=== PATIENT | male | born 1950 | race Caucasian/White ===

== ENCOUNTER 2022-06-09 09:10 | Inpatient (IN) | payer BC, MEDICARE ==
[2022-06-09] MEDS: DEXTROSE 5% IN WATER 1,000 ML IV ONE ×2 (12:00→21:45)
[2022-06-09 12:09] LABS: Glucose,Whole Blood 129 mg/dL (70-110)
[2022-06-09] MEDS ORDERED: NALOXONE 0.4 MG/ML 1 ML VIAL IV PRN (12:27)
[2022-06-09 12:28] LABS: ABG HCO3 25 mmol/L (21-25); ABG PCO2 37 mmHg (35-45); ABG PH 7.44 (7.35-7.45); ABG PO2 143 mmHg (83-108); ABG TCO2 26 mmol/L (19-24)
[2022-06-09 12:30] LABS: Allen Test Performed? no
--- NOTE | 2022-06-09 12:40 | PCN ---
PROCEDURE NOTE This is a Pulmonary/Critical Care procedure note. PROCEDURE: Left radial art line. PREOPERATIVE DIAGNOSES: Frequent blood draws and blood gas monitoring. POSTOPERATIVE DIAGNOSES: Frequent blood draws and blood gas monitoring. OPERATORS: Dr. Corey and Dr. Barcenas. PROCEDURE IN DETAIL: We used the left radial artery. There was no immediate complication. There was good blood return and waveform. The patient tolerated the procedure well. The catheter was sutured in place. A sterile dressing was applied by the nurse. There was no immediate complication, and there was informed consent and universal timeout. MMODL / IJN: [id number] /
--- NOTE | 2022-06-09 13:03 | P.CNPUL ---
History of Present Illness Consult date: 06/09/22 Requesting physician: Marii Rodriguez Reason for consult: other Chief complaint: Anoxic brain injury, cardiopulmonary arrest History of present illness: This is a 71-year-old male patient who was transferred from [facility] today on 06/09/2022 with a diagnosis of anoxic brain injury secondary to cardiopulmonary arrest. On 06/05/2022 patient was a witnessed collapse at home per his family. The exact details of resuscitation efforts, total downtime is unknown to us from the available documentation sent over from [facility], however there is a mention that patient had multiple unsuccessful intubation attempts per EMS related to a edematous upper airways. He was intubated by ER physician upon arrival to the [facility] emergency department. Per the nursing staff the reports starting CPR, and when EMS arrived the monitor showed sinus tachycardia. ACLS interventions are not known to us other than intubation attempts. Patient has history of multiple comorbid conditions including CVA, hypertension, poorly controlled diabetes mellitus type 2, previous history of DVT on Xarelto. Computed tomography scan of the brain showed no evidence for acute intracranial hemorrhage, no acute infarct, mass, mass effect or midline shift. There was mild white matter hypodensity relating to chronic small vessel ischemic disease. chest x-ray showed evidence of scattered septal opacities throughout the lungs possibly related to pulmonary edema. Patient was started on empiric antibiotics. He was started on IV Decadron related to upper airway edema. Computed tomography scan of the neck was reportedly negative. Patient's urine culture was reported to be positive for enterococci, and his sputum was positive for Klebsiella species. We'll try to obtain further information. Initial laboratory evaluation showed white blood cell count of 16.7, hemoglobin of 13.2, platelet count is 245, sodium is 137, potassium is 5.4, chloride is 100, CO2 is 21.8, BUN is 47, creatinine is 3.0, glucose was 408, calcium is 8.5, magnesium is 1.9, AST was 39, ALT was 26, alk phos was 71, total bilirubin was 1.2, INR was 1.07, urinalysis showed 2+ glucose, 1+ ketones, 3+ blood, 1+ leukocyte esterase, greater than 25 white blood cells, first set of troponins was less than 0.020, hemoglobin A1c was 9.1, TSH was 3.072. His antibiotic coverage was switched to Zosyn, renal ultrasound shows no hydronephrosis bilaterally. Follow-up computed tomography scan of the brain yesterday on 06/08/2022 showed no acute intracranial hemorrhage or midline shift, mild to moderate diffuse ventricular and sulcal prominence consistent with diffuse age-related cerebral atrophy, moderate low attenuation in the periventricular white matter consistent with chronic small vessel ischemic change, and near complete opacification of the right sphenoid sinus which was nonspecific. Patient has not been on any sedation, he remains intubated, according to the nursing staff patient was given a spontaneous breathing trial yesterday. He is comatose after being 2 days off sedation, he is withdrawing to pain, he is on assist-control mode of ventilation right now, he was transferred to the [facility] intensive care unit for neurology evaluation and treatment for possibility of anoxic brain injury. He was started on Keppra, stat EEG is pending. On arrival patient is on assist-control mode with a rate of 10, tidal volume is 500, FiO2 of 30% and PEEP of 5. He is on D5 W at a rate of 75 ML per hour for hyponatremia with a sodium of 153, no other drips. His propofol has been off for over 48 hours. No other sedatives, narcotics or hypnotics were given during that time. Blood gas was obtained on those settings showing pO2 of 143, pCO2 of 37, and pH of 7.44 and this was done on FiO2 of 30%. The rest of the blood work is pending at this time Review of Systems Per the chart, patient is unresponsive and intubated All systems: negative Constitutional: Denies chills, Denies fever Eyes: denies blurred vision, denies pain Ears, nose, mouth and throat: Denies headache, Denies sore throat Cardiovascular: Denies chest pain, Denies shortness of breath Respiratory: Denies cough Gastrointestinal: Denies abdominal pain, Denies diarrhea, Denies nausea, Denies vomiting Musculoskeletal: Denies myalgias Integumentary: Denies pruritus, Denies rash Neurological: Denies numbness, Denies weakness Psychiatric: Denies anxiety, Denies depression Endocrine: Denies fatigue, Denies weight change Past Medical History Past Medical History: CVA/TIA, Diabetes Mellitus, Deep Vein Thrombosis (DVT) Medications and Allergies Allergies Allergy/AdvReac Type Severity Reaction Status Date / Time No Known Allergies Allergy Verified 06/09/22 11:06 Physical Exam Vitals: Vital Signs FiO2 06/09/22 12:04 30 06/09/22 12:00 30 Intake and Output 06/08/22 06/09/22 06/09/22 22:59 06:59 14:59 Other: Weight 91.5 kg GENERAL EXAM: Unresponsive, deeply comatose, intubated, withdraws to deep painful stimuli, breathing disorder the vent, and does have a gag reflex comfortable in no apparent distress. HEAD: Normocephalic/atraumatic. EYES: Normal reaction of pupils, equal size. Conjunctiva pink, sclera white. NOSE: Clear with pink turbinates. THROAT: No erythema or exudates. NECK: No masses, no JVD, no thyroid enlargement, no adenopathy. CHEST: No chest wall deformity. Symmetrical expansion. LUNGS: Equal air entry with no crackles, wheeze, rhonchi or dullness. CVS: Regular rate and rhythm, normal S1 and S2, no gallops, no murmurs, no rubs ABDOMEN: Soft, nontender. No hepatosplenomegaly, normal bowel sounds, no guarding or rigidity. EXTREMITIES: No clubbing, no edema, no cyanosis, 2+ pulses and upper and lower extremities. MUSCULOSKELETAL: Muscle strength and tone increased, with possible decerebrate posturing SPINE: No scoliosis or deformity SKIN: No rashes CENTRAL NERVOUS SYSTEM: No focal deficits, increased muscle tone with decerebrate posturing Results - Laboratory Findings Abnormal lab findings: Abnormal Labs 06/09/22 12:08 POC Glucose (mg/dL) 129 H - Diagnostic Findings Additional studies: Reports of the chest x-ray, computed tomography scan of the brain from the [facility] reviewed, films have been sent to radiology Department Assessment and Plan Plan: Assessment: #1. Acute anoxic brain injury related to acute cardiopulmonary arrest. Patient was admitted to [facility] on 06/05/2022 after suffering of witnessed collapse per his family, with initiation of CPR, difficult intubation out in the field due to upper airway edema. Primary cause of the cardiopulmonary arrest is unknown at this time, awaiting further records from the [facility] #2. Acute hypoxic respiratory failure possibly related to aspiration pneumonia and sepsis. Sputum cultures showed Klebsiella species #3. Acute urinary tract infection related to enterococcus species currently on Zosyn #4. Acute kidney injury #5. Poorly controlled diabetes mellitus type 2 #6. Hypertension #7. Previous history of DVT on the Route toe #8. History of CVA Plan: Blood gas has been reviewed, Necessary vent adjustments have been made We will obtain baseline chest x-ray Stat neurology consultation Stat EEG Keep off sedation We'll continue Zosyn We will obtain further records from the [facility] Continue on Keppra DuoNeb breathing treatments 4 times a day and when necessary Daily labs, CBC, CMP, daily blood gas and chest x-ray Nephrology, cardiology, and ID service consultation in addition to neurology We'll continue to closely follow his clinical course I have personally seen and examined the patient, performed the documentation and the assessment and plan as written. Number of minutes spent on the visit: [15] Time with Patient: Greater than 30
--- NOTE | 2022-06-09 13:29 | XR ---
EXAMINATION TYPE: XR chest 1V portable DATE OF EXAM: 06/09/2022 COMPARISON: NONE HISTORY: Cardiac arrest TECHNIQUE: Single frontal view of the chest is obtained. FINDINGS: Endotracheal tube is overlying the tracheal air column with the distal tip approximately 6 cm from the level of the sathya. Left subclavian central venous catheter shows the distal tip overlyi ng the left innominate vein. There are overlying artifacts. NG tube is in place. There is no focal ai r space opacity, pleural effusion, or pneumothorax seen. The cardiac silhouette size is within riley l limits. Lung volumes are somewhat low. The osseous structures are intact. IMPRESSION: Intubation, central venous catheter placement as described, no evident complication
[2022-06-09] MEDS: INSULIN ASPART (NovoLOG) 100 UNIT/ML VIAL SQ SCH ×2 (13:49→16:59)
[2022-06-09 13:57] LABS: Basophils # (A) 0.1 k/uL (0-0.2); Basophils % (A) 0 %; Eosinophils # (A) 0.1 k/uL (0-0.7); Eosinophils % (A) 1 %; HGB 12.4 gm/dL (13.0-17.5); Lymphocytes # (A) 1.3 k/uL (1.0-4.8); Lymphocytes % (A) 11 %; MCH 29.6 pg (25.0-35.0); MCHC 33.5 g/dL (31.0-37.0); MCV 88.2 fL (80.0-100.0); Mean Platelet Volume 8.1; Monocytes # (A) 0.8 k/uL (0-1.0); Monocytes % (A) 8 %; Neutrophils % (A) 80 %; Platelet Count 249 k/uL (150-450); RDW 14.4 % (11.5-15.5); WBC 11.3 k/uL (3.8-10.6)
[2022-06-09 14:05] LABS: INR 0.9 (<1.2); Prothrombin Time 10.4 sec (9.0-12.0)
[2022-06-09 14:13] LABS: Albumin 2.9 g/dL (3.5-5.0); Total Bilirubin 0.6 mg/dL (0.2-1.3); Total Protein 5.4 g/dL (6.3-8.2)
[2022-06-09] MEDS: IPRATROPIUM-ALBUTEROL 3 ML NEB INHALATION SCH ×2 (15:37→19:49)
[2022-06-09 16:43] LABS: Glucose,Whole Blood 193 mg/dL (70-110)
[2022-06-09] MEDS: CLEVIDIPINE BUTYRATE 25 MG in EMPTY BAG 1 BAG IV SCH (16:58)
[2022-06-09] MEDS: PIPERACILLIN-TAZOBACTAM 3.375 GM in SODIUM CHLORIDE 0.9% 100 ML IVPB SCH (16:59)
[2022-06-09] MEDS: levETIRAcetam IV 500 MG in SODIUM CHLORIDE 0.9% 100 ML IVPB SCH (21:06)
[2022-06-09] MEDS: CHLORHEXIDINE GLUCONATE 15 ML CUP MUCOUS MEM SCH (21:06)
--- NOTE | 2022-06-09 22:41 | P.CONS ---
History of Present Illness - Reason for Consult Consult date: 06/09/22 Sepsis Requesting physician: Aubrey Corey - Chief Complaint Unresponsive x few days - History of Present Illness Patient is a 71-year male who recently presented to [facility] after the patient was found to be unresponsive at home subsequently adm itted to ICU patient did have evidence of Klebsiella pneumonia and did have positive blood culture with staph epi likely skin contamination, patient remains to be less responsive despite being off the sedation and the patient be transferred to [facility] ER to be evaluated by neurology and to have a EEG completed patient on presentation to this hospital has been afebrile patient is hemodynamically stable not requiring pressor support FiO2 is currently at 30% no significant purulent secretion through the ET diarrhea or any other changes reported by nursing staff Review of Systems Positive points has been mentioned in HPI complete review could not be obtained because of his underlying mental status Past Medical History Past Medical History: CVA/TIA, Diabetes Mellitus, Deep Vein Thrombosis (DVT) History of Any Multi-Drug Resistant Organisms: None Reported Past Surgical History: Heart Catheterization Additional Past Surgical History / Comment(s): No stenting with heart cath Past Anesthesia/Blood Transfusion Reactions: No Reported Reaction Smoking Status: Never smoker Medications and Allergies Home Medications Medication Instructions Recorded Confirmed Type Atorvastatin Calcium [Lipitor] 40 mg PO HS 06/09/22 06/09/22 History DULoxetine HCL [Cymbalta] 30 mg PO HS 06/09/22 06/09/22 History Folic Acid 1 mg PO DAILY 06/09/22 06/09/22 History Furosemide [Lasix] 20 mg PO DAILY PRN 06/09/22 06/09/22 History Insulin Aspart Prot/Insuln Asp 75 units SQ DIRECTED 06/09/22 06/09/22 History [Novolog Mix 70-30 Flexpen] Ketorolac 0.5% Ophth Soln [Acular 1 drop OPHTHALMIC QID 06/09/22 06/09/22 History 0.5%] Rivaroxaban [Xarelto] 20 mg PO DAILY 06/09/22 06/09/22 History amLODIPine [Norvasc] 10 mg PO DAILY 06/09/22 06/09/22 History lisinopriL [Zestril] 20 mg PO DAILY 06/09/22 06/09/22 History Allergies Allergy/AdvReac Type Severity Reaction Status Date / Time No Known Allergies Allergy Verified 06/09/22 11:06 Physical Exam Vitals: Vital Signs Temp Pulse Resp BP Pulse Ox FiO2 06/09/22 13:50 98 16 156/90 99 06/09/22 13:40 82 13 152/71 99 06/09/22 13:30 78 14 154/71 99 06/09/22 13:20 79 22 154/71 99 06/09/22 13:10 79 12 148/69 99 06/09/22 13:00 59 H 155/73 99 06/09/22 12:50 30 H 172/84 99 06/09/22 12:40 76 14 172/84 99 06/09/22 12:30 80 13 172/84 99 06/09/22 12:20 80 9 L 172/84 06/09/22 12:10 83 6 L 100 06/09/22 12:04 30 06/09/22 12:02 98.5 F 85 14 99 06/09/22 12:00 30 Intake and Output 06/09/22 06/09/22 06/09/22 06:59 14:59 22:59 Intake Total 156 Output Total 500 Balance -344 Intake: IV 6 0.9 Pressure Bag 6 Intake, IV Titration 150 Amount Dextrose 5% in Water 1, 150 000 ml @ 75 mls/hr IV . [id number] ONE Rx#:[id number] Output: Urine 500 Other: Weight 91.5 kg ABP, PAP, CO, CI - Last 8 Hours Arterial Blood Pressure 158/119 Arterial Blood Pressure 115/115 Arterial Blood Pressure 173/68 Arterial Blood Pressure 165/62 Arterial Blood Pressure 128/123 Arterial Blood Pressure 117/110 Arterial Blood Pressure 127/89 Arterial Blood Pressure 135/76 Arterial Blood Pressure 157/69 Arterial Blood Pressure 185/82 Arterial Blood Pressure 164/119 GENERAL DESCRIPTION: Elderly male intubated on the vent HEENT: Shows Pallor , no scleral icterus. Oral mucous membrane is dry. NECK: Trachea central, no thyromegaly. LUNGS: Unlabored breathing. Clear to auscultation anteriorly. No wheeze or crackle. HEART: S1, S2, regular rate and rhythm. No loud murmur ABDOMEN: Soft, no tenderness , guarding or rigidity, no organomegaly EXTREMITIES: No edema of feet. SKIN: No rash, no masses palpable. NEUROLOGICAL: The patient is sedated on the vent Results CBC & Chem 7: 06/13/22 07:50 06/13/22 07:50 Labs: Abnormal Lab Results - Last 24 Hours (Table) 06/09/22 06/09/22 06/09/22 Range/Units 12:08 12:26 13:40 WBC 11.3 H (3.8-10.6) k/uL RBC 4.20 L (4.30-5.90) m/uL Hgb 12.4 L (13.0-17.5) gm/dL Hct 37.0 L (39.0-53.0) % Neutrophils # 9.0 H (1.3-7.7) k/uL ABG pO2 143 H (83-108) mmHg ABG Total CO2 26 H (19-24) mmol/L ABG O2 Saturation 100.0 H (94-97) % Sodium (137-145) mmol/L Chloride (98-107) mmol/L BUN (9-20) mg/dL Creatinine (0.66-1.25) mg/dL Glucose (74-99) mg/dL POC Glucose (mg/dL) 129 H (70-110) mg/dL Calcium (8.4-10.2) mg/dL Troponin I (0.000-0.034) ng/mL Total Protein (6.3-8.2) g/dL Albumin (3.5-5.0) g/dL 06/09/22 06/09/22 Range/Units 13:40 13:40 WBC (3.8-10.6) k/uL RBC (4.30-5.90) m/uL Hgb (13.0-17.5) gm/dL Hct (39.0-53.0) % Neutrophils # (1.3-7.7) k/uL ABG pO2 (83-108) mmHg ABG Total CO2 (19-24) mmol/L ABG O2 Saturation (94-97) % Sodium 150 H (137-145) mmol/L Chloride 117 H (98-107) mmol/L BUN 65 H (9-20) mg/dL Creatinine 2.65 H (0.66-1.25) mg/dL Glucose 160 H (74-99) mg/dL POC Glucose (mg/dL) (70-110) mg/dL Calcium 8.0 L (8.4-10.2) mg/dL Troponin I 0.043 H* (0.000-0.034) ng/mL Total Protein 5.4 L (6.3-8.2) g/dL Albumin 2.9 L (3.5-5.0) g/dL Assessment and Plan (1) Aspiration pneumonia Status: Acute Code(s): J69.0 - PNEUMONITIS DUE TO INHALATION OF FOOD AND VOMIT SNOMED Code(s): 192149550 Plan: 1patient with acute respiratory failure which is likely multifactorial in this patient did have a [id number] cardiac arrest and concern for possible anoxic encephalopathy for the patient be transferred to this hospital to be evaluated by neurology and did have EEG completed patient did have complaint of pneumonia likely aspiration etiology suitable positive for Klebsiella at [facility]. 2patient to continue with Zosyn. We will follow on clinical condition and cultures to further adjust medication if needed Thank you for this consultation will follow this patient along with you Time with Patient: Greater than 30
[2022-06-10 00:05] LABS: Glucose,Whole Blood 277 mg/dL (70-110)
[2022-06-10] MEDS: PIPERACILLIN-TAZOBACTAM 3.375 GM in SODIUM CHLORIDE 0.9% 100 ML IVPB SCH ×4 (00:06→23:22)
[2022-06-10] MEDS: INSULIN ASPART (NovoLOG) 100 UNIT/ML VIAL SQ SCH ×3 (00:06→12:20)
[2022-06-10] MEDS: IPRATROPIUM-ALBUTEROL 3 ML NEB INHALATION SCH ×6 (00:11→19:35)
--- NOTE | 2022-06-10 00:45 | HP ---
HISTORY AND PHYSICAL CHIEF COMPLAINT: Acute respiratory arrest and anoxic brain damage. HISTORY OF PRESENT ILLNESS: This is a 71-year-old gentleman with a past medical history of multiple medical problems, who apparently had respiratory difficulties and collapse in the field. There was some delay in intubation. The patient was subsequently transferred to [facility] Emergency Room and was admitted in the ICU, but the patient has suspected anoxic brain damage, and then Dr. Tomlinson would like the patient to be transferred to [facility] for further evaluation and treatment at this time. Currently, the patient is intubated and mechanically ventilated. Vent settings are noted. The patient also has suspected aspiration pneumonia. The patient is on broad-spectrum IV antibiotics. The patient is closely monitored in ICU at this time. The patient is unable to provide a coherent history. Most of the history is taken from discussion with staff and review of the chart at this time. PAST MEDICAL HISTORY: Reviewed and includes hypertension. HOME MEDICATIONS: Previous medications were reviewed. SOCIAL HISTORY: Could not be taken because of the patient's mental status. FAMILY HISTORY: Could not be taken because of the patient's mental status. REVIEW OF SYSTEMS: Could not be taken because of the patient's mental status. PHYSICAL EXAMINATION: VITAL SIGNS: Pulse is 80, blood pressure 140/90, respirations 20. HEENT: Conjunctivae are normal. NECK: No jugular venous distention. CARDIOVASCULAR: S1 and S2 muffled. RESPIRATORY: Breath sounds diminished at the bases. Few scattered rhonchi and crackles. ABDOMEN: Soft and nontender. LEGS: No edema. CENTRAL NERVOUS SYSTEM: The patient is on mechanical ventilation. SKIN: No ulcer or rashes. JOINTS: No active deforming arthropathy LABORATORY DATA: Reviewed. ASSESSMENT: 1. Anoxic brain injury, possibly secondary to cardiorespiratory arrest. 2. Possible aspiration pneumonia and sepsis with acute hypoxic respiratory failure, on mechanical ventilation. 3. Acute urinary tract infection. 4. Diabetes mellitus, type 2. 5. Hypertension. 6. History of cerebrovascular accident. 7. History of deep venous thrombosis. RECOMMENDATIONS AND DISCUSSION: This is a 71-year-old gentleman presented with multiple complex medical issues. We will monitor the patient closely. Continue to monitor in the ICU. Broad-spectrum IV antibiotics. Bronchodilators. DVT prophylaxis. Closely follow with Dr. Corey. I would also recommend Neurology consultation and EEG also to evaluate the brain injury. Otherwise, overall prognosis is guarded. See orders for details. Further recommendations to follow. MMODL / IJN: [id number] /
--- NOTE | 2022-06-10 04:36 | EEG ---
ELECTROENCEPHALOGRAM REPORT PREAMBLE: This is a 71-year-old male with cardiac arrest. This study is performed to evaluate for underlying cerebral activity. The patient off sedation for last 48 hours. Patient is comatose. EEG FINDINGS: This is a 21-channel digital EEG recorded with video component, utilizing 10/20 international system with referential and bipolar montages. Background consists of poorly developed and regulated, mixed frequencies of 3-4 hertz theta, intermixed with some 1-2 hertz delta activity seen in bihemispheric region. Background does not seem to be reactive to coughing or suctioning procedure. Different stages of sleep were not seen. No focal or generalized epileptiform activity was seen. IMPRESSION: This is an abnormal EEG due to background slowing of at least moderate to severe degree. This is suggestive of generalized cerebral dysfunction as can be seen with toxic metabolic encephalopathy or due to diffuse structural brain abnormality. Clinical correlation is recommended. No obvious epileptiform activity was seen. Followup EEG recommended, if clinically indicated. ALEKSANDRA / OPALN: [id number] / [facility]
[2022-06-10 05:07] LABS: Basophils % (A) 0 %; Eosinophils # (A) 0.1 k/uL (0-0.7); Eosinophils % (A) 1 %; HCT 34.9 % (39.0-53.0); HGB 11.8 gm/dL (13.0-17.5); Lymphocytes # (A) 1.1 k/uL (1.0-4.8); Lymphocytes % (A) 10 %; MCH 30.4 pg (25.0-35.0); MCHC 33.8 g/dL (31.0-37.0); Mean Platelet Volume 8.6; Monocytes # (A) 0.7 k/uL (0-1.0); Monocytes % (A) 7 %; Neutrophils # (A) 8.6 k/uL (1.3-7.7); Neutrophils % (A) 81 %; Platelet Count 219 k/uL (150-450); RBC 3.87 m/uL (4.30-5.90); RDW 14.8 % (11.5-15.5); WBC 10.6 k/uL (3.8-10.6)
[2022-06-10 05:48] LABS: Albumin 2.6 g/dL (3.5-5.0); Calcium 7.1 mg/dL (8.4-10.2); Potassium 3.8 mmol/L (3.5-5.1); Total Bilirubin 0.6 mg/dL (0.2-1.3); Total Protein 4.8 g/dL (6.3-8.2)
[2022-06-10] MEDS: CLEVIDIPINE BUTYRATE 25 MG in EMPTY BAG 1 BAG IV SCH ×4 (06:07→19:11)
[2022-06-10 06:09] LABS: Glucose,Whole Blood 345 mg/dL (70-110)
[2022-06-10 06:09] LABS: ABG HCO3 22 mmol/L (21-25); ABG Oxygen Saturation 99.8 % (94-97); ABG PCO2 34 mmHg (35-45); ABG PH 7.42 (7.35-7.45); ABG PO2 157 mmHg (83-108); ABG TCO2 24 mmol/L (19-24)
[2022-06-10 06:11] LABS: Allen Test Performed? No
[2022-06-10] MEDS ORDERED: POTASSIUM CHLORIDE 20 MEQ in WATER FOR INJECTION 1 100ML.BAG IVPB ONE (06:23)
--- NOTE | 2022-06-10 07:53 | P.PN ---
Subjective Progress Note Date: 06/10/22 Principal diagnosis: Respiratory failure. 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 On 06/05/2022 patient was a witnessed collapse at home per his family. The exact details of resuscitation efforts, total downtime is unknown to us from the available documentation sent over from [facility], however there is a mention that patient had multiple unsuccessful intubation attempts per EMS related to a edematous upper airways. He was intubated by ER physician upon arrival to the [facility] emergency department. Per the nursing staff the reports starting CPR, and when EMS arrived the monitor showed sinus tachycardia. ACLS interventions are not known to us other than intubation attempts. Patient has history of multiple comorbid conditions including CVA, hypertension, poorly controlled diabetes mellitus type 2, previous history of DVT on Xarelto. Computed tomography scan of the brain showed no evidence for acute intracranial hemorrhage, no acute infarct, mass, mass effect or midline shift. There was mild white matter hypodensity relating to chronic small vessel ischemic disease. chest x-ray showed evidence of scattered septal opacities throughout the lungs possibly related to pulmonary edema. Patient was started on empiric antibiotics. He was started on IV Decadron related to upper airway edema. Computed tomography scan of the neck was reportedly negative. Patient's urine culture was reported to be positive for enterococci, and his sputum was positive for Klebsiella species. We'll try to obtain further information. Initial laboratory evaluation showed white blood cell count of 16.7, hemoglobin of 13.2, platelet count is 245, sodium is 137, potassium is 5.4, chloride is 100, CO2 is 21.8, BUN is 47, creatinine is 3.0, glucose was 408, calcium is 8.5, magnesium is 1.9, AST was 39, ALT was 26, alk phos was 71, total bilirubin was 1.2, INR was 1.07, urinalysis showed 2+ glucose, 1+ ketones, 3+ blood, 1+ leukocyte esterase, greater than 25 white blood cells, first set of troponins was less than 0.020, hemoglobin A1c was 9.1, TSH was 3.072. His antibiotic coverage was switched to Zosyn, renal ultrasound shows no hydronephrosis bilaterally. Follow-up computed tomography scan of the brain yesterday on 06/08/2022 showed no acute intracranial hemorrhage or midline shift, mild to moderate diffuse ventricular and sulcal prominence consistent with diffuse age-related cerebral atrophy, moderate low attenuation in the periventricular white matter consistent with chronic small vessel ischemic change, and near complete opacification of the right sphenoid sinus which was nonspecific. Patient has not been on any sedation, he remains intubated, according to the nursing staff patient was given a spontaneous breathing trial yesterday. He is comatose after being 2 days off sedation, he is withdrawing to pain, he is on assist-control mode of ventilation right now, he was transferred to the [facility] intensive care unit for neurology evaluation and treatment for possibility of anoxic brain injury. He was started on Keppra, stat EEG is pending. On arrival patient is on assist-control mode with a rate of 10, tidal volume is 500, FiO2 of 30% and PEEP of 5. He is on D5 W at a rate of 75 ML per hour for hyponatremia with a sodium of 153, no other drips. His propofol has been off for over 48 hours. No other sedatives, narcotics or hypnotics were given during that time. Blood gas was obtained on those settings showing pO2 of 143, pCO2 of 37, and pH of 7.44 and this was done on FiO2 of 30%. The rest of the blood work is pending at this time Progress note dated 06/10/2022. This patient was transferred from [facility] yesterday, to our intensive care unit. The patient was poorly responsive/unresponsive, and there was some concern about anoxic brain injury. The patient did have a cardiopulmonary arrest. Unfortunately, the patient was not waking up over there, and because it did not have neurology coverage see her, the patient was transferred here, by my partner. He was intubated on June 05. Currently, he remains on mechanical ventilator. Yesterday, we saw him when he came over and placed a left radial art line. He really had a central line. Neurology was consulted. EEG showed diffuse slowing. Norvasc was initiated today. Ventilator settings include the volume assist control, rate 16, tidal volume 500, FiO2 30%, and PEEP of 5. Blood gases show pO2 157, pCO2 34, pH is 7.42. The FiO2 was reduced down to 25%. The patient's getting D5W at 75 mL an hour, Cleveprex at 12 mg an hour, saline at 20 mL an hour, and vital high protein at 20 mL an hour, with a goal of 53. Labs today include a white count 10.6, hemoglobin 11.8, hematocrit 34.9, and platelet count 290,000. Sodium 145, potassium 3.8, chlorides 117, CO2 21, BUN 62, creatinine 2.59. Albumin is 2.6. Chest x-ray looks surprisingly normal, with a mildly elevated right diaphragm. The report from the outside hospital was sent the urine was positive for enterococci his sputum was positive for Klebsiella. Objective - Vital Signs Vital signs: Vital Signs Temp 98.9 F 06/10/22 04:00 Pulse 80 06/10/22 06:00 Resp 14 06/10/22 06:00 BP 132/58 06/10/22 06:00 Pulse Ox 98 06/10/22 06:00 FiO2 25 06/10/22 07:00 Intake & Output 06/09/22 06/10/22 06/10/22 18:59 06:59 18:59 Intake Total 471 1436.000 98 Output Total 850 850 25 Balance -379 586.000 73 Weight 94.5 kg 95.4 kg Intake: IV 471 936 78 0.9 Pressure Bag 21 36 3 Dextrose 5% in Water 1, 450 900 75 000 ml @ 75 mls/hr IV . [id number] [facility] Rx#:[id number] Intake, IV Titration 250.000 Amount Clevidipine Butyrate 25 50.000 mg In Empty Bag 1 bag @ 1 MG/HR 2 mls/hr IV .Q24H [facility] Rx#:[id number] Piperacillin-Tazobactam 3 100 .375 gm In Sodium Chloride 0.9% 100 ml @ 25 mls/hr IVPB Q8HR [facility] Rx# :[id number] levETIRAcetam IV 500 mg 100 In Sodium Chloride 0.9% 100 ml @ 400 mls/hr IVPB Q12HR [facility] Rx#:[id number] Tube Feeding 160 20 Other 90 Output: Urine 850 850 25 Other: Voiding Method Indwelling Catheter Indwelling Catheter ABP, PAP, CO, CI - Last Documented Arterial Blood Pressure 158/52 - Exam No acute distress, not on any sedation, and only responsive deep pain. No gag r eflex. Pupils sluggishly reactive. HEENT examination is grossly unremarkable. Oral endotracheal tube noted. Neck supple. Full range of motion. No adenopathy thyromegaly or neck vein distention. Cardiovascular examination reveals regular rhythm rate. S1-S2 normal. No S3 or S4. No discernible murmur noted. Heart rate 80 bpm. Lungs reveal mostly clear breath sounds. Minimal scattered rhonchi. No wheezes or crackles. Saturations 98%. Abdomen soft with bowel sounds. No masses. Extremities are intact. No cyanosis clubbing or edema. Skin reveals some bilateral lower extremity chronic venous changes. Neurologic examination is is unchanged. - Labs CBC & Chem 7: 06/10/22 04:45 06/10/22 04:45 Labs: Abnormal Lab Results - Last 24 Hours (Table) 06/09/22 06/09/22 06/09/22 Range/Units 12:08 12:26 13:40 WBC 11.3 H (3.8-10.6) k/uL RBC 4.20 L (4.30-5.90) m/uL Hgb 12.4 L (13.0-17.5) gm/dL Hct 37.0 L (39.0-53.0) % Neutrophils # 9.0 H (1.3-7.7) k/uL ABG pCO2 (35-45) mmHg ABG pO2 143 H (83-108) mmHg ABG Total CO2 26 H (19-24) mmol/L ABG O2 Saturation 100.0 H (94-97) % Sodium (137-145) mmol/L Chloride (98-107) mmol/L Carbon Dioxide (22-30) mmol/L BUN (9-20) mg/dL Creatinine (0.66-1.25) mg/dL Glucose (74-99) mg/dL POC Glucose (mg/dL) 129 H (70-110) mg/dL Calcium (8.4-10.2) mg/dL Troponin I (0.000-0.034) ng/mL Total Protein (6.3-8.2) g/dL Albumin (3.5-5.0) g/dL 06/09/22 06/09/22 06/09/22 Range/Units 13:40 13:40 16:42 WBC (3.8-10.6) k/uL RBC (4.30-5.90) m/uL Hgb (13.0-17.5) gm/dL Hct (39.0-53.0) % Neutrophils # (1.3-7.7) k/uL ABG pCO2 (35-45) mmHg ABG pO2 (83-108) mmHg ABG Total CO2 (19-24) mmol/L ABG O2 Saturation (94-97) % Sodium 150 H (137-145) mmol/L Chloride 117 H (98-107) mmol/L Carbon Dioxide (22-30) mmol/L BUN 65 H (9-20) mg/dL Creatinine 2.65 H (0.66-1.25) mg/dL Glucose 160 H (74-99) mg/dL POC Glucose (mg/dL) 193 H (70-110) mg/dL Calcium 8.0 L (8.4-10.2) mg/dL Troponin I 0.043 H* (0.000-0.034) ng/mL Total Protein 5.4 L (6.3-8.2) g/dL Albumin 2.9 L (3.5-5.0) g/dL 06/10/22 06/10/22 06/10/22 Range/Units 00:03 04:45 04:45 WBC (3.8-10.6) k/uL RBC 3.87 L (4.30-5.90) m/uL Hgb 11.8 L (13.0-17.5) gm/dL Hct 34.9 L (39.0-53.0) % Neutrophils # 8.6 H (1.3-7.7) k/uL ABG pCO2 (35-45) mmHg ABG pO2 (83-108) mmHg ABG Total CO2 (19-24) mmol/L ABG O2 Saturation (94-97) % Sodium (137-145) mmol/L Chloride 117 H (98-107) mmol/L Carbon Dioxide 21 L (22-30) mmol/L BUN 62 H (9-20) mg/dL Creatinine 2.59 H (0.66-1.25) mg/dL Glucose 309 H (74-99) mg/dL POC Glucose (mg/dL) 277 H (70-110) mg/dL Calcium 7.1 L (8.4-10.2) mg/dL Troponin I (0.000-0.034) ng/mL Total Protein 4.8 L (6.3-8.2) g/dL Albumin 2.6 L (3.5-5.0) g/dL 06/10/22 06/10/22 Range/Units 05:32 06:07 WBC (3.8-10.6) k/uL RBC (4.30-5.90) m/uL Hgb (13.0-17.5) gm/dL Hct (39.0-53.0) % Neutrophils # (1.3-7.7) k/uL ABG pCO2 34 L (35-45) mmHg ABG pO2 157 H (83-108) mmHg ABG Total CO2 (19-24) mmol/L ABG O2 Saturation 99.8 H (94-97) % Sodium (137-145) mmol/L Chloride (98-107) mmol/L Carbon Dioxide (22-30) mmol/L BUN (9-20) mg/dL Creatinine (0.66-1.25) mg/dL Glucose (74-99) mg/dL POC Glucose (mg/dL) 345 H (70-110) mg/dL Calcium (8.4-10.2) mg/dL Troponin I (0.000-0.034) ng/mL Total Protein (6.3-8.2) g/dL Albumin (3.5-5.0) g/dL Assessment and Plan Assessment: #1. Acute anoxic brain injury related to acute cardiopulmonary arrest. Patient was admitted to [facility] on 06/05/2022 after suffering of witnessed collapse per his family, with initiation of CPR, difficult intubation out in the field due to upper airway edema. Primary cause of the cardiopulmonary arrest is unknown at this time, awaiting further records from the [facility]. #2. Acute hypoxic respiratory failure possibly related to aspiration pneumonia and sepsis. Sputum cultures showed Klebsiella species. #3. Acute urinary tract infection related to enterococcus species currently on Zosyn. #4. Acute kidney injury. #5. Poorly controlled diabetes mellitus type 2. #6. Hypertension. #7. Previous history of DVT. #8. History of CVA Plan: Plan dated 06/10/2022. The patient is being nourished. We will increase tube feedings to goal. The FiO2 on the ventilator was reduced down to 25%. We will initiate Norvasc today, which she was taking at home, and weaning the Cleveprex. Sodium is much improved. Blood gases are stable. The patient is apparently scheduled for repeat computed tomography scan of the brain today. Neurology was consulted. EEG showed diffuse moderate to severe slowing. This is consistent with anoxic and/or metabolic encephalopathy. If the patient does not improve, consideration of tracheostomy and PEG tube placement will be discussed with family. Time with Patient: Greater than 30
[2022-06-10] MEDS: ENOXAPARIN 30 MG/0.3 ML SYRINGE SQ SCH (08:05)
[2022-06-10] MEDS: FOLIC ACID 1 MG TAB PO SCH (08:05)
[2022-06-10] MEDS: ATORVASTATIN 40 MG TAB PO SCH (08:05)
[2022-06-10] MEDS: levETIRAcetam IV 500 MG in SODIUM CHLORIDE 0.9% 100 ML IVPB SCH ×2 (08:05→20:32)
[2022-06-10] MEDS: amLODIPine 10 MG TAB PO SCH (08:05)
[2022-06-10] MEDS: PANTOPRAZOLE 40 MG/10 ML VIAL IV SCH (08:06)
[2022-06-10] MEDS: CHLORHEXIDINE GLUCONATE 15 ML CUP MUCOUS MEM SCH ×2 (08:06→20:32)
--- NOTE | 2022-06-10 08:17 | P.CNNES ---
History of Present Illness Consult date: 06/09/22 Requesting physician: Risa Del Valle Reason for Consult: Pt off sedation not waking up History of Present Illness: Patient is a 71-year-old male who presented by EMS to [facility] on 06/05/2022 at around noon for unresponsiveness. EMS reported that they were contacted by the patient's family with the report that family had witnessed the patient collapsed approximately an hour to an hour and a half prior to arrival to the emergency department. Patient does have history of CVA and take Xarelto. Patient did not fall or suffer from trauma during the acute unresponsiveness, as he was sitting in the lazy boy recliner. EMS reported that they attempted to intubate the patient but were unsuccessful. Patient arrived being bagged with the GCS of 3. EMS reported several failed attempts to intuba te the patient in the field. Patient's , and her sister in patient's brother present today. They mentioned that patient has been suffering from frequent falls for the last 1 year. He is felt 4 or 5 times, couple times of the home, other times at other places. He would fall, unclear if he loses consciousness or falls because of losing balance. Patient apparently passed out while he was sitting in the recliner. Patient's has dementia, could not get him up. She went to her sister's house and informed to help her get up. Then patient's and her sister came over, patient was laying in the recliner, half on, and the lower half on the floor. He was snowboarding, gurgling with agonal breathing. Shortly after she noticed that patient was not breathing with no pulse. She started CPR and called EMS. They arrived within minutes. And after short CPR, the pulse came back. Exact downtime is unclear. Patient was initially taken to [facility]. He was transferred to [facility] and arrived today at 11:57 AM. Patient is off sedation for last 48 hours. Patient's [id number] has noticed that he had a one big jerk once. Nurse reported some transient tremor of the left upper arm for which he has received Keppra. Patient has history of arthritis, diabetes type 2, DVT on Xarelto, GERD hypertension. Patient's blood tests at [facility] showed a BBC 16.7, hemoglobin 13.2, platelets 345. Sodium 137 potassium 5.4, BUN 47 and creatinine 3.0, AST 39, ALT 26. Troponin 81. ENTproBNP 2195, UA showed 1+ leukocyte esterase, more than 25 WBCs and no bacteria. Urine drug screen was negative. Blood alcohol level negative. PT/PTT was normal. CT head revealed no evidence for acute intracranial hemorrhage, acute infarct, mass effect or mi dline shift. No extra-axial fluid collection. Mild ventricular megaly is unchanged likely secondary to central cerebral volume loss. Mild white matter hypodensity relating to chronic small vessel ischemic disease, unchanged. Patient was seen by professor of biostatistics, diagnosed with non-STEMI related to septic shock and prolonged downtime. Septic shock, due to UTI, acute kidney injury. Patient had a prior XIN which showed no cardiac source of emboli. Patient was seen by nephrology, diagnosed with acute kidney injury due to bacteremia, chronic renal disease stage III hemoglobin A1c 7.[address] head from 06/08/2022 revealed no acute intracranial hemorrhage or midline shift. There is mild to moderate diffuse cerebral atrophy and moderate chronic small vessel ischemic change redemonstrated. No significant change from recent prior CT. I personally reviewed CT head from 06/05/2022 and 06/08/2022 and agree with the findings. 2-D echo revealed LV EF 55-60%. Normal left ventricular segmental wall motion. Mild AR. Patient has no history of tobacco or alcohol use. He does have type 2 diabetes and hypertension. Review of Systems Spoke to the family, not able to provide any further review of systems. He was fine prior to passing out. ROS unobtainable: due to endotracheal tube, due to mental status Past Medical History Past Medical History: CVA/TIA, Diabetes Mellitus, Deep Vein Thrombosis (DVT) History of Any Multi-Drug Resistant Organisms: None Reported Past Surgical History: Heart Catheterization Additional Past Surgical History / Comment(s): No stenting with heart cath Past Anesthesia/Blood Transfusion Reactions: No Reported Reaction Smoking Status: Never smoker Medications and Allergies Home Medications Medication Instructions Recorded Confirmed Type Atorvastatin Calcium [Lipitor] 40 mg PO HS 06/09/22 06/09/22 History DULoxetine HCL [Cymbalta] 30 mg PO HS 06/09/22 06/09/22 History Folic Acid 1 mg PO DAILY 06/09/22 06/09/22 History Furosemide [Lasix] 20 mg PO DAILY PRN 06/09/22 06/09/22 History Insulin Aspart Prot/Insuln Asp 75 units SQ DIRECTED 06/09/22 06/09/22 History [Novolog Mix 70-30 Flexpen] Ketorolac 0.5% Ophth Soln [Acular 1 drop OPHTHALMIC QID 06/09/22 06/09/22 History 0.5%] Rivaroxaban [Xarelto] 20 mg PO DAILY 06/09/22 06/09/22 History amLODIPine [Norvasc] 10 mg PO DAILY 06/09/22 06/09/22 History lisinopriL [Zestril] 20 mg PO DAILY 06/09/22 06/09/22 History Allergies Allergy/AdvReac Type Severity Reaction Status Date / Time No Known Allergies Allergy Verified 06/09/22 11:06 Physical Examination - Vital Signs Vital Signs: Vital Signs Temp Pulse Resp BP Pulse Ox FiO2 06/09/22 15:20 75 16 141/66 98 06/09/22 15:10 75 14 146/66 98 06/09/22 15:00 75 16 142/66 99 06/09/22 14:50 75 13 142/66 98 06/09/22 14:40 76 13 144/68 98 06/09/22 14:30 78 16 143/66 99 06/09/22 14:20 74 16 143/66 99 06/09/22 14:10 75 16 147/68 99 06/09/22 14:00 77 18 156/90 98 06/09/22 13:50 98 16 156/90 99 06/09/22 13:40 82 13 152/71 99 06/09/22 13:30 78 14 154/71 99 06/09/22 13:20 79 22 154/71 99 06/09/22 13:10 79 12 148/69 99 06/09/22 13:00 59 H 155/73 99 06/09/22 12:50 30 H 172/84 99 06/09/22 12:40 76 14 172/84 99 06/09/22 12:30 80 13 172/84 99 06/09/22 12:20 80 9 L 172/84 06/09/22 12:10 83 6 L 100 06/09/22 12:04 30 06/09/22 12:02 98.5 F 85 14 99 06/09/22 12:00 30 Intake and Output 06/09/22 06/09/22 06/09/22 06:59 14:59 22:59 Intake Total 234 156 Output Total 550 100 Balance -316 56 Intake: IV 9 6 0.9 Pressure Bag 9 6 Intake, IV Titration 225 150 Amount Dextrose 5% in Water 1, 225 150 000 ml @ 75 mls/hr IV . [id number] [facility] Rx#:[id number] Output: Urine 550 100 Other: Weight 94.5 kg ABP, PAP, CO, CI - Last 8 Hours Arterial Blood Pressure 156/67 Arterial Blood Pressure 155/67 Arterial Blood Pressure 149/67 Arterial Blood Pressure 144/67 Arterial Blood Pressure 138/69 Arterial Blood Pressure 124/83 Arterial Blood Pressure 121/82 Arterial Blood Pressure 118/79 Arterial Blood Pressure 129/104 Arterial Blood Pressure 158/119 Arterial Blood Pressure 115/115 Arterial Blood Pressure 173/68 Arterial Blood Pressure 165/62 Arterial Blood Pressure 128/123 Arterial Blood Pressure 117/110 Arterial Blood Pressure 127/89 Arterial Blood Pressure 135/76 Arterial Blood Pressure 157/69 Arterial Blood Pressure 185/82 Arterial Blood Pressure 164/119 Patient is an elderly male, who is comatose, with GCS of 4(E1, V1, M2). Patient is comatose, intubated. Patient is not on any sedation for last 48 hours. On cranial nerve examination, pupils are very small, and the left pupil is slightly bigger than the right. Both are mildly reactive. Right eye is slightly deviated inwards and upwards. The left eye is in the primary position. Oculocephalics are absent. Corneals absent. Patient does have gag and cough. He is breathing occasionally over the ventilator. On muscle strength testing, patient has very minimal movement of the arms to painful stimuli, but not in the legs. Deep tendon reflexes are symmetric (right/left) very hypoactive in the lower, but has bilateral Babinski positive. Sensory to touch cannot be assessed, response to painful stimuli as above. Cerebellar function cannot be assessed. Tone is at least moderately increased bilaterally. Gait not able to be tested. On general examination, there is no carotid bruit or murmur, S1-S2 audible. Chest is clear on consultation. Abdomen is soft nontender. No organomegaly, bowel sounds present. Mild peripheral edema. Results - Laboratory Findings CBC and BMP: 06/10/22 04:45 06/10/22 04:45 Abnormal Lab Findings: Abnormal Labs 06/09/22 06/09/22 06/09/22 12:08 12:26 13:40 WBC 11.3 H RBC 4.20 L Hgb 12.4 L Hct 37.0 L Neutrophils # 9.0 H ABG pO2 143 H ABG Total CO2 26 H ABG O2 Saturation 100.0 H Sodium Chloride BUN Creatinine Glucose POC Glucose (mg/dL) 129 H Calcium Troponin I Total Protein Albumin 06/09/22 06/09/22 13:40 13:40 WBC RBC Hgb Hct Neutrophils # ABG pO2 ABG Total CO2 ABG O2 Saturation Sodium 150 H Chloride 117 H BUN 65 H Creatinine 2.65 H Glucose 160 H POC Glucose (mg/dL) Calcium 8.0 L Troponin I 0.043 H* Total Protein 5.4 L Albumin 2.9 L Assessment and Plan Assessment: * Status post cardiac arrest, with unclear downtime. Patient at present comatose with GCS of 4. * Hypertension * Diabetes2 * History of recurrent falls in the last 1 year. Plan: * EEG was performed today. This is an abnormal EEG due to background slowing of at least moderate to severe degree. This is suggestive of generalized cerebral dysfunction as can be seen with toxic metabolic encephalopathy or related to diffuse structural brain abnormality. Clinical correlation is recommended. No obvious epileptiform activity was seen. * Patient currently on Keppra 500 mg every 12 hours, which can be continued for now. * CT head from 06/08/2022 was reviewed, which showed no acute process, no cerebral edema. * Patient on day 4, is comatose (not on any sedatives), which makes prognosis not very favorable. However we will continue to follow clinically. * Discussed with the nursing staff in detail as well as patient's family members. Thank you for the consult.
--- NOTE | 2022-06-10 08:31 | XR ---
EXAMINATION TYPE: XR chest 1V portable DATE OF EXAM: 06/10/2022 COMPARISON: 06/09/2022 HISTORY: Shortness of breath TECHNIQUE: Single frontal view of the chest is obtained. FINDINGS: ET tube and NG tube and central stable. Normal. No overt failure or pneumothorax. Elevated right hemidiaphragm with subsegmental atelectasis or pneumonia. Atherosclerotic change aorta. IMPRESSION: Elevated right hemidiaphragm with linear subsegmental changes more typical of atelectasi s correlate clinically.
--- NOTE | 2022-06-10 10:27 | P.PN ---
Subjective Progress Note Date: 06/10/22 Principal diagnosis: Pneumonia Patient is a 71-year male initially presented to [facility] episode of unresponsive cardiac arrest s/p resuscitation intubation and the patient did have evidence of pneumonia sputum was positive for Klebsiella blood culture with staph epi likely contaminant subsequently transferred to [facility] for EEG and neuro evaluation. On today's evaluation that is 06/10/2022 the patient is afebrile, the patient remains to be intubated on the vent FiO2 is currently at 25% patient is hemodynamically stable not requiring any pressor support patient been tolerating his tube feeds no diarrhea has been reported by the nursing staff Objective - Vital Signs Vital signs: Vital Signs Temp 98.4 F 06/10/22 08:00 Pulse 79 06/10/22 10:00 Resp 18 06/10/22 10:00 BP 136/59 06/10/22 10:00 Pulse Ox 98 06/10/22 10:00 FiO2 25 06/10/22 10:00 Intake & Output 06/09/22 06/10/22 06/10/22 18:59 06:59 18:59 Intake Total 471 1436.000 352.4 Output Total 850 850 185 Balance -379 586.000 167.4 Weight 94.5 kg 95.4 kg Intake: IV 471 936 312 0.9 Pressure Bag 21 36 12 Dextrose 5% in Water 1, 450 900 300 000 ml @ 75 mls/hr IV . [id number] [facility] Rx#:[id number] Intake, IV Titration 250.000 20.4 Amount Clevidipine Butyrate 25 50.000 20.4 mg In Empty Bag 1 bag @ 1 MG/HR 2 mls/hr IV .Q24H [facility] Rx#:[id number] Piperacillin-Tazobactam 3 100 .375 gm In Sodium Chloride 0.9% 100 ml @ 25 mls/hr IVPB Q8HR [facility] Rx# :[id number] levETIRAcetam IV 500 mg 100 In Sodium Chloride 0.9% 100 ml @ 400 mls/hr IVPB Q12HR [facility] Rx#:[id number] Tube Feeding 160 20 Other 90 Output: Urine 850 850 185 Other: Voiding Method Indwelling Catheter Indwelling Catheter ABP, PAP, CO, CI - Last Documented Arterial Blood Pressure 151/46 - Exam GENERAL DESCRIPTION: Elderly male intubated on the vent. LUNGS: Unlabored breathing. Decreased breath sound at the base HEART: S1, S2, regular rate and rhythm. No loud murmur ABDOMEN: Soft, no tenderness , guarding or rigidity, no organomegaly EXTREMITIES: No edema of feet. - Labs CBC & Chem 7: 06/10/22 04:45 06/10/22 04:45 Labs: Abnormal Lab Results - Last 24 Hours (Table) 06/09/22 06/09/22 06/09/22 Range/Units 12:08 12:26 13:40 WBC 11.3 H (3.8-10.6) k/uL RBC 4.20 L (4.30-5.90) m/uL Hgb 12.4 L (13.0-17.5) gm/dL Hct 37.0 L (39.0-53.0) % Neutrophils # 9.0 H (1.3-7.7) k/uL ABG pCO2 (35-45) mmHg ABG pO2 143 H (83-108) mmHg ABG Total CO2 26 H (19-24) mmol/L ABG O2 Saturation 100.0 H (94-97) % Sodium (137-145) mmol/L Chloride (98-107) mmol/L Carbon Dioxide (22-30) mmol/L BUN (9-20) mg/dL Creatinine (0.66-1.25) mg/dL Glucose (74-99) mg/dL POC Glucose (mg/dL) 129 H (70-110) mg/dL Calcium (8.4-10.2) mg/dL Troponin I (0.000-0.034) ng/mL Total Protein (6.3-8.2) g/dL Albumin (3.5-5.0) g/dL 06/09/22 06/09/22 06/09/22 Range/Units 13:40 13:40 16:42 WBC (3.8-10.6) k/uL RBC (4.30-5.90) m/uL Hgb (13.0-17.5) gm/dL Hct (39.0-53.0) % Neutrophils # (1.3-7.7) k/uL ABG pCO2 (35-45) mmHg ABG pO2 (83-108) mmHg ABG Total CO2 (19-24) mmol/L ABG O2 Saturation (94-97) % Sodium 150 H (137-145) mmol/L Chloride 117 H (98-107) mmol/L Carbon Dioxide (22-30) mmol/L BUN 65 H (9-20) mg/dL Creatinine 2.65 H (0.66-1.25) mg/dL Glucose 160 H (74-99) mg/dL POC Glucose (mg/dL) 193 H (70-110) mg/dL Calcium 8.0 L (8.4-10.2) mg/dL Troponin I 0.043 H* (0.000-0.034) ng/mL Total Protein 5.4 L (6.3-8.2) g/dL Albumin 2.9 L (3.5-5.0) g/dL 06/10/22 06/10/22 06/10/22 Range/Units 00:03 04:45 04:45 WBC (3.8-10.6) k/uL RBC 3.87 L (4.30-5.90) m/uL Hgb 11.8 L (13.0-17.5) gm/dL Hct 34.9 L (39.0-53.0) % Neutrophils # 8.6 H (1.3-7.7) k/uL ABG pCO2 (35-45) mmHg ABG pO2 (83-108) mmHg ABG Total CO2 (19-24) mmol/L ABG O2 Saturation (94-97) % Sodium (137-145) mmol/L Chloride 117 H (98-107) mmol/L Carbon Dioxide 21 L (22-30) mmol/L BUN 62 H (9-20) mg/dL Creatinine 2.59 H (0.66-1.25) mg/dL Glucose 309 H (74-99) mg/dL POC Glucose (mg/dL) 277 H (70-110) mg/dL Calcium 7.1 L (8.4-10.2) mg/dL Troponin I (0.000-0.034) ng/mL Total Protein 4.8 L (6.3-8.2) g/dL Albumin 2.6 L (3.5-5.0) g/dL 06/10/22 06/10/22 Range/Units 05:32 06:07 WBC (3.8-10.6) k/uL RBC (4.30-5.90) m/uL Hgb (13.0-17.5) gm/dL Hct (39.0-53.0) % Neutrophils # (1.3-7.7) k/uL ABG pCO2 34 L (35-45) mmHg ABG pO2 157 H (83-108) mmHg ABG Total CO2 (19-24) mmol/L ABG O2 Saturation 99.8 H (94-97) % Sodium (137-145) mmol/L Chloride (98-107) mmol/L Carbon Dioxide (22-30) mmol/L BUN (9-20) mg/dL Creatinine (0.66-1.25) mg/dL Glucose (74-99) mg/dL POC Glucose (mg/dL) 345 H (70-110) mg/dL Calcium (8.4-10.2) mg/dL Troponin I (0.000-0.034) ng/mL Total Protein (6.3-8.2) g/dL Albumin (3.5-5.0) g/dL Assessment and Plan (1) Aspiration pneumonia Current Visit: Yes Status: Acute Code(s): J69.0 - PNEUMONITIS DUE TO INHALATION OF FOOD AND VOMIT SNOMED Code(s): 751579208 Plan: 1patient with acute respiratory failure which is multifactorial in this patient with initial presentation with unresponsiveness/cardiac arrest and concerning for aspiration pneumonia sputum were positive for Klebsiella patient is covered with Zosyn will be continued and will monitor clinical course closely Time with Patient: Less than 30
[2022-06-10] MEDS ORDERED: SODIUM CHLORIDE 0.9% 1,000 ML IV SCH (11:15)
[2022-06-10] MEDS: SODIUM CHLORIDE 0.45% 1,000 ML IV SCH (11:41)
[2022-06-10 12:10] LABS: Glucose,Whole Blood 340 mg/dL (70-110)
[2022-06-10] MEDS ORDERED: DEXTROSE 50% SYRINGE 50 ML IVP PRN ×2 (12:28)
[2022-06-10] MEDS: INSULIN REGULAR 100 UNIT in SODIUM CHLORIDE 0.9% 100 ML IV SCH (13:46)
[2022-06-10 13:48] LABS: Glucose,Whole Blood 337 mg/dL (70-110)
[2022-06-10] MEDS: METOPROLOL TARTRATE 50 MG TAB PO SCH ×2 (13:57→20:32)
--- NOTE | 2022-06-10 14:09 | P.PN ---
Subjective Progress Note Date: 06/10/22 Patient was seen for a follow-up. Patient was seen at 12:15 PM. Patient is off sedation since 06/06/2022. No clinical improvement noticed so far. Per nursing report, he was slightly opening his eyes spontaneously yesterday but not anymore. No movement of his upper or lower extremities. Please refer to examination below. Objective - Vital Signs Vital signs: Vital Signs Temp 98.5 F 06/10/22 12:00 Pulse 88 06/10/22 12:00 Resp 16 06/10/22 11:00 BP 144/65 06/10/22 12:00 Pulse Ox 96 06/10/22 12:00 FiO2 25 06/10/22 12:00 Intake & Output 06/09/22 06/10/22 06/10/22 18:59 06:59 18:59 Intake Total 471 1436.000 552.4 Output Total 850 850 300 Balance -379 586.000 252.4 Weight 94.5 kg 95.4 kg Intake: IV 471 936 393 0.9 Pressure Bag 21 36 18 Dextrose 5% in Water 1, 450 900 375 000 ml @ 75 mls/hr IV . [id number] [facility] Rx#:[id number] Intake, IV Titration 250.000 139.4 Amount Clevidipine Butyrate 25 50.000 69.4 mg In Empty Bag 1 bag @ 1 MG/HR 2 mls/hr IV .Q24H [facility] Rx#:[id number] Piperacillin-Tazobactam 3 100 .375 gm In Sodium Chloride 0.9% 100 ml @ 25 mls/hr IVPB Q8HR [facility] Rx# :[id number] Sodium Chloride 0.45% 1, 70 000 ml @ 70 mls/hr IV . [id number] [facility] Rx#:[id number] levETIRAcetam IV 500 mg 100 In Sodium Chloride 0.9% 100 ml @ 400 mls/hr IVPB Q12HR [facility] Rx#:[id number] Tube Feeding 160 20 Other 90 Output: Urine 850 850 300 Other: Voiding Method Indwelling Catheter Indwelling Catheter Indwelling Catheter ABP, PAP, CO, CI - Last Documented Arterial Blood Pressure 147/61 - Exam Patient is an elderly male, who is comatose, with GCS of 4(E1, V1, M2). Patient is comatose, intubated. Patient is not on any sedation for last 48 hours. On cranial nerve examination, pupils are very small, and the left pupil is slightly bigger than the right. Both are mildly reactive. On today's exam, the left eye is slightly deviated inwards. The right eye is in the primary pos ition. Oculocephalics are present. Corneals present. Patient does have gag and cough. He is breathing at 25/m, when the ventilator was set at 4/m. On muscle strength testing, patient has very withdrawal movement of the arms to painful stimuli, with some facial grimacing, but not in the legs. Deep tendon reflexes are symmetric (right/left) very hypoactive in the lower, plantar is up on the right, flat on the left. Sensory to touch cannot be assessed, response to painful stimuli as above. Cerebellar function cannot be assessed. Tone is at least moderately increased bilaterally. Gait not able to be tested. On general examination, there is no carotid bruit or murmur, S1-S2 audible. Chest is clear on consultation. Abdomen is soft nontender. No organomegaly, bowel sounds present. Mild peripheral edema. - Labs CBC & Chem 7: 06/11/22 04:00 06/11/22 04:00 Labs: Abnormal Lab Results - Last 24 Hours (Table) 06/09/22 06/09/22 06/09/22 Range/Units 13:40 13:40 13:40 WBC 11.3 H (3.8-10.6) k/uL RBC 4.20 L (4.30-5.90) m/uL Hgb 12.4 L (13.0-17.5) gm/dL Hct 37.0 L (39.0-53.0) % Neutrophils # 9.0 H (1.3-7.7) k/uL ABG pCO2 (35-45) mmHg ABG pO2 (83-108) mmHg ABG O2 Saturation (94-97) % Sodium 150 H (137-145) mmol/L Chloride 117 H (98-107) mmol/L Carbon Dioxide (22-30) mmol/L BUN 65 H (9-20) mg/dL Creatinine 2.65 H (0.66-1.25) mg/dL Glucose 160 H (74-99) mg/dL POC Glucose (mg/dL) (70-110) mg/dL Calcium 8.0 L (8.4-10.2) mg/dL Troponin I 0.043 H* (0.000-0.034) ng/mL Total Protein 5.4 L (6.3-8.2) g/dL Albumin 2.9 L (3.5-5.0) g/dL 06/09/22 06/10/22 06/10/22 Range/Units 16:42 00:03 04:45 WBC (3.8-10.6) k/uL RBC 3.87 L (4.30-5.90) m/uL Hgb 11.8 L (13.0-17.5) gm/dL Hct 34.9 L (39.0-53.0) % Neutrophils # 8.6 H (1.3-7.7) k/uL ABG pCO2 (35-45) mmHg ABG pO2 (83-108) mmHg ABG O2 Saturation (94-97) % Sodium (137-145) mmol/L Chloride (98-107) mmol/L Carbon Dioxide (22-30) mmol/L BUN (9-20) mg/dL Creatinine (0.66-1.25) mg/dL Glucose (74-99) mg/dL POC Glucose (mg/dL) 193 H 277 H (70-110) mg/dL Calcium (8.4-10.2) mg/dL Troponin I (0.000-0.034) ng/mL Total Protein (6.3-8.2) g/dL Albumin (3.5-5.0) g/dL 06/10/22 06/10/22 06/10/22 Range/Units 04:45 05:32 06:07 WBC (3.8-10.6) k/uL RBC (4.30-5.90) m/uL Hgb (13.0-17.5) gm/dL Hct (39.0-53.0) % Neutrophils # (1.3-7.7) k/uL ABG pCO2 34 L (35-45) mmHg ABG pO2 157 H (83-108) mmHg ABG O2 Saturation 99.8 H (94-97) % Sodium (137-145) mmol/L Chloride 117 H (98-107) mmol/L Carbon Dioxide 21 L (22-30) mmol/L BUN 62 H (9-20) mg/dL Creatinine 2.59 H (0.66-1.25) mg/dL Glucose 309 H (74-99) mg/dL POC Glucose (mg/dL) 345 H (70-110) mg/dL Calcium 7.1 L (8.4-10.2) mg/dL Troponin I (0.000-0.034) ng/mL Total Protein 4.8 L (6.3-8.2) g/dL Albumin 2.6 L (3.5-5.0) g/dL 06/10/22 Range/Units 12:08 WBC (3.8-10.6) k/uL RBC (4.30-5.90) m/uL Hgb (13.0-17.5) gm/dL Hct (39.0-53.0) % Neutrophils # (1.3-7.7) k/uL ABG pCO2 (35-45) mmHg ABG pO2 (83-108) mmHg ABG O2 Saturation (94-97) % Sodium (137-145) mmol/L Chloride (98-107) mmol/L Carbon Dioxide (22-30) mmol/L BUN (9-20) mg/dL Creatinine (0.66-1.25) mg/dL Glucose (74-99) mg/dL POC Glucose (mg/dL) 340 H (70-110) mg/dL Calcium (8.4-10.2) mg/dL Troponin I (0.000-0.034) ng/mL Total Protein (6.3-8.2) g/dL Albumin (3.5-5.0) g/dL Assessment and Plan Assessment: * Status post cardiac arrest, with unclear downtime. Patient at present comatose with GCS of 4. * Probable anoxic encephalopathy. * Ventilator-dependent respiratory failure, on mechanical ventilation. * Hypertension * Diabetes2 * History of recurrent falls in the last 1 year. Plan: * Patient continues to be comatose, although examination is slightly better, as he has slight more withdrawal to painful stimuli in the arms, and improved corneals and oculocephalic reflex. * EEG on 06/09/2022 was an abnormal EEG due to background slowing of at least moderate to severe degree. This is suggestive of generalized cerebral dysfunction as can be seen with toxic metabolic encephalopathy or related to diffuse structural brain abnormality. Clinical correlation is recommended. No obvious epileptiform activity was seen. * Patient currently on Keppra 500 mg every 12 hours, which can be continued for now. * CT head from 06/08/2022 was reviewed, which showed no acute process, no ce rebral edema. * Patient on day 5, is comatose (not on any sedatives), which makes prognosis not very favorable. However we will continue to follow clinically. * Discussed with the nursing staff in detail. * Neurology will follow. I had a family meeting at 2:45 PM. Patient's nurse, and case supervisor were also present. I briefly examined the patient again and no changes compared to above earlier examination from today. Patient's , sister, patient's [id number] and her were present. Discussed about patient's current condition, and prognosis. Patient's had difficulty with understanding patient's clinical condition, prognosis, but finally did realize. She was very tearful. I spent 35 minutes in [id number] discussion with the patient's family, besides the time spent above in initial evaluation earlier this morning.
[2022-06-10 14:51] LABS: Glucose,Whole Blood 330 mg/dL (70-110)
[2022-06-10 15:49] LABS: Glucose,Whole Blood 304 mg/dL (70-110)
[2022-06-10 16:59] LABS: Glucose,Whole Blood 262 mg/dL (70-110)
[2022-06-10 18:08] LABS: Glucose,Whole Blood 208 mg/dL (70-110)
[2022-06-10 18:58] LABS: Glucose,Whole Blood 170 mg/dL (70-110)
[2022-06-10 20:46] LABS: Glucose,Whole Blood 119 mg/dL (70-110)
[2022-06-10 22:12] LABS: Glucose,Whole Blood 170 mg/dL (70-110)
[2022-06-10 23:11] LABS: Glucose,Whole Blood 183 mg/dL (70-110)
[2022-06-11] MEDS: IPRATROPIUM-ALBUTEROL 3 ML NEB INHALATION SCH ×7 (00:09→23:37)
[2022-06-11] MEDS: SODIUM CHLORIDE 0.45% 1,000 ML IV SCH ×2 (00:18→16:48)
[2022-06-11 00:22] LABS: Glucose,Whole Blood 186 mg/dL (70-110)
--- NOTE | 2022-06-11 01:13 | CONS ---
CONSULTATION REASON FOR CONSULT: Acute kidney injury. HISTORY OF PRESENT ILLNESS: The patient is a 71-year-old male who was admitted to [facility] with history of collapse. The patient was resuscitated and intubated, however, it appears that it was difficult intubation and initially unsuccessful. The patient was subsequently intubated and admitted to the ICU. He had significant hypotension causing acute tubular necrosis and hypernatremia. Renal function had started to improve and serum sodium had also decreased with D5W. The patient was transferred to [facility] for further evaluation of neurological status as he did not show any improvement in mentation after discontinuation of all sedation. There were no acute findings noted on the CAT scan. The patient currently is in the ICU. He is maintained on Cleviprex drip. EEG was done which did not show any evidence of ongoing seizures. PAST MEDICAL HISTORY: History of CVA, TIA, type 2 diabetes, and history of DVT. SOCIAL HISTORY: Negative for smoking, drug abuse or alcohol abuse. MEDICATIONS: Reviewed. PHYSICAL EXAMINATION: GENERAL: On examination today, patient is intubated. He is on the vent. FiO2 is at 25%. There are no significant responses noted. According to nursing staff, patient did have cough reflex. HEART: S1, S2. LUNGS: Bilateral breath sounds are heard. ABDOMEN: Soft and nontender. EXTREMITIES: Shows no evidence of edema. EMBEDDED SYSTEMS DEVELOPER EXAM: Shows patient is unresponsive. LABORATORY DATA: Labs from today show sodium of 145, potassium 3.8, chloride 117, CO2 is 21, BUN 62, serum creatinine 2.59, hemoglobin of 11.8 g/dL. ASSESSMENT: 1. Acute kidney injury, acute tubular necrosis, currently improving. I will continue with IV hydration. 2. Hypernatremia associated with free water deficit, maintained on free water down the feeding tube as well as D5W. Blood sugars were running high, therefore D5W has been discontinued. Sodium has decreased and I will change the IV fluids to half- normal saline. 3. Encephalopathy, most likely anoxic encephalopathy. 4. Acute hypoxic respiratory failure. 5. Possible pneumonia, maintained on antibiotics. 6. Urinary tract infection with urine culture growing Enterococcus species. PLAN: 1. Add half-normal saline. 2. Increase free water to 200 mL q.6 hours. 3. Repeat labs in a.m. 4. Avoid nephrotoxic agents. Thank you for the consultation. We will continue to follow the patient with you during his hospitalization. MMSKYLERL / IJN: [id number] /
[2022-06-11] MEDS ORDERED: LIDOCAINE 2% (PF) 20 MG/ML 5 ML VIAL INHALATION ONE (01:37)
[2022-06-11 01:45] LABS: Glucose,Whole Blood 173 mg/dL (70-110)
--- NOTE | 2022-06-11 02:03 | XR ---
EXAMINATION TYPE: XR chest 1V portable DATE OF EXAM: 06/11/2022 COMPARISON: Yesterday HISTORY: Respiratory failure TECHNIQUE: Single view FINDINGS: Endotracheal tube is 4 cm from the sathya. Heart size is normal. There is nasogastric tube in the stomach. Lungs are clear of infiltrate. There are chest leads. Costophrenic angles are clear. There is left subclavian catheter with tip in the superior vena cava. IMPRESSION: No cardiopulmonary disease. Tubing in good position. No change compared to yesterday.
[2022-06-11 02:50] LABS: Glucose,Whole Blood 151 mg/dL (70-110)
[2022-06-11] MEDS: CLEVIDIPINE BUTYRATE 25 MG in EMPTY BAG 1 BAG IV SCH ×6 (03:47→23:16)
[2022-06-11 04:25] LABS: Glucose,Whole Blood 123 mg/dL (70-110)
--- NOTE | 2022-06-11 04:28 | PN ---
PROGRESS NOTE HISTORY OF PRESENT ILLNESS: This is a 71-year-old gentleman who was admitted with a prolonged cardiorespiratory arrest and possibly anoxic brain injury, is being closely monitored at this time. The patient also had possibly aspiration pneumonia and sepsis. Sputum culture showing Klebsiella. Chest x-ray showed no significant abnormality. EEG showed significant diffuse slowing. Neurology and multiple consult following the patient closely. PAST MEDICAL HISTORY: Reviewed. REVIEW OF SYSTEMS: Could not be taken. CURRENT MEDICATIONS: Reviewed include Zosyn, dose and rest of medication noted. PHYSICAL EXAMINATION: VITAL SIGNS: Pulse is 88, blood pressure 140/60, respiration 20, temperature 98.5, pulse ox noted. Vent settings are noted. HEENT: Conjunctivae normal. NECK: No jugular venous distention. CARDIOVASCULAR: S1, S2 muffled. RESPIRATION: Breath sounds diminished at the bases. Scattered rhonchi and crackles. ABDOMEN: Soft, nontender. LEGS: No edema. No cyanosis. NERVOUS SYSTEM: The patient is on mechanical ventilation. The patient's blood sugar is elevated. Insulin drip is being initiated. ASSESSMENT: 1. Anoxic brain injury, possibly secondary to prolonged cardiorespiratory arrest. 2. Possible aspiration pneumonia and sepsis with Klebsiella oxytoca and acute hypoxic respiratory failure, on mechanical ventilation. 3. Diabetes mellitus, type 2 uncontrolled, on IV insulin drip. 4. Acute urinary tract infection. 5. Hypertension. 6. History of cerebrovascular accident. 7. History of deep venous thrombosis. RECOMMENDATIONS AND DISCUSSION: I recommend to continue current medications, symptomatic treatment. Otherwise, continue the empiric antibiotics. EEG as noted. Blood gases stable. CT brain is being planned. Neurology is following the patient. They will follow the patient closely with pulmonology and further recommendations to follow. Overall prognosis is guarded. MMODL / IJN: [id number] /
[2022-06-11 04:48] LABS: Basophils % (A) 0 %; Eosinophils # (A) 0.5 k/uL (0-0.7); Eosinophils % (A) 4 %; HCT 34.1 % (39.0-53.0); HGB 11.3 gm/dL (13.0-17.5); Lymphocytes # (A) 1.6 k/uL (1.0-4.8); Lymphocytes % (A) 12 %; MCH 29.6 pg (25.0-35.0); MCHC 33.3 g/dL (31.0-37.0); Mean Platelet Volume 8.8; Monocytes # (A) 0.9 k/uL (0-1.0); Monocytes % (A) 7 %; Neutrophils % (A) 76 %; Platelet Count 206 k/uL (150-450); RBC 3.83 m/uL (4.30-5.90); RDW 14.5 % (11.5-15.5); WBC 13.1 k/uL (3.8-10.6)
[2022-06-11 05:09] LABS: Calcium 7.7 mg/dL (8.4-10.2); Potassium 3.7 mmol/L (3.5-5.1)
[2022-06-11 05:44] LABS: Glucose,Whole Blood 127 mg/dL (70-110)
[2022-06-11 06:45] LABS: ABG Base Excess -2.9 mmol/L; ABG HCO3 22 mmol/L (21-25); ABG Oxygen Saturation 99.7 % (94-97); ABG PCO2 33 mmHg (35-45); ABG PH 7.42 (7.35-7.45); ABG PO2 130 mmHg (83-108); ABG TCO2 23 mmol/L (19-24)
[2022-06-11 06:46] LABS: Allen Test Performed? No
[2022-06-11 06:48] LABS: Glucose,Whole Blood 165 mg/dL (70-110)
[2022-06-11] MEDS ORDERED: Potassium Replacement Protocol 1 EACH MISC MISCELLANE PRN (06:48)
[2022-06-11] MEDS ORDERED: POTASSIUM BICARBONATE/CIT AC 20 MEQ TABLET.EFF NG-TUBE SCH (08:00)
[2022-06-11 08:34] LABS: Glucose,Whole Blood 229 mg/dL (70-110)
[2022-06-11] MEDS: INSULIN REGULAR 100 UNIT in SODIUM CHLORIDE 0.9% 100 ML IV SCH (08:38)
[2022-06-11] MEDS: PIPERACILLIN-TAZOBACTAM 3.375 GM in SODIUM CHLORIDE 0.9% 100 ML IVPB SCH ×2 (08:46→16:47)
--- NOTE | 2022-06-11 08:54 | PN ---
PROGRESS NOTE SUBJECTIVE: This gentleman had a cardiac arrest apparently witnessed and was in [facility], transferred here by Dr. Tomlinson. The patient is in a sinus rhythm today. He is hemodynamically stable, actually hypertensive on a Cleviprex drip. Mentally, we do not know what EEG has shown, appears to have some activity but definitely there is some evidence of some anoxic injury. However, cardiac sarmiento he is stable and maintaining sinus rhythm. I do not believe we are dealing with any acute ischemic syndrome type picture and LV function is actually well preserved based on echo from [facility]. OBJECTIVE: VITALS: Stable. HEART: S1, S2 heard normally. LUNGS: Reveal ventilator-associated breath sounds. ABDOMEN: Exam unchanged. EXTREMITIES: Lower extremity exam unchanged. PLAN: To continue current medications. I have no new specific suggestions. He is on a Cleviprex drip, blood pressure is in the 150 range systolic. Prognosis remains guarded. I would defer to Neurology for a repeat EEG and consider any anoxic injury to the brain. Prognosis remains poor. MMODL / IJN: [id number] /
[2022-06-11] MEDS: FOLIC ACID 1 MG TAB PO SCH (09:15)
[2022-06-11] MEDS: METOPROLOL TARTRATE 50 MG TAB PO SCH ×2 (09:15→21:33)
[2022-06-11] MEDS: CHLORHEXIDINE GLUCONATE 15 ML CUP MUCOUS MEM SCH ×2 (09:15→21:33)
[2022-06-11] MEDS: PANTOPRAZOLE 40 MG/10 ML VIAL IV SCH (09:15)
[2022-06-11] MEDS: ATORVASTATIN 40 MG TAB PO SCH (09:15)
[2022-06-11] MEDS: amLODIPine 10 MG TAB PO SCH (09:15)
[2022-06-11] MEDS: ENOXAPARIN 30 MG/0.3 ML SYRINGE SQ SCH (09:15)
[2022-06-11] MEDS: levETIRAcetam IV 500 MG in SODIUM CHLORIDE 0.9% 100 ML IVPB SCH ×2 (09:15→21:32)
[2022-06-11 09:39] LABS: Glucose,Whole Blood 249 mg/dL (70-110)
--- NOTE | 2022-06-11 10:06 | P.PN ---
Subjective Progress Note Date: 06/11/22 Principal diagnosis: Respiratory failure. 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 On 06/05/2022 patient was a witnessed collapse at home per his family. The exact details of resuscitation efforts, total downtime is unknown to us from the available documentation sent over from [facility], however there is a mention that patient had multiple unsuccessful intubation attempts per EMS related to a edematous upper airways. He was intubated by ER physician upon arrival to the [facility] emergency department. Per the nursing staff the reports starting CPR, and when EMS arrived the monitor showed sinus tachycardia. ACLS interventions are not known to us other than intubation attempts. Patient has history of multiple comorbid conditions including CVA, hypertension, poorly controlled diabetes mellitus type 2, previous history of DVT on Xarelto. Computed tomography scan of the brain showed no evidence for acute intracranial hemorrhage, no acute infarct, mass, mass effect or midline shift. There was mild white matter hypodensity relating to chronic small vessel ischemic disease. chest x-ray showed evidence of scattered septal opacities throughout the lungs possibly related to pulmonary edema. Patient was started on empiric antibiotics. He was started on IV Decadron related to upper airway edema. Computed tomography scan of the neck was reportedly negative. Patient's urine culture was reported to be positive for enterococci, and his sputum was positive for Klebsiella species. We'll try to obtain further information. Initial laboratory evaluation showed white blood cell count of 16.7, hemoglobin of 13.2, platelet count is 245, sodium is 137, potassium is 5.4, chloride is 100, CO2 is 21.8, BUN is 47, creatinine is 3.0, glucose was 408, calcium is 8.5, magnesium is 1.9, AST was 39, ALT was 26, alk phos was 71, total bilirubin was 1.2, INR was 1.07, urinalysis showed 2+ glucose, 1+ ketones, 3+ blood, 1+ leukocyte esterase, greater than 25 white blood cells, first set of troponins was less than 0.020, hemoglobin A1c was 9.1, TSH was 3.072. His antibiotic coverage was switched to Zosyn, renal ultrasound shows no hydronephrosis bilaterally. Follow-up computed tomography scan of the brain yesterday on 06/08/2022 showed no acute intracranial hemorrhage or midline shift, mild to moderate diffuse ventricular and sulcal prominence consistent with diffuse age-related cerebral atrophy, moderate low attenuation in the periventricular white matter consistent with chronic small vessel ischemic change, and near complete opacification of the right sphenoid sinus which was nonspecific. Patient has not been on any sedation, he remains intubated, according to the nursing staff patient was given a spontaneous breathing trial yesterday. He is comatose after being 2 days off sedation, he is withdrawing to pain, he is on assist-control mode of ventilation right now, he was transferred to the [facility] intensive care unit for neurology evaluation and treatment for possibility of anoxic brain injury. He was started on Keppra, stat EEG is pending. On arrival patient is on assist-control mode with a rate of 10, tidal volume is 500, FiO2 of 30% and PEEP of 5. He is on D5 W at a rate of 75 ML per hour for hyponatremia with a sodium of 153, no other drips. His propofol has been off for over 48 hours. No other sedatives, narcotics or hypnotics were given during that time. Blood gas was obtained on those settings showing pO2 of 143, pCO2 of 37, and pH of 7.44 and this was done on FiO2 of 30%. The rest of the blood work is pending at this time Progress note dated 06/10/2022. This patient was transferred from [facility] yesterday, to our intensive care unit. The patient was poorly responsive/unresponsive, and there was some concern about anoxic brain injury. The patient did have a cardiopulmonary arrest. Unfortunately, the patient was not waking up over there, and because it did not have neurology coverage see her, the patient was transferred here, by my partner. He was intubated on June 05. Currently, he remains on mechanical ventilator. Yesterday, we saw him when he came over and placed a left radial art line. He really had a central line. Neurology was consulted. EEG showed diffuse slowing. Norvasc was initiated today. Ventilator settings include the volume assist control, rate 16, tidal volume 500, FiO2 30%, and PEEP of 5. Blood gases show pO2 157, pCO2 34, pH is 7.42. The FiO2 was reduced down to 25%. The patient's getting D5W at 75 mL an hour, Cleveprex at 12 mg an hour, saline at 20 mL an hour, and vital high protein at 20 mL an hour, with a goal of 53. Labs today include a white count 10.6, hemoglobin 11.8, hematocrit 34.9, and platelet count 290,000. Sodium 145, potassium 3.8, chlorides 117, CO2 21, BUN 62, creatinine 2.59. Albumin is 2.6. Chest x-ray looks surprisingly normal, with a mildly elevated right diaphragm. The report from the outside hospital was sent the urine was positive for enterococci his sputum was positive for Klebsiella. Progress note dated 06/11/2022. This is a 71-year-old male transferred from [facility] because of cardiac arrest. The patient likely sustained significant anoxic brain injury. The patient is now a DO NOT RESUSCITATE patient. The family is apparently considering comfort measures. He was intubated on June 05. Remains on mechanical ventilator. He is on volume assist control, rate 16, tidal volume 500, FiO2 25%, and PEEP of 5. Arterial blood gases show pO2 130, pCO2 of 33, and pH is 7.42. The FiO2 was reduced down to 21%. Currently, the patient is on half-normal saline at 70 mL an hour, Cleveprex at 5 mg an hour, and insulin drip at 3.6 units an hour. His mental status has not improved. EEG showed diffuse slowing, consistent with encephalopathy. Labs today show white count of 13.1, hemoglobin 11.3, hematocrit 34.1, and platelet count of 206,000. Sodium 146, potassium 3.7, chlorides 1:15, CO2 20, BUN 73, creatinine 3.01. Chest x-ray is stable, and is currently on Zosyn for a urine that was positive for enterococci and sputum, which was positive for Klebsiella. Objective - Vital Signs Vital signs: Vital Signs Temp 98.6 F 06/11/22 08:00 Pulse 86 06/11/22 09:00 Resp 20 06/11/22 09:00 BP 138/57 06/11/22 09:00 Pulse Ox 99 06/11/22 09:00 FiO2 21 06/11/22 09:26 Intake & Output 08/24/22 08/25/22 08/25/22 18:59 06:59 18:59 Intake Total 4292.688 5620.659 169.58 Output Total 595 595 45 Balance 067.106 7905.659 124.58 Weight 101.6 kg Intake: IV 411 809 73 0.9 Pressure Bag 36 39 3 Dextrose 5% in Water 1, 375 420 000 ml @ 75 mls/hr IV . [id number] [facility] Rx#:[id number] Sodium Chloride 0.45% 1, 350 70 000 ml @ 70 mls/hr IV . [id number] [facility] Rx#:[id number] Intake, IV Titration 641.141 184.659 43.58 Amount Clevidipine Butyrate 25 116.600 49.2 39.8 mg In Empty Bag 1 bag @ 1 MG/HR 2 mls/hr IV .Q24H [facility] Rx#:[id number] Insulin Regular 100 unit 34.541 65.459 3.78 In Sodium Chloride 0.9% 100 ml @ Titrate IV .Q0M [facility] Rx#:[id number] Sodium Chloride 0.45% 1, 490 70 000 ml @ 70 mls/hr IV . [id number] [facility] Rx#:[id number] Tube Feeding 20 558 53 Other 400 Output: Urine 595 595 45 Other: Voiding Method Indwelling Catheter Indwelling Catheter ABP, PAP, CO, CI - Last Documented Arterial Blood Pressure 162/53 - Exam No acute distress, not on any sedation, and only responsive to deep pain. No gag reflex. Pupils sluggishly reactive. HEENT examination is grossly unremarkable. Oral endotracheal tube noted. Neck supple. Full range of motion. No adenopathy thyromegaly or neck vein dis tention. Cardiovascular examination reveals regular rhythm rate. S1-S2 normal. No S3 or S4. No discernible murmur noted. Heart rate 86 bpm. Lungs reveal mostly clear breath sounds. Minimal scattered rhonchi. No wheezes or crackles. Saturations 99%. Abdomen soft with bowel sounds. No masses. Extremities are intact. No cyanosis clubbing or edema. Skin reveals some bilateral lower extremity chronic venous changes. Neurologic examination is is unchanged. - Labs CBC & Chem 7: 06/11/22 04:00 06/11/22 04:00 Labs: Abnormal Lab Results - Last 24 Hours (Table) 06/10/22 06/10/22 06/10/22 Range/Units 04:45 12:08 13:46 WBC (3.8-10.6) k/uL RBC (4.30-5.90) m/uL Hgb (13.0-17.5) gm/dL Hct (39.0-53.0) % Neutrophils # (1.3-7.7) k/uL ABG pCO2 (35-45) mmHg ABG pO2 (83-108) mmHg ABG O2 Saturation (94-97) % Sodium (137-145) mmol/L Chloride (98-107) mmol/L Carbon Dioxide (22-30) mmol/L BUN (9-20) mg/dL Creatinine (0.66-1.25) mg/dL Glucose (74-99) mg/dL POC Glucose (mg/dL) 340 H 337 H (70-110) mg/dL Hemoglobin A1c 7.2 H (0.0-6.0) % Calcium (8.4-10.2) mg/dL 06/10/22 06/10/22 06/10/22 Range/Units 14:50 15:47 16:57 WBC (3.8-10.6) k/uL RBC (4.30-5.90) m/uL Hgb (13.0-17.5) gm/dL Hct (39.0-53.0) % Neutrophils # (1.3-7.7) k/uL ABG pCO2 (35-45) mmHg ABG pO2 (83-108) mmHg ABG O2 Saturation (94-97) % Sodium (137-145) mmol/L Chloride (98-107) mmol/L Carbon Dioxide (22-30) mmol/L BUN (9-20) mg/dL Creatinine (0.66-1.25) mg/dL Glucose (74-99) mg/dL POC Glucose (mg/dL) 330 H 304 H 262 H (70-110) mg/dL Hemoglobin A1c (0.0-6.0) % Calcium (8.4-10.2) mg/dL 06/10/22 06/10/22 06/10/22 Range/Units 18:06 18:57 20:41 WBC (3.8-10.6) k/uL RBC (4.30-5.90) m/uL Hgb (13.0-17.5) gm/dL Hct (39.0-53.0) % Neutrophils # (1.3-7.7) k/uL ABG pCO2 (35-45) mmHg ABG pO2 (83-108) mmHg ABG O2 Saturation (94-97) % Sodium (137-145) mmol/L Chloride (98-107) mmol/L Carbon Dioxide (22-30) mmol/L BUN (9-20) mg/dL Creatinine (0.66-1.25) mg/dL Glucose (74-99) mg/dL POC Glucose (mg/dL) 208 H 170 H 119 H (70-110) mg/dL Hemoglobin A1c (0.0-6.0) % Calcium (8.4-10.2) mg/dL 06/10/22 06/10/22 06/11/22 Range/Units 22:10 23:10 00:20 WBC (3.8-10.6) k/uL RBC (4.30-5.90) m/uL Hgb (13.0-17.5) gm/dL Hct (39.0-53.0) % Neutrophils # (1.3-7.7) k/uL ABG pCO2 (35-45) mmHg ABG pO2 (83-108) mmHg ABG O2 Saturation (94-97) % Sodium (137-145) mmol/L Chloride (98-107) mmol/L Carbon Dioxide (22-30) mmol/L BUN (9-20) mg/dL Creatinine (0.66-1.25) mg/dL Glucose (74-99) mg/dL POC Glucose (mg/dL) 170 H 183 H 186 H (70-110) mg/dL Hemoglobin A1c (0.0-6.0) % Calcium (8.4-10.2) mg/dL 06/11/22 06/11/22 06/11/22 Range/Units 01:44 02:49 04:00 WBC 13.1 H (3.8-10.6) k/uL RBC 3.83 L (4.30-5.90) m/uL Hgb 11.3 L (13.0-17.5) gm/dL Hct 34.1 L (39.0-53.0) % Neutrophils # 10.0 H (1.3-7.7) k/uL ABG pCO2 (35-45) mmHg ABG pO2 (83-108) mmHg ABG O2 Saturation (94-97) % Sodium (137-145) mmol/L Chloride (98-107) mmol/L Carbon Dioxide (22-30) mmol/L BUN (9-20) mg/dL Creatinine (0.66-1.25) mg/dL Glucose (74-99) mg/dL POC Glucose (mg/dL) 173 H 151 H (70-110) mg/dL Hemoglobin A1c (0.0-6.0) % Calcium (8.4-10.2) mg/dL 06/11/22 06/11/22 06/11/22 Range/Units 04:00 04:23 05:43 WBC (3.8-10.6) k/uL RBC (4.30-5.90) m/uL Hgb (13.0-17.5) gm/dL Hct (39.0-53.0) % Neutrophils # (1.3-7.7) k/uL ABG pCO2 (35-45) mmHg ABG pO2 (83-108) mmHg ABG O2 Saturation (94-97) % Sodium 146 H (137-145) mmol/L Chloride 115 H (98-107) mmol/L Carbon Dioxide 20 L (22-30) mmol/L BUN 73 H (9-20) mg/dL Creatinine 3.01 H (0.66-1.25) mg/dL Glucose 107 H (74-99) mg/dL POC Glucose (mg/dL) 123 H 127 H (70-110) mg/dL Hemoglobin A1c (0.0-6.0) % Calcium 7.7 L (8.4-10.2) mg/dL 06/11/22 06/11/22 06/11/22 Range/Units 06:35 06:47 08:33 WBC (3.8-10.6) k/uL RBC (4.30-5.90) m/uL Hgb (13.0-17.5) gm/dL Hct (39.0-53.0) % Neutrophils # (1.3-7.7) k/uL ABG pCO2 33 L (35-45) mmHg ABG pO2 130 H (83-108) mmHg ABG O2 Saturation 99.7 H (94-97) % Sodium (137-145) mmol/L Chloride (98-107) mmol/L Carbon Dioxide (22-30) mmol/L BUN (9-20) mg/dL Creatinine (0.66-1.25) mg/dL Glucose (74-99) mg/dL POC Glucose (mg/dL) 165 H 229 H (70-110) mg/dL Hemoglobin A1c (0.0-6.0) % Calcium (8.4-10.2) mg/dL 06/11/22 Range/Units 09:37 WBC (3.8-10.6) k/uL RBC (4.30-5.90) m/uL Hgb (13.0-17.5) gm/dL Hct (39.0-53.0) % Neutrophils # (1.3-7.7) k/uL ABG pCO2 (35-45) mmHg ABG pO2 (83-108) mmHg ABG O2 Saturation (94-97) % Sodium (137-145) mmol/L Chloride (98-107) mmol/L Carbon Dioxide (22-30) mmol/L BUN (9-20) mg/dL Creatinine (0.66-1.25) mg/dL Glucose (74-99) mg/dL POC Glucose (mg/dL) 249 H (70-110) mg/dL Hemoglobin A1c (0.0-6.0) % Calcium (8.4-10.2) mg/dL Microbiology - Last 24 Hours (Table) 06/09/22 13:40 Blood Culture - Preliminary Blood No Growth after 24 hours 06/09/22 13:40 Blood Culture - Preliminary Blood No Growth after 24 hours Assessment and Plan Assessment: Acute anoxic brain injury related to acute cardiopulmonary arrest. Patient was admitted to [facility] on 06/05/2022 after suffering of witnessed collapse per his family, with initiation of CPR, difficult intubation out in the field due to upper airway edema. Primary cause of the cardiopulmonary arrest is unknown at this time, awaiting further records from the [facility]. Acute hypoxic respiratory failure possibly related to aspiration pneumonia and sepsis. Sputum cultures showed Klebsiella species. Acute urinary tract infection related to enterococcus species currently on Zosyn. Acute kidney injury. Poorly controlled diabetes mellitus type 2. Hypertension. Previous history of DVT. History of CVA Plan: Plan dated 06/10/2022. The patient is being nourished. We will increase tube feedings to goal. The FiO2 on the ventilator was reduced down to 25%. We will initiate Norvasc today, which she was taking at home, and weaning the Cleveprex. Sodium is much improved. Blood gases are stable. The patient is apparently scheduled for repeat computed tomography scan of the brain today. Neurology was consulted. EEG showed diffuse moderate to severe slowing. This is consistent with anoxic and/or metabolic encephalopathy. If the patient does not improve, consideration of tracheostomy and PEG tube placement will be discussed with family. Plan dated 06/11/2022. The patient is now a DO NOT RESUSCITATE. This is appropriate given the fact that he likely has significant anoxic brain injury, on his examination, and the EEG. The patient remains on Cleveprex for blood pressure control, and insulin for control of blood sugars. Today, his FiO2 was reduced down to 21%. His chest x-ray was normal. Labs, x-rays, and medications are reviewed. Prognosis is very poor. The family is apparently considering withdrawal from life support. No additional recommendations are made at this time. Time with Patient: Greater than 30
--- NOTE | 2022-06-11 10:30 | P.PN ---
Subjective Patient is seen for follow-up for acute kidney injury mostly ATN. Renal function had been improving however this morning serum creatinine is higher at 3.0 from 2.59 yesterday. Patient had an episode of A. fib with RVR which persisted throughout the whole day yesterday. Currently he is in normal sinus rhythm. No significant hypotension noted. No fever Urine output at 50-60 mL per hour. CODE STATUS changed to no code no CPR Objective - Vital Signs Vital signs: Vital Signs Temp 98.6 F 06/11/22 08:00 Pulse 86 06/11/22 09:00 Resp 20 06/11/22 09:00 BP 138/57 06/11/22 09:00 Pulse Ox 99 06/11/22 09:00 FiO2 21 06/11/22 09:26 Intake & Output 06/10/22 06/11/22 06/11/22 18:59 06:59 18:59 Intake Total 0174.374 6617.659 169.58 Output Total 595 595 45 Balance 108.601 2894.659 124.58 Weight 101.6 kg Intake: IV 411 809 73 0.9 Pressure Bag 36 39 3 Dextrose 5% in Water 1, 375 420 000 ml @ 75 mls/hr IV . [id number] [facility] Rx#:[id number] Sodium Chloride 0.45% 1, 350 70 000 ml @ 70 mls/hr IV . [id number] [facility] Rx#:[id number] Intake, IV Titration 641.141 184.659 43.58 Amount Clevidipine Butyrate 25 116.600 49.2 39.8 mg In Empty Bag 1 bag @ 1 MG/HR 2 mls/hr IV .Q24H [facility] Rx#:[id number] Insulin Regular 100 unit 34.541 65.459 3.78 In Sodium Chloride 0.9% 100 ml @ Titrate IV .Q0M [facility] Rx#:[id number] Sodium Chloride 0.45% 1, 490 70 000 ml @ 70 mls/hr IV . [id number] [facility] Rx#:[id number] Tube Feeding 20 558 53 Other 400 Output: Urine 595 595 45 Other: Voiding Method Indwelling Catheter Indwelling Catheter ABP, PAP, CO, CI - Last Documented Arterial Blood Pressure 162/53 - Exam Patient is intubated. He remains unresponsive He is currently on the vent Examination of the heart S1 and S2 Examination lungs bilateral breath sounds are heard Abdomen is soft nontender Examination lower extremity shows no significant edema - Labs CBC & Chem 7: 06/11/22 04:00 06/11/22 04:00 Labs: Abnormal Lab Results - Last 24 Hours (Table) 06/10/22 06/10/22 06/10/22 Range/Units 04:45 12:08 13:46 WBC (3.8-10.6) k/uL RBC (4.30-5.90) m/uL Hgb (13.0-17.5) gm/dL Hct (39.0-53.0) % Neutrophils # (1.3-7.7) k/uL ABG pCO2 (35-45) mmHg ABG pO2 (83-108) mmHg ABG O2 Saturation (94-97) % Sodium (137-145) mmol/L Chloride (98-107) mmol/L Carbon Dioxide (22-30) mmol/L BUN (9-20) mg/dL Creatinine (0.66-1.25) mg/dL Glucose (74-99) mg/dL POC Glucose (mg/dL) 340 H 337 H (70-110) mg/dL Hemoglobin A1c 7.2 H (0.0-6.0) % Calcium (8.4-10.2) mg/dL 06/10/22 06/10/22 06/10/22 Range/Units 14:50 15:47 16:57 WBC (3.8-10.6) k/uL RBC (4.30-5.90) m/uL Hgb (13.0-17.5) gm/dL Hct (39.0-53.0) % Neutrophils # (1.3-7.7) k/uL ABG pCO2 (35-45) mmHg ABG pO2 (83-108) mmHg ABG O2 Saturation (94-97) % Sodium (137-145) mmol/L Chloride (98-107) mmol/L Carbon Dioxide (22-30) mmol/L BUN (9-20) mg/dL Creatinine (0.66-1.25) mg/dL Glucose (74-99) mg/dL POC Glucose (mg/dL) 330 H 304 H 262 H (70-110) mg/dL Hemoglobin A1c (0.0-6.0) % Calcium (8.4-10.2) mg/dL 06/10/22 06/10/22 06/10/22 Range/Units 18:06 18:57 20:41 WBC (3.8-10.6) k/uL RBC (4.30-5.90) m/uL Hgb (13.0-17.5) gm/dL Hct (39.0-53.0) % Neutrophils # (1.3-7.7) k/uL ABG pCO2 (35-45) mmHg ABG pO2 (83-108) mmHg ABG O2 Saturation (94-97) % Sodium (137-145) mmol/L Chloride (98-107) mmol/L Carbon Dioxide (22-30) mmol/L BUN (9-20) mg/dL Creatinine (0.66-1.25) mg/dL Glucose (74-99) mg/dL POC Glucose (mg/dL) 208 H 170 H 119 H (70-110) mg/dL Hemoglobin A1c (0.0-6.0) % Calcium (8.4-10.2) mg/dL 06/10/22 06/10/22 06/11/22 Range/Units 22:10 23:10 00:20 WBC (3.8-10.6) k/uL RBC (4.30-5.90) m/uL Hgb (13.0-17.5) gm/dL Hct (39.0-53.0) % Neutrophils # (1.3-7.7) k/uL ABG pCO2 (35-45) mmHg ABG pO2 (83-108) mmHg ABG O2 Saturation (94-97) % Sodium (137-145) mmol/L Chloride (98-107) mmol/L Carbon Dioxide (22-30) mmol/L BUN (9-20) mg/dL Creatinine (0.66-1.25) mg/dL Glucose (74-99) mg/dL POC Glucose (mg/dL) 170 H 183 H 186 H (70-110) mg/dL Hemoglobin A1c (0.0-6.0) % Calcium (8.4-10.2) mg/dL 06/11/22 06/11/22 06/11/22 Range/Units 01:44 02:49 04:00 WBC 13.1 H (3.8-10.6) k/uL RBC 3.83 L (4.30-5.90) m/uL Hgb 11.3 L (13.0-17.5) gm/dL Hct 34.1 L (39.0-53.0) % Neutrophils # 10.0 H (1.3-7.7) k/uL ABG pCO2 (35-45) mmHg ABG pO2 (83-108) mmHg ABG O2 Saturation (94-97) % Sodium (137-145) mmol/L Chloride (98-107) mmol/L Carbon Dioxide (22-30) mmol/L BUN (9-20) mg/dL Creatinine (0.66-1.25) mg/dL Glucose (74-99) mg/dL POC Glucose (mg/dL) 173 H 151 H (70-110) mg/dL Hemoglobin A1c (0.0-6.0) % Calcium (8.4-10.2) mg/dL 06/11/22 06/11/22 06/11/22 Range/Units 04:00 04:23 05:43 WBC (3.8-10.6) k/uL RBC (4.30-5.90) m/uL Hgb (13.0-17.5) gm/dL Hct (39.0-53.0) % Neutrophils # (1.3-7.7) k/uL ABG pCO2 (35-45) mmHg ABG pO2 (83-108) mmHg ABG O2 Saturation (94-97) % Sodium 146 H (137-145) mmol/L Chloride 115 H (98-107) mmol/L Carbon Dioxide 20 L (22-30) mmol/L BUN 73 H (9-20) mg/dL Creatinine 3.01 H (0.66-1.25) mg/dL Glucose 107 H (74-99) mg/dL POC Glucose (mg/dL) 123 H 127 H (70-110) mg/dL Hemoglobin A1c (0.0-6.0) % Calcium 7.7 L (8.4-10.2) mg/dL 06/11/22 06/11/22 06/11/22 Range/Units 06:35 06:47 08:33 WBC (3.8-10.6) k/uL RBC (4.30-5.90) m/uL Hgb (13.0-17.5) gm/dL Hct (39.0-53.0) % Neutrophils # (1.3-7.7) k/uL ABG pCO2 33 L (35-45) mmHg ABG pO2 130 H (83-108) mmHg ABG O2 Saturation 99.7 H (94-97) % Sodium (137-145) mmol/L Chloride (98-107) mmol/L Carbon Dioxide (22-30) mmol/L BUN (9-20) mg/dL Creatinine (0.66-1.25) mg/dL Glucose (74-99) mg/dL POC Glucose (mg/dL) 165 H 229 H (70-110) mg/dL Hemoglobin A1c (0.0-6.0) % Calcium (8.4-10.2) mg/dL 06/11/22 Range/Units 09:37 WBC (3.8-10.6) k/uL RBC (4.30-5.90) m/uL Hgb (13.0-17.5) gm/dL Hct (39.0-53.0) % Neutrophils # (1.3-7.7) k/uL ABG pCO2 (35-45) mmHg ABG pO2 (83-108) mmHg ABG O2 Saturation (94-97) % Sodium (137-145) mmol/L Chloride (98-107) mmol/L Carbon Dioxide (22-30) mmol/L BUN (9-20) mg/dL Creatinine (0.66-1.25) mg/dL Glucose (74-99) mg/dL POC Glucose (mg/dL) 249 H (70-110) mg/dL Hemoglobin A1c (0.0-6.0) % Calcium (8.4-10.2) mg/dL Microbiology - Last 24 Hours (Table) 06/09/22 13:40 Blood Culture - Preliminary Blood No Growth after 24 hours 06/09/22 13:40 Blood Culture - Preliminary Blood No Growth after 24 hours Assessment and Plan Assessment: 1. Acute kidney injury ATN from sepsis and hypotension during his initial hospitalization at [facility]. Renal function had been improving however it is worse today most likely related to A. fib with RVR yesterday. Urine output is maintained. Patient was also restarted on IV fluids yesterday. 2. Hypernatremia associated with free water deficit status post D5W. Currently maintained on half normal saline. Free water down the feeding tube was also increased. 3. Encephalopathy most likely anoxic encephalopathy 4. Status post cardiac arrest 5. UTI with urine culture growing enterococcus species 6. Possible pneumonia Plan: Continue with half normal saline Increase free water to 200 mL every 4 hours Repeat labs in a.m.
[2022-06-11 10:57] LABS: Glucose,Whole Blood 247 mg/dL (70-110)
--- NOTE | 2022-06-11 11:04 | P.CRDCN ---
History of Present Illness History of present illness: This is Dr. Franklin dictating a consult on this patient The patient was interviewed and examined IMPRESSION / ASSESSMENT: Cardiorespiratory arrest, no documented ventricular fibrillation likely respiratory arrest History of CVA hypertension poorly controlled diabetes History of DVT on xarelto PLAN: So far there is evidence for brain injury and has been no recovery of neurologic function From a cardiac standpoint maintain blood pressure continue current medications Please call us following extubation if there is improvement in brain function for reassessment HPI Patient presented with a cardiorespiratory arrest and no evidence for ventricular fibrillation ROS: He was found Collapsed at home and was agonal EXAMINATION: Pulse rate in the 80s, blood pressure 100 3257 Breath sounds are reduced bilaterally when patient is on a ventilator Heart sounds S1 and S2 are soft REVIEW OF LABS, ECG & MEDICAL DATA White count 13,000, hemoglobin 11.3 Sodium 146 potassium 3.7 Borderline troponins 73 creatinine 3.0 Past Medical History Past Medical History: CVA/TIA, Diabetes Mellitus, Deep Vein Thrombosis (DVT) History of Any Multi-Drug Resistant Organisms: None Reported Past Surgical History: Heart Catheterization Additional Past Surgical History / Comment(s): No stenting with heart cath Past Anesthesia/Blood Transfusion Reactions: No Reported Reaction Smoking Status: Never smoker Medications and Allergies Home Medications Medication Instructions Recorded Confirmed Type Atorvastatin Calcium [Lipitor] 40 mg PO HS 06/09/22 06/09/22 History DULoxetine HCL [Cymbalta] 30 mg PO HS 06/09/22 06/09/22 History Folic Acid 1 mg PO DAILY 06/09/22 06/09/22 History Furosemide [Lasix] 20 mg PO DAILY PRN 06/09/22 06/09/22 History Insulin Aspart Prot/Insuln Asp 75 units SQ DIRECTED 06/09/22 06/09/22 History [Novolog Mix 70-30 Flexpen] Ketorolac 0.5% Ophth Soln [Acular 1 drop OPHTHALMIC QID 06/09/22 06/09/22 History 0.5%] Rivaroxaban [Xarelto] 20 mg PO DAILY 06/09/22 06/09/22 History amLODIPine [Norvasc] 10 mg PO DAILY 06/09/22 06/09/22 History lisinopriL [Zestril] 20 mg PO DAILY 06/09/22 06/09/22 History Allergies Allergy/AdvReac Type Severity Reaction Status Date / Time No Known Allergies Allergy Verified 06/09/22 11:06 Physical Exam Vitals: Vital Signs Temp Pulse Resp BP Pulse Ox FiO2 06/11/22 09:26 21 06/11/22 09:00 86 20 138/57 99 06/11/22 08:32 82 06/11/22 08:14 82 06/11/22 08:00 98.6 F 76 16 138/56 99 25 06/11/22 07:13 25 06/11/22 07:00 75 16 143/60 99 06/11/22 06:00 73 15 134/56 99 06/11/22 05:00 64 16 155/64 98 06/11/22 04:09 68 06/11/22 04:00 98.5 F 73 19 117/52 99 25 06/11/22 03:46 67 06/11/22 03:41 25 06/11/22 03:00 65 30 H 99 06/11/22 02:00 68 36 H 133/58 98 06/11/22 01:00 88 33 H 107/57 97 06/11/22 00:28 75 06/11/22 00:09 75 06/11/22 00:03 25 06/11/22 00:00 98.5 F 81 16 118/57 98 25 06/10/22 23:24 71 16 115/71 98 06/10/22 23:00 80 14 115/62 99 06/10/22 22:00 80 13 114/55 98 06/10/22 21:00 87 19 99 06/10/22 20:00 98.5 F 90 18 119/56 99 25 06/10/22 19:51 84 06/10/22 19:41 86 06/10/22 19:35 25 06/10/22 19:00 77 16 127/56 99 06/10/22 18:00 90 17 138/67 99 06/10/22 17:00 72 16 126/70 99 25 06/10/22 16:00 98.8 F 81 16 123/70 99 25 06/10/22 15:00 75 16 98 06/10/22 14:43 25 06/10/22 14:00 92 127/56 99 06/10/22 13:00 87 32 H 137/50 99 06/10/22 12:00 98.5 F 88 16 144/65 96 25 06/10/22 11:46 80 06/10/22 11:36 82 Intake and Output 06/10/22 06/11/22 06/11/22 22:59 06:59 14:59 Intake Total 289.806 9664.703 553.713 Output Total 385 405 220 Balance 527.632 6367.703 333.713 Intake: IV 234 587 292 0.9 Pressure Bag 24 27 12 Dextrose 5% in Water 1, 210 210 000 ml @ 75 mls/hr IV . [id number] [facility] Rx#:[id number] Sodium Chloride 0.45% 1, 350 280 000 ml @ 70 mls/hr IV . [id number] [facility] Rx#:[id number] Intake, IV Titration 428.536 82.703 49.713 Amount Clevidipine Butyrate 25 15.634 49.2 39.8 mg In Empty Bag 1 bag @ 1 MG/HR 2 mls/hr IV .Q24H [facility] Rx#:[id number] Insulin Regular 100 unit 62.902 33.503 9.913 In Sodium Chloride 0.9% 100 ml @ Titrate IV .Q0M [facility] Rx#:[id number] Sodium Chloride 0.45% 1, 350 000 ml @ 70 mls/hr IV . [id number] [facility] Rx#:[id number] Tube Feeding 120 438 212 Other 400 Output: Urine 385 405 220 Other: Voiding Method Indwelling Catheter Indwelling Catheter Weight 101.6 kg ABP, PAP, CO, CI - Last 8 Hours Arterial Blood Pressure 162/53 Arterial Blood Pressure 164/55 Arterial Blood Pressure 168/54 Arterial Blood Pressure 157/52 Arterial Blood Pressure 125/44 Arterial Blood Pressure 161/71 Results 06/11/22 04:00 06/11/22 04:00 CBC 06/11/22 Range/Units 04:00 WBC 13.1 H (3.8-10.6) k/uL RBC 3.83 L (4.30-5.90) m/uL Hgb 11.3 L (13.0-17.5) gm/dL Hct 34.1 L (39.0-53.0) % Plt Count 206 (150-450) k/uL Comprehensive Metabolic Panel 06/11/22 Range/Units 04:00 Sodium 146 H (137-145) mmol/L Potassium 3.7 (3.5-5.1) mmol/L Chloride 115 H (98-107) mmol/L Carbon Dioxide 20 L (22-30) mmol/L BUN 73 H (9-20) mg/dL Creatinine 3.01 H (0.66-1.25) mg/dL Glucose 107 H (74-99) mg/dL Calcium 7.7 L (8.4-10.2) mg/dL Current Medications Generic Name Dose Route Start Last Admin Trade Name Freq PRN Reason Stop Dose Admin Albuterol/Ipratropium 3 ml 06/09/22 16:00 06/11/22 08:13 Ipratropium-Albuterol 3 Ml Neb INHALATION 3 ml RT-Q4H [facility] Administration Amlodipine Besylate 10 mg 06/10/22 09:00 06/11/22 09:15 Amlodipine 10 Mg Tab PO 10 mg DAILY [facility] Administration Chlorhexidine Gluconate 15 ml 06/09/22 21:00 06/11/22 09:15 Chlorhexidine Gluconate 15 Ml Cup MUCOUS MEM 15 ml BID [facility] Administration Dextrose/Water 25 ml 06/10/22 12:28 Dextrose 50% Syringe 50 Ml IVP PER PROTOCOL PRN Hypoglycemia Protocol Dextrose/Water 50 ml 06/10/22 12:28 Dextrose 50% Syringe 50 Ml IVP PER PROTOCOL PRN Hypoglycemia Protocol Enoxaparin Sodium 30 mg 06/10/22 09:00 06/11/22 09:15 Enoxaparin 30 Mg/0.3 Ml Syringe SQ 30 mg DAILY [facility] Administration Piperacillin Sod/Tazobactam 100 mls @ 25 mls/hr 06/09/22 16:00 06/11/22 08:46 Sod 3.375 gm/ Sodium Chloride IVPB 25 mls/hr Q8HR [facility] Administration Protocol Levetiracetam 500 mg/ Sodium 105 mls @ 400 mls/hr 06/09/22 21:00 06/11/22 09:15 Chloride IVPB 400 mls/hr Q12HR [facility] Administration Clevidipine 25 mg/ IV Solution 50 mls @ 2 mls/hr 06/09/22 16:45 06/11/22 09:43 IV 5 mg/hr .Q24H [facility] 10 mls/hr Administration Protocol 1 MG/HR Sodium Chloride 1,000 mls @ 70 mls/hr 06/10/22 11:30 06/11/22 00:18 Saline 0.45% IV 70 mls/hr .[id number] [facility] Administration Insulin Human Regular 100 unit 100 mls @ 0 mls/hr 06/10/22 12:30 06/11/22 11:01 / Sodium Chloride IV 5.6 units/hr .Q0M [facility] 5.6 mls/hr Titration Protocol Titrate Metoprolol Tartrate 50 mg 06/10/22 13:45 06/11/22 09:15 Metoprolol Tartrate 50 Mg Tab PO 50 mg BID [facility] Administration Miscellaneous Information 1 each 06/11/22 06:48 Potassium Replacement Protocol 1 Each Misc MISCELLANE DAILY PRN Per Protocol Protocol Naloxone HCl 0.2 mg 06/09/22 12:27 Naloxone 0.4 Mg/Ml 1 Ml Vial IV Q2M PRN Opioid Reversal Pantoprazole Sodium 40 mg 06/10/22 09:00 06/11/22 09:15 Pantoprazole 40 Mg/10 Ml Vial IV 40 mg DAILY [facility] Administration Intake and Output 06/10/22 06/11/22 06/11/22 22:59 06:59 14:59 Intake Total 349.306 6796.703 553.713 Output Total 385 405 220 Balance 358.237 9100.703 333.713 Intake: IV 234 587 292 0.9 Pressure Bag 24 27 12 Dextrose 5% in Water 1, 210 210 000 ml @ 75 mls/hr IV . [id number] [facility] Rx#:[id number] Sodium Chloride 0.45% 1, 350 280 000 ml @ 70 mls/hr IV . [id number] [facility] Rx#:[id number] Intake, IV Titration 428.536 82.703 49.713 Amount Clevidipine Butyrate 25 15.634 49.2 39.8 mg In Empty Bag 1 bag @ 1 MG/HR 2 mls/hr IV .Q24H [facility] Rx#:[id number] Insulin Regular 100 unit 62.902 33.503 9.913 In Sodium Chloride 0.9% 100 ml @ Titrate IV .Q0M [facility] Rx#:[id number] Sodium Chloride 0.45% 1, 350 000 ml @ 70 mls/hr IV . [id number] [facility] Rx#:[id number] Tube Feeding 120 438 212 Other 400 Output: Urine 385 405 220 Other: Voiding Method Indwelling Catheter Indwelling Catheter Weight 101.6 kg 06/11/22 04:00 06/11/22 04:00
[2022-06-11 12:04] LABS: Glucose,Whole Blood 235 mg/dL (70-110)
[2022-06-11 13:03] LABS: Glucose,Whole Blood 215 mg/dL (70-110)
[2022-06-11 14:17] LABS: Glucose,Whole Blood 180 mg/dL (70-110)
[2022-06-11 15:08] LABS: Glucose,Whole Blood 177 mg/dL (70-110)
[2022-06-11 15:55] LABS: Glucose,Whole Blood 178 mg/dL (70-110)
[2022-06-11 17:10] LABS: Glucose,Whole Blood 165 mg/dL (70-110)
[2022-06-11 18:12] LABS: Glucose,Whole Blood 162 mg/dL (70-110)
[2022-06-11 18:59] LABS: Glucose,Whole Blood 173 mg/dL (70-110)
[2022-06-11 21:28] LABS: Glucose,Whole Blood 178 mg/dL (70-110)
[2022-06-11 23:13] LABS: Glucose,Whole Blood 201 mg/dL (70-110)
[2022-06-11 23:51] LABS: Glucose,Whole Blood 170 mg/dL (70-110)
[2022-06-12] MEDS: PIPERACILLIN-TAZOBACTAM 3.375 GM in SODIUM CHLORIDE 0.9% 100 ML IVPB SCH ×3 (00:52→15:45)
[2022-06-12 01:08] LABS: Glucose,Whole Blood 168 mg/dL (70-110)
[2022-06-12] MEDS ORDERED: LIDOCAINE 2% (PF) 20 MG/ML 5 ML VIAL INHALATION ONE (01:14)
[2022-06-12 02:58] LABS: Glucose,Whole Blood 199 mg/dL (70-110)
[2022-06-12] MEDS: IPRATROPIUM-ALBUTEROL 3 ML NEB INHALATION SCH ×6 (04:13→23:38)
[2022-06-12 04:45] LABS: Glucose,Whole Blood 197 mg/dL (70-110)
[2022-06-12 05:04] LABS: Basophils % (A) 0 %; Eosinophils # (A) 0.7 k/uL (0-0.7); Eosinophils % (A) 6 %; HCT 33.9 % (39.0-53.0); HGB 11.4 gm/dL (13.0-17.5); Lymphocytes # (A) 1.5 k/uL (1.0-4.8); Lymphocytes % (A) 12 %; MCH 30.2 pg (25.0-35.0); MCHC 33.7 g/dL (31.0-37.0); MCV 89.6 fL (80.0-100.0); Monocytes # (A) 0.7 k/uL (0-1.0); Monocytes % (A) 5 %; Neutrophils # (A) 9.4 k/uL (1.3-7.7); Neutrophils % (A) 75 %; Platelet Count 206 k/uL (150-450); RBC 3.78 m/uL (4.30-5.90); RDW 14.8 % (11.5-15.5); WBC 12.6 k/uL (3.8-10.6)
[2022-06-12 05:21] LABS: Albumin 2.8 g/dL (3.5-5.0); Calcium 7.5 mg/dL (8.4-10.2); Potassium 3.7 mmol/L (3.5-5.1); Total Bilirubin 0.4 mg/dL (0.2-1.3); Total Protein 5.3 g/dL (6.3-8.2)
[2022-06-12 05:59] LABS: Glucose,Whole Blood 200 mg/dL (70-110)
[2022-06-12] MEDS ORDERED: POTASSIUM BICARBONATE/CIT AC 20 MEQ TABLET.EFF NG-TUBE SCH (06:00)
[2022-06-12 06:02] LABS: ABG Base Excess -3.5 mmol/L; ABG HCO3 21 mmol/L (21-25); ABG PCO2 35 mmHg (35-45); ABG PH 7.39 (7.35-7.45); ABG PO2 105 mmHg (83-108); ABG TCO2 23 mmol/L (19-24); Allen Test Performed? Yes
[2022-06-12] MEDS: INSULIN REGULAR 100 UNIT in SODIUM CHLORIDE 0.9% 100 ML IV SCH (06:03)
[2022-06-12] MEDS: CLEVIDIPINE BUTYRATE 25 MG in EMPTY BAG 1 BAG IV SCH ×4 (06:05→22:22)
[2022-06-12] MEDS: SODIUM CHLORIDE 0.45% 1,000 ML IV SCH ×2 (06:06→23:00)
[2022-06-12 07:04] LABS: Glucose,Whole Blood 195 mg/dL (70-110)
--- NOTE | 2022-06-12 07:37 | PN ---
PROGRESS NOTE SUBJECTIVE: This is a 71-year-old gentleman who was admitted with multiple medical problems and is being evaluated for anoxic encephalopathy also. Neurology has seen the patient. EEG showed diffuse significant slowing. The patient is still on mechanical ventilation. The patient is DNR at this time. The patient is on insulin and Cleviprex. PAST MEDICAL HISTORY: Reviewed. REVIEW OF SYSTEMS: Could not be taken. CURRENT MEDICATIONS: Reviewed include Cleviprex, dose and rest of medications reviewed. PHYSICAL EXAMINATION: VITAL SIGNS: Pulse is 74, blood pressure 130/70, respirations 17. HEENT: Conjunctivae normal. CARDIOVASCULAR: S1, S2. RESPIRATIONS: A few scattered rhonchi. ABDOMEN: Soft. LEGS: No edema. NERVOUS SYSTEM: Unresponsive. LABS: Accu-Cheks reviewed. The rest of the labs are also reviewed. ASSESSMENT: 1. Anoxic brain injury, possibly secondary to prolonged cardiorespiratory arrest. 2. Possible aspiration pneumonia and sepsis with Klebsiella oxytoca and acute hypoxic respiratory failure, on mechanical ventilation. 3. Diabetes mellitus, type 2 uncontrolled with IV insulin drip. 4. Acute urinary tract infection. 5. Hypertension. 6. History of cerebrovascular accident. 7. History of deep venous thrombosis. 8. Multiple medical issues. RECOMMENDATIONS AND DISCUSSION: I recommend to continue current medications, symptomatic treatment. The patient is currently no code. Prognosis guarded. Closely follow. Continue the empiric treatment and we will closely follow with Dr. Lopes. Family is apparently considering the possibility of terminal weaning also because of the poor prognosis. Further condition to follow. MMSKYLERL / OPALN: [id number] /
--- NOTE | 2022-06-12 08:01 | XR ---
EXAMINATION TYPE: XR chest 1V portable DATE OF EXAM: 06/12/2022 COMPARISON: Chest x-ray 06/11/2022 HISTORY: Intubated TECHNIQUE: Single frontal view of the chest is obtained. FINDINGS: Endotracheal tube and NG tube, left subclavian central venous catheter are overlying appro priate positions, side-port of the NG tube is at the level of the gastroesophageal junction and may b e withdrawn slightly in interval. The cardiac mediastinal silhouette is stable. No evident pneumothor ax or pleural effusion. Right hemidiaphragm is mildly elevated. There are overlying artifacts. Bones are unchanged. There is thoracic spondylosis. IMPRESSION: NG tube side port is near the gastroesophageal junction.
[2022-06-12] MEDS: PANTOPRAZOLE 40 MG/10 ML VIAL IV SCH (08:16)
[2022-06-12] MEDS: CHLORHEXIDINE GLUCONATE 15 ML CUP MUCOUS MEM SCH ×2 (08:16→20:51)
[2022-06-12] MEDS: ENOXAPARIN 30 MG/0.3 ML SYRINGE SQ SCH (08:17)
[2022-06-12] MEDS: levETIRAcetam IV 500 MG in SODIUM CHLORIDE 0.9% 100 ML IVPB SCH ×2 (08:17→20:51)
[2022-06-12] MEDS: amLODIPine 10 MG TAB PO SCH (08:17)
[2022-06-12] MEDS: METOPROLOL TARTRATE 50 MG TAB PO SCH ×2 (08:17→20:50)
[2022-06-12 08:35] LABS: Glucose,Whole Blood 174 mg/dL (70-110)
--- NOTE | 2022-06-12 09:32 | P.PN ---
Subjective Progress Note Date: 06/11/22 Patient was seen for a follow-up. Patient is off sedation. Clinically no improvement. Continues to be comatose. Objective - Vital Signs Vital signs: Vital Signs Temp 98.5 F 06/11/22 12:00 Pulse 74 06/11/22 15:00 Resp 17 06/11/22 15:00 BP 133/55 06/11/22 15:00 Pulse Ox 97 06/11/22 15:00 FiO2 21 06/11/22 16:00 Intake & Output 06/10/22 06/11/22 06/11/22 18:59 06:59 18:59 Intake Total 8505.437 5121.659 1138.818 Output Total 595 595 560 Balance 153.783 2671.659 578.818 Weight 101.6 kg Intake: IV 411 809 730 0.9 Pressure Bag 36 39 30 Dextrose 5% in Water 1, 375 420 000 ml @ 75 mls/hr IV . [id number] [facility] Rx#:[id number] Sodium Chloride 0.45% 1, 350 700 000 ml @ 70 mls/hr IV . [id number] [facility] Rx#:[id number] Intake, IV Titration 641.141 184.659 143.818 Amount Clevidipine Butyrate 25 116.600 49.2 112.134 mg In Empty Bag 1 bag @ 1 MG/HR 2 mls/hr IV .Q24H [facility] Rx#:[id number] Insulin Regular 100 unit 34.541 65.459 31.684 In Sodium Chloride 0.9% 100 ml @ Titrate IV .Q0M [facility] Rx#:[id number] Sodium Chloride 0.45% 1, 490 70 000 ml @ 70 mls/hr IV . [id number] [facility] Rx#:[id number] Tube Feeding 20 558 265 Other 400 Output: Urine 595 595 560 Other: Voiding Method Indwelling Catheter Indwelling Catheter Indwelling Catheter ABP, PAP, CO, CI - Last Documented Arterial Blood Pressure 146/43 - Exam Patient is an elderly male, who is comatose, with GCS of 4(E1, V1, M2). Patient is comatose, intubated. Patient is not on any sedation since 06/06/2022. On cranial nerve examination, pupils are very small, and the left pupil is slightly bigger than the right. Both are mildly reactive. Gaze is in midline. Oculocephalics are present. Corneals present. Patient does have gag and cough. On muscle strength testing, patient has very mild withdrawal movement of the arms to painful stimuli, with some facial grimacing, but not in the legs. The response appears slightly less as compared to yesterday. Deep tendon reflexes are symmetric (right/left) very hypoactive in the lower, plantar is up on the right, flat on the left. Sensory to touch cannot be assessed, response to painful stimuli as above. Cerebellar function cannot be assessed. Tone is at least moderately increased bilaterally. Gait not able to be tested. On general examination, there is no carotid bruit or murmur, S1-S2 audible. Chest is clear on consultation. Abdomen is soft nontender. No organomegaly, bowel sounds present. Mild peripheral edema. - Labs CBC & Chem 7: 06/12/22 04:46 06/12/22 04:46 Labs: Abnormal Lab Results - Last 24 Hours (Table) 06/10/22 06/10/22 06/10/22 Range/Units 04:45 18:06 18:57 WBC (3.8-10.6) k/uL RBC (4.30-5.90) m/uL Hgb (13.0-17.5) gm/dL Hct (39.0-53.0) % Neutrophils # (1.3-7.7) k/uL ABG pCO2 (35-45) mmHg ABG pO2 (83-108) mmHg ABG O2 Saturation (94-97) % Sodium (137-145) mmol/L Chloride (98-107) mmol/L Carbon Dioxide (22-30) mmol/L BUN (9-20) mg/dL Creatinine (0.66-1.25) mg/dL Glucose (74-99) mg/dL POC Glucose (mg/dL) 208 H 170 H (70-110) mg/dL Hemoglobin A1c 7.2 H (0.0-6.0) % Calcium (8.4-10.2) mg/dL 06/10/22 06/10/22 06/10/22 Range/Units 20:41 22:10 23:10 WBC (3.8-10.6) k/uL RBC (4.30-5.90) m/uL Hgb (13.0-17.5) gm/dL Hct (39.0-53.0) % Neutrophils # (1.3-7.7) k/uL ABG pCO2 (35-45) mmHg ABG pO2 (83-108) mmHg ABG O2 Saturation (94-97) % Sodium (137-145) mmol/L Chloride (98-107) mmol/L Carbon Dioxide (22-30) mmol/L BUN (9-20) mg/dL Creatinine (0.66-1.25) mg/dL Glucose (74-99) mg/dL POC Glucose (mg/dL) 119 H 170 H 183 H (70-110) mg/dL Hemoglobin A1c (0.0-6.0) % Calcium (8.4-10.2) mg/dL 06/11/22 06/11/22 06/11/22 Range/Units 00:20 01:44 02:49 WBC (3.8-10.6) k/uL RBC (4.30-5.90) m/uL Hgb (13.0-17.5) gm/dL Hct (39.0-53.0) % Neutrophils # (1.3-7.7) k/uL ABG pCO2 (35-45) mmHg ABG pO2 (83-108) mmHg ABG O2 Saturation (94-97) % Sodium (137-145) mmol/L Chloride (98-107) mmol/L Carbon Dioxide (22-30) mmol/L BUN (9-20) mg/dL Creatinine (0.66-1.25) mg/dL Glucose (74-99) mg/dL POC Glucose (mg/dL) 186 H 173 H 151 H (70-110) mg/dL Hemoglobin A1c (0.0-6.0) % Calcium (8.4-10.2) mg/dL 06/11/22 06/11/22 06/11/22 Range/Units 04:00 04:00 04:23 WBC 13.1 H (3.8-10.6) k/uL RBC 3.83 L (4.30-5.90) m/uL Hgb 11.3 L (13.0-17.5) gm/dL Hct 34.1 L (39.0-53.0) % Neutrophils # 10.0 H (1.3-7.7) k/uL ABG pCO2 (35-45) mmHg ABG pO2 (83-108) mmHg ABG O2 Saturation (94-97) % Sodium 146 H (137-145) mmol/L Chloride 115 H (98-107) mmol/L Carbon Dioxide 20 L (22-30) mmol/L BUN 73 H (9-20) mg/dL Creatinine 3.01 H (0.66-1.25) mg/dL Glucose 107 H (74-99) mg/dL POC Glucose (mg/dL) 123 H (70-110) mg/dL Hemoglobin A1c (0.0-6.0) % Calcium 7.7 L (8.4-10.2) mg/dL 06/11/22 06/11/22 06/11/22 Range/Units 05:43 06:35 06:47 WBC (3.8-10.6) k/uL RBC (4.30-5.90) m/uL Hgb (13.0-17.5) gm/dL Hct (39.0-53.0) % Neutrophils # (1.3-7.7) k/uL ABG pCO2 33 L (35-45) mmHg ABG pO2 130 H (83-108) mmHg ABG O2 Saturation 99.7 H (94-97) % Sodium (137-145) mmol/L Chloride (98-107) mmol/L Carbon Dioxide (22-30) mmol/L BUN (9-20) mg/dL Creatinine (0.66-1.25) mg/dL Glucose (74-99) mg/dL POC Glucose (mg/dL) 127 H 165 H (70-110) mg/dL Hemoglobin A1c (0.0-6.0) % Calcium (8.4-10.2) mg/dL 06/11/22 06/11/22 06/11/22 Range/Units 08:33 09:37 10:55 WBC (3.8-10.6) k/uL RBC (4.30-5.90) m/uL Hgb (13.0-17.5) gm/dL Hct (39.0-53.0) % Neutrophils # (1.3-7.7) k/uL ABG pCO2 (35-45) mmHg ABG pO2 (83-108) mmHg ABG O2 Saturation (94-97) % Sodium (137-145) mmol/L Chloride (98-107) mmol/L Carbon Dioxide (22-30) mmol/L BUN (9-20) mg/dL Creatinine (0.66-1.25) mg/dL Glucose (74-99) mg/dL POC Glucose (mg/dL) 229 H 249 H 247 H (70-110) mg/dL Hemoglobin A1c (0.0-6.0) % Calcium (8.4-10.2) mg/dL 06/11/22 06/11/22 06/11/22 Range/Units 12:03 13:02 14:12 WBC (3.8-10.6) k/uL RBC (4.30-5.90) m/uL Hgb (13.0-17.5) gm/dL Hct (39.0-53.0) % Neutrophils # (1.3-7.7) k/uL ABG pCO2 (35-45) mmHg ABG pO2 (83-108) mmHg ABG O2 Saturation (94-97) % Sodium (137-145) mmol/L Chloride (98-107) mmol/L Carbon Dioxide (22-30) mmol/L BUN (9-20) mg/dL Creatinine (0.66-1.25) mg/dL Glucose (74-99) mg/dL POC Glucose (mg/dL) 235 H 215 H 180 H (70-110) mg/dL Hemoglobin A1c (0.0-6.0) % Calcium (8.4-10.2) mg/dL 06/11/22 06/11/22 06/11/22 Range/Units 15:06 15:52 17:08 WBC (3.8-10.6) k/uL RBC (4.30-5.90) m/uL Hgb (13.0-17.5) gm/dL Hct (39.0-53.0) % Neutrophils # (1.3-7.7) k/uL ABG pCO2 (35-45) mmHg ABG pO2 (83-108) mmHg ABG O2 Saturation (94-97) % Sodium (137-145) mmol/L Chloride (98-107) mmol/L Carbon Dioxide (22-30) mmol/L BUN (9-20) mg/dL Creatinine (0.66-1.25) mg/dL Glucose (74-99) mg/dL POC Glucose (mg/dL) 177 H 178 H 165 H (70-110) mg/dL Hemoglobin A1c (0.0-6.0) % Calcium (8.4-10.2) mg/dL Microbiology - Last 24 Hours (Table) 06/09/22 13:40 Blood Culture - Preliminary Blood No Growth after 48 hours 06/09/22 13:40 Blood Culture - Preliminary Blood No Growth after 48 hours Assessment and Plan Assessment: * Status post cardiac arrest, with unclear downtime. Patient at present comatose with GCS of 4. * Probable anoxic encephalopathy. * Ventilator-dependent respiratory failure, on mechanical ventilation. * Hypertension * Diabetes2 * History of recurrent falls in the last 1 year. Plan: * Patient continues to be comatose, clinically no improvement, although appears minimally worse today. Patient's was present today. Tried to explain current situation, but she still not able to grasp patient's condition. Patient's has dementia. * We will repeat CT head, and EEG in the morning. * EEG on 06/09/2022 was an abnormal EEG due to background slowing of at least moderate to severe degree. This is suggestive of generalized cerebral dysfunction as can be seen with toxic metabolic encephalopathy or related to diffuse structural brain abnormality. Clinical correlation is recommended. No obvious epileptiform activity was seen. * Patient currently on Keppra 500 mg every 12 hours, which can be continued for now. * CT head from 06/08/2022 was reviewed, which showed no acute process, no cerebral edema. * Patient on day 7, is comatose (not on any sedatives), which makes prognosis very guarded to poor. However we will continue to follow clinically. We will follow test above. * Discussed with the nursing staff in detail. * Patient is DO NOT RESUSCITATE.
[2022-06-12 10:03] LABS: Glucose,Whole Blood 174 mg/dL (70-110)
--- NOTE | 2022-06-12 10:34 | P.PN ---
Subjective Progress Note Date: 06/12/22 Principal diagnosis: Respiratory failure. 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 On 06/05/2022 patient was a witnessed collapse at home per his family. The exact details of resuscitation efforts, total downtime is unknown to us from the available documentation sent over from [facility], however there is a mention that patient had multiple unsuccessful intubation attempts per EMS related to a edematous upper airways. He was intubated by ER physician upon arrival to the [facility] emergency department. Per the nursing staff the reports starting CPR, and when EMS arrived the monitor showed sinus tachycardia. ACLS interventions are not known to us other than intubation attempts. Patient has history of multiple comorbid conditions including CVA, hypertension, poorly controlled diabetes mellitus type 2, previous history of DVT on Xarelto. Computed tomography scan of the brain showed no evidence for acute intracranial hemorrhage, no acute infarct, mass, mass effect or midline shift. There was mild white matter hypodensity relating to chronic small vessel ischemic disease. chest x-ray showed evidence of scattered septal opacities throughout the lungs possibly related to pulmonary edema. Patient was started on empiric antibiotics. He was started on IV Decadron related to upper airway edema. Computed tomography scan of the neck was reportedly negative. Patient's urine culture was reported to be positive for enterococci, and his sputum was positive for Klebsiella species. We'll try to obtain further information. Initial laboratory evaluation showed white blood cell count of 16.7, hemoglobin of 13.2, platelet count is 245, sodium is 137, potassium is 5.4, chloride is 100, CO2 is 21.8, BUN is 47, creatinine is 3.0, glucose was 408, calcium is 8.5, magnesium is 1.9, AST was 39, ALT was 26, alk phos was 71, total bilirubin was 1.2, INR was 1.07, urinalysis showed 2+ glucose, 1+ ketones, 3+ blood, 1+ leukocyte esterase, greater than 25 white blood cells, first set of troponins was less than 0.020, hemoglobin A1c was 9.1, TSH was 3.072. His antibiotic coverage was switched to Zosyn, renal ultrasound shows no hydronephrosis bilaterally. Follow-up computed tomography scan of the brain yesterday on 06/08/2022 showed no acute intracranial hemorrhage or midline shift, mild to moderate diffuse ventricular and sulcal prominence consistent with diffuse age-related cerebral atrophy, moderate low attenuation in the periventricular white matter consistent with chronic small vessel ischemic change, and near complete opacification of the right sphenoid sinus which was nonspecific. Patient has not been on any sedation, he remains intubated, according to the nursing staff patient was given a spontaneous breathing trial yesterday. He is comatose after being 2 days off sedation, he is withdrawing to pain, he is on assist-control mode of ventilation right now, he was transferred to the [facility] intensive care unit for neurology evaluation and treatment for possibility of anoxic brain injury. He was started on Keppra, stat EEG is pending. On arrival patient is on assist-control mode with a rate of 10, tidal volume is 500, FiO2 of 30% and PEEP of 5. He is on D5 W at a rate of 75 ML per hour for hyponatremia with a sodium of 153, no other drips. His propofol has been off for over 48 hours. No other sedatives, narcotics or hypnotics were given during that time. Blood gas was obtained on those settings showing pO2 of 143, pCO2 of 37, and pH of 7.44 and this was done on FiO2 of 30%. The rest of the blood work is pending at this time Progress note dated 06/10/2022. This patient was transferred from [facility] yesterday, to our intensive care unit. The patient was poorly responsive/unresponsive, and there was some concern about anoxic brain injury. The patient did have a cardiopulmonary arrest. Unfortunately, the patient was not waking up over there, and because it did not have neurology coverage see her, the patient was transferred here, by my partner. He was intubated on June 05. Currently, he remains on mechanical ventilator. Yesterday, we saw him when he came over and placed a left radial art line. He really had a central line. Neurology was consulted. EEG showed diffuse slowing. Norvasc was initiated today. Ventilator settings include the volume assist control, rate 16, tidal volume 500, FiO2 30%, and PEEP of 5. Blood gases show pO2 157, pCO2 34, pH is 7.42. The FiO2 was reduced down to 25%. The patient's getting D5W at 75 mL an hour, Cleveprex at 12 mg an hour, saline at 20 mL an hour, and vital high protein at 20 mL an hour, with a goal of 53. Labs today include a white count 10.6, hemoglobin 11.8, hematocrit 34.9, and platelet count 290,000. Sodium 145, potassium 3.8, chlorides 117, CO2 21, BUN 62, creatinine 2.59. Albumin is 2.6. Chest x-ray looks surprisingly normal, with a mildly elevated right diaphragm. The report from the outside hospital was sent the urine was positive for enterococci his sputum was positive for Klebsiella. Progress note dated 06/11/2022. This is a 71-year-old male transferred from [facility] because of cardiac arrest. The patient likely sustained significant anoxic brain injury. The patient is now a DO NOT RESUSCITATE patient. The family is apparently considering comfort measures. He was intubated on June 05. Remains on mechanical ventilator. He is on volume assist control, rate 16, tidal volume 500, FiO2 25%, and PEEP of 5. Arterial blood gases show pO2 130, pCO2 of 33, and pH is 7.42. The FiO2 was reduced down to 21%. Currently, the patient is on half-normal saline at 70 mL an hour, Cleveprex at 5 mg an hour, and insulin drip at 3.6 units an hour. His mental status has not improved. EEG showed diffuse slowing, consistent with encephalopathy. Labs today show white count of 13.1, hemoglobin 11.3, hematocrit 34.1, and platelet count of 206,000. Sodium 146, potassium 3.7, chlorides 1:15, CO2 20, BUN 73, creatinine 3.01. Chest x-ray is stable, and is currently on Zosyn for a urine that was positive for enterococci and sputum, which was positive for Klebsiella. Progress note dated 06/12/2022. 71-year-old male transferred from [facility], status post cardiac arrest, with anoxic brain injury. The patient is now a DO NOT RESUSCITATE patient. The patient is unresponsive, and has had no improvement in his neurologic status. The family's considering comfort measures. Today, he'll have a repeat EEG, and CAT scan as per neurology. He remains on the mechanical ventilator. He is on volume assist control, rate 16, tidal volume 500, FiO2 21%, and PEEP of 5. Arterial blood gases show pO2 105, pCO2 35, and pH is 7.39. Is getting half-normal saline at 70 mL an hour, Cleveprex at 8 mg an hour, insulin at 6.4 units an hour, and vital high protein at 53 mL an hour. White co unt 12.6, hemoglobin 11.4, hematocrit 33.9, platelet count 206,000. Sodium 144, potassium 3.7, chlorides 113, CO2 19, anion gap 12, BUN 75, and creatinine 3.09. Chest x-ray from today shows proper placement of tubes and lines, and essentially no change from prior chest x-rays. Lung canela are actually relatively clear. Objective - Vital Signs Vital signs: Vital Signs Temp 98.7 F 06/12/22 08:00 Pulse 67 06/12/22 10:00 Resp 16 06/12/22 10:00 BP 121/49 06/12/22 03:00 Pulse Ox 98 06/12/22 10:00 FiO2 21 06/12/22 10:26 Intake & Output 06/11/22 06/12/22 06/12/22 18:59 06:59 18:59 Intake Total 8000.496 9611.071 1010.979 Output Total 685 1220 225 Balance 614.818 919.071 785.979 Weight 100 kg Intake: IV 876 803 292 0.9 Pressure Bag 36 33 12 Sodium Chloride 0.45% 1, 840 770 280 000 ml @ 70 mls/hr IV . [id number] [facility] Rx#:[id number] Intake, IV Titration 158.818 153.071 266.979 Amount Clevidipine Butyrate 25 127.134 94.800 61.399 mg In Empty Bag 1 bag @ 1 MG/HR 2 mls/hr IV .Q24H [facility] Rx#:[id number] Insulin Regular 100 unit 31.684 58.271 5.58 In Sodium Chloride 0.9% 100 ml @ Titrate IV .Q0M [facility] Rx#:[id number] Piperacillin-Tazobactam 3 100 .375 gm In Sodium Chloride 0.9% 100 ml @ 25 mls/hr IVPB Q8HR [facility] Rx# :[id number] levETIRAcetam IV 500 mg 100 In Sodium Chloride 0.9% 100 ml @ 400 mls/hr IVPB Q12HR [facility] Rx#:[id number] Tube Feeding 265 583 212 Other 600 240 Output: Urine 685 745 225 Stool 475 Other: Voiding Method Indwelling Catheter Indwelling Catheter ABP, PAP, CO, CI - Last Documented Arterial Blood Pressure 156/53 - Exam No acute distress, not on any sedation, and only responsive to deep pain. No gag reflex. HEENT examination is grossly unremarkable. Oral endotracheal tube noted. Neck supple. Full range of motion. No adenopathy thyromegaly or neck vein distention. Cardiovascular examination reveals regular rhythm rate. S1-S2 normal. No S3 or S4. No discernible murmur noted. Heart rate 67 bpm. Lungs reveal mostly clear breath sounds. Minimal scattered rhonchi. No wheezes or crackles. Saturations 99%. Abdomen soft with bowel sounds. No masses. Extremities are intact. No cyanosis clubbing or edema. Skin reveals some bilateral lower extremity chronic venous changes. Neurologic examination is is unchanged. - Labs CBC & Chem 7: 06/12/22 04:46 06/12/22 04:46 Labs: Abnormal Lab Results - Last 24 Hours (Table) 06/11/22 06/11/22 06/11/22 Range/Units 10:55 12:03 13:02 WBC (3.8-10.6) k/uL RBC (4.30-5.90) m/uL Hgb (13.0-17.5) gm/dL Hct (39.0-53.0) % Neutrophils # (1.3-7.7) k/uL ABG O2 Saturation (94-97) % Chloride (98-107) mmol/L Carbon Dioxide (22-30) mmol/L BUN (9-20) mg/dL Creatinine (0.66-1.25) mg/dL Glucose (74-99) mg/dL POC Glucose (mg/dL) 247 H 235 H 215 H (70-110) mg/dL Calcium (8.4-10.2) mg/dL Total Protein (6.3-8.2) g/dL Albumin (3.5-5.0) g/dL 06/11/22 06/11/22 06/11/22 Range/Units 14:12 15:06 15:52 WBC (3.8-10.6) k/uL RBC (4.30-5.90) m/uL Hgb (13.0-17.5) gm/dL Hct (39.0-53.0) % Neutrophils # (1.3-7.7) k/uL ABG O2 Saturation (94-97) % Chloride (98-107) mmol/L Carbon Dioxide (22-30) mmol/L BUN (9-20) mg/dL Creatinine (0.66-1.25) mg/dL Glucose (74-99) mg/dL POC Glucose (mg/dL) 180 H 177 H 178 H (70-110) mg/dL Calcium (8.4-10.2) mg/dL Total Protein (6.3-8.2) g/dL Albumin (3.5-5.0) g/dL 06/11/22 06/11/22 06/11/22 Range/Units 17:08 18:11 18:58 WBC (3.8-10.6) k/uL RBC (4.30-5.90) m/uL Hgb (13.0-17.5) gm/dL Hct (39.0-53.0) % Neutrophils # (1.3-7.7) k/uL ABG O2 Saturation (94-97) % Chloride (98-107) mmol/L Carbon Dioxide (22-30) mmol/L BUN (9-20) mg/dL Creatinine (0.66-1.25) mg/dL Glucose (74-99) mg/dL POC Glucose (mg/dL) 165 H 162 H 173 H (70-110) mg/dL Calcium (8.4-10.2) mg/dL Total Protein (6.3-8.2) g/dL Albumin (3.5-5.0) g/dL 06/11/22 06/11/22 06/11/22 Range/Units 21:27 23:09 23:49 WBC (3.8-10.6) k/uL RBC (4.30-5.90) m/uL Hgb (13.0-17.5) gm/dL Hct (39.0-53.0) % Neutrophils # (1.3-7.7) k/uL ABG O2 Saturation (94-97) % Chloride (98-107) mmol/L Carbon Dioxide (22-30) mmol/L BUN (9-20) mg/dL Creatinine (0.66-1.25) mg/dL Glucose (74-99) mg/dL POC Glucose (mg/dL) 178 H 201 H 170 H (70-110) mg/dL Calcium (8.4-10.2) mg/dL Total Protein (6.3-8.2) g/dL Albumin (3.5-5.0) g/dL 06/12/22 06/12/22 06/12/22 Range/Units 01:00 02:56 04:43 WBC (3.8-10.6) k/uL RBC (4.30-5.90) m/uL Hgb (13.0-17.5) gm/dL Hct (39.0-53.0) % Neutrophils # (1.3-7.7) k/uL ABG O2 Saturation (94-97) % Chloride (98-107) mmol/L Carbon Dioxide (22-30) mmol/L BUN (9-20) mg/dL Creatinine (0.66-1.25) mg/dL Glucose (74-99) mg/dL POC Glucose (mg/dL) 168 H 199 H 197 H (70-110) mg/dL Calcium (8.4-10.2) mg/dL Total Protein (6.3-8.2) g/dL Albumin (3.5-5.0) g/dL 06/12/22 06/12/22 06/12/22 Range/Units 04:46 04:46 05:53 WBC 12.6 H (3.8-10.6) k/uL RBC 3.78 L (4.30-5.90) m/uL Hgb 11.4 L (13.0-17.5) gm/dL Hct 33.9 L (39.0-53.0) % Neutrophils # 9.4 H (1.3-7.7) k/uL ABG O2 Saturation 99.0 H (94-97) % Chloride 113 H (98-107) mmol/L Carbon Dioxide 19 L (22-30) mmol/L BUN 75 H (9-20) mg/dL Creatinine 3.09 H (0.66-1.25) mg/dL Glucose 193 H (74-99) mg/dL POC Glucose (mg/dL) (70-110) mg/dL Calcium 7.5 L (8.4-10.2) mg/dL Total Protein 5.3 L (6.3-8.2) g/dL Albumin 2.8 L (3.5-5.0) g/dL 06/12/22 06/12/22 06/12/22 Range/Units 05:58 07:02 08:33 WBC (3.8-10.6) k/uL RBC (4.30-5.90) m/uL Hgb (13.0-17.5) gm/dL Hct (39.0-53.0) % Neutrophils # (1.3-7.7) k/uL ABG O2 Saturation (94-97) % Chloride (98-107) mmol/L Carbon Dioxide (22-30) mmol/L BUN (9-20) mg/dL Creatinine (0.66-1.25) mg/dL Glucose (74-99) mg/dL POC Glucose (mg/dL) 200 H 195 H 174 H (70-110) mg/dL Calcium (8.4-10.2) mg/dL Total Protein (6.3-8.2) g/dL Albumin (3.5-5.0) g/dL 06/12/22 Range/Units 10:01 WBC (3.8-10.6) k/uL RBC (4.30-5.90) m/uL Hgb (13.0-17.5) gm/dL Hct (39.0-53.0) % Neutrophils # (1.3-7.7) k/uL ABG O2 Saturation (94-97) % Chloride (98-107) mmol/L Carbon Dioxide (22-30) mmol/L BUN (9-20) mg/dL Creatinine (0.66-1.25) mg/dL Glucose (74-99) mg/dL POC Glucose (mg/dL) 174 H (70-110) mg/dL Calcium (8.4-10.2) mg/dL Total Protein (6.3-8.2) g/dL Albumin (3.5-5.0) g/dL Microbiology - Last 24 Hours (Table) 06/09/22 13:40 Blood Culture - Preliminary Blood No Growth after 48 hours 06/09/22 13:40 Blood Culture - Preliminary Blood No Growth after 48 hours Assessment and Plan Assessment: Acute anoxic brain injury related to acute cardiopulmonary arrest. Patient was admitted to [facility] on 06/05/2022 after suffering of witnessed collapse per his family, with initiation of CPR, difficult intubation out in the field due to upper airway edema. Primary cause of the cardiopulmonary arrest is unknown at this time, awaiting further records from the [facility]. Acute hypoxic respiratory failure possibly related to aspiration pneumonia and sepsis. Sputum cultures showed Klebsiella species. Acute urinary tract infection related to enterococcus species currently on Zosyn. Acute kidney injury. Poorly controlled diabetes mellitus type 2. Hypertension. Previous history of DVT. History of CVA Plan: Plan dated 06/10/2022. The patient is being nourished. We will increase tube feedings to goal. The FiO2 on the ventilator was reduced down to 25%. We will initiate Norvasc today, which she was taking at home, and weaning the Cleveprex. Sodium is much improved. Blood gases are stable. The patient is apparently scheduled for repeat computed tomography scan of the brain today. Neurology was consulted. EEG showed diffuse moderate to severe slowing. This is consistent with anoxic and/or metabolic encephalopathy. If the patient does not improve, consideration of tracheostomy and PEG tube placement will be discussed with family. Plan dated 06/11/2022. The patient is now a DO NOT RESUSCITATE. This is appropriate given the fact that he likely has significant anoxic brain injury, on his examination, and the EEG. The patient remains on Cleveprex for blood pressure control, and insulin for control of blood sugars. Today, his FiO2 was reduced down to 21%. His chest x-ray was normal. Labs, x-rays, and medications are reviewed. Prognosis is very poor. The family is apparently considering withdrawal from life support. No additional recommendations are made at this time. Plan dated 06/12/2022. The patient is now a DO NOT RESUSCITATE patient. Family is considering comfort measures. Neurology has ordered a repeat EEG and computed tomography scan of the brain. Labs, x-rays, and medications are reviewed. The patient remains on Cleveprex for blood pressure control, and insulin, for glucose control. We will continue to follow and make recommendations were appropriate. Obviously, prognosis is very poor. Time with Patient: Greater than 30
[2022-06-12] MEDS: hydrALAZINE HCL 25 MG TAB PO SCH ×2 (10:38→20:50)
--- NOTE | 2022-06-12 10:48 | P.PN ---
Subjective Patient is seen for follow-up for acute kidney injury mostly ATN. Renal function had been improving however this morning serum creatinine is higher at 3.0 from 2.59 yesterday. Patient had an episode of A. fib with RVR which persisted throughout the whole day on 06/10/2022. Currently he is in normal sinus rhythm. No significant hypotension noted. No fever Urine output at 50-60 mL per hour. CODE STATUS changed to no code no CPR Objective - Vital Signs Vital signs: Vital Signs Temp 98.7 F 06/12/22 08:00 Pulse 67 06/12/22 10:00 Resp 16 06/12/22 10:00 BP 121/49 06/12/22 03:00 Pulse Ox 98 06/12/22 10:00 FiO2 21 06/12/22 10:26 Intake & Output 06/11/22 06/12/22 06/12/22 18:59 06:59 18:59 Intake Total 3591.810 8680.071 1010.979 Output Total 685 1220 225 Balance 614.818 919.071 785.979 Weight 100 kg Intake: IV 876 803 292 0.9 Pressure Bag 36 33 12 Sodium Chloride 0.45% 1, 840 770 280 000 ml @ 70 mls/hr IV . [id number] [facility] Rx#:[id number] Intake, IV Titration 158.818 153.071 266.979 Amount Clevidipine Butyrate 25 127.134 94.800 61.399 mg In Empty Bag 1 bag @ 1 MG/HR 2 mls/hr IV .Q24H [facility] Rx#:[id number] Insulin Regular 100 unit 31.684 58.271 5.58 In Sodium Chloride 0.9% 100 ml @ Titrate IV .Q0M [facility] Rx#:[id number] Piperacillin-Tazobactam 3 100 .375 gm In Sodium Chloride 0.9% 100 ml @ 25 mls/hr IVPB Q8HR [facility] Rx# :[id number] levETIRAcetam IV 500 mg 100 In Sodium Chloride 0.9% 100 ml @ 400 mls/hr IVPB Q12HR [facility] Rx#:[id number] Tube Feeding 265 583 212 Other 600 240 Output: Urine 685 745 225 Stool 475 Other: Voiding Method Indwelling Catheter Indwelling Catheter ABP, PAP, CO, CI - Last Documented Arterial Blood Pressure 156/53 - Exam Patient is intubated. He remains unresponsive He is currently on the vent Examination of the heart S1 and S2 Examination lungs bilateral breath sounds are heard Abdomen is soft nontender Examination lower extremity shows no significant edema - Labs CBC & Chem 7: 06/12/22 04:46 06/12/22 04:46 Labs: Abnormal Lab Results - Last 24 Hours (Table) 06/11/22 06/11/22 06/11/22 Range/Units 10:55 12:03 13:02 WBC (3.8-10.6) k/uL RBC (4.30-5.90) m/uL Hgb (13.0-17.5) gm/dL Hct (39.0-53.0) % Neutrophils # (1.3-7.7) k/uL ABG O2 Saturation (94-97) % Chloride (98-107) mmol/L Carbon Dioxide (22-30) mmol/L BUN (9-20) mg/dL Creatinine (0.66-1.25) mg/dL Glucose (74-99) mg/dL POC Glucose (mg/dL) 247 H 235 H 215 H (70-110) mg/dL Calcium (8.4-10.2) mg/dL Total Protein (6.3-8.2) g/dL Albumin (3.5-5.0) g/dL 06/11/22 06/11/22 06/11/22 Range/Units 14:12 15:06 15:52 WBC (3.8-10.6) k/uL RBC (4.30-5.90) m/uL Hgb (13.0-17.5) gm/dL Hct (39.0-53.0) % Neutrophils # (1.3-7.7) k/uL ABG O2 Saturation (94-97) % Chloride (98-107) mmol/L Carbon Dioxide (22-30) mmol/L BUN (9-20) mg/dL Creatinine (0.66-1.25) mg/dL Glucose (74-99) mg/dL POC Glucose (mg/dL) 180 H 177 H 178 H (70-110) mg/dL Calcium (8.4-10.2) mg/dL Total Protein (6.3-8.2) g/dL Albumin (3.5-5.0) g/dL 06/11/22 06/11/22 06/11/22 Range/Units 17:08 18:11 18:58 WBC (3.8-10.6) k/uL RBC (4.30-5.90) m/uL Hgb (13.0-17.5) gm/dL Hct (39.0-53.0) % Neutrophils # (1.3-7.7) k/uL ABG O2 Saturation (94-97) % Chloride (98-107) mmol/L Carbon Dioxide (22-30) mmol/L BUN (9-20) mg/dL Creatinine (0.66-1.25) mg/dL Glucose (74-99) mg/dL POC Glucose (mg/dL) 165 H 162 H 173 H (70-110) mg/dL Calcium (8.4-10.2) mg/dL Total Protein (6.3-8.2) g/dL Albumin (3.5-5.0) g/dL 06/11/22 06/11/22 06/11/22 Range/Units 21:27 23:09 23:49 WBC (3.8-10.6) k/uL RBC (4.30-5.90) m/uL Hgb (13.0-17.5) gm/dL Hct (39.0-53.0) % Neutrophils # (1.3-7.7) k/uL ABG O2 Saturation (94-97) % Chloride (98-107) mmol/L Carbon Dioxide (22-30) mmol/L BUN (9-20) mg/dL Creatinine (0.66-1.25) mg/dL Glucose (74-99) mg/dL POC Glucose (mg/dL) 178 H 201 H 170 H (70-110) mg/dL Calcium (8.4-10.2) mg/dL Total Protein (6.3-8.2) g/dL Albumin (3.5-5.0) g/dL 06/12/22 06/12/22 06/12/22 Range/Units 01:00 02:56 04:43 WBC (3.8-10.6) k/uL RBC (4.30-5.90) m/uL Hgb (13.0-17.5) gm/dL Hct (39.0-53.0) % Neutrophils # (1.3-7.7) k/uL ABG O2 Saturation (94-97) % Chloride (98-107) mmol/L Carbon Dioxide (22-30) mmol/L BUN (9-20) mg/dL Creatinine (0.66-1.25) mg/dL Glucose (74-99) mg/dL POC Glucose (mg/dL) 168 H 199 H 197 H (70-110) mg/dL Calcium (8.4-10.2) mg/dL Total Protein (6.3-8.2) g/dL Albumin (3.5-5.0) g/dL 06/12/22 06/12/22 06/12/22 Range/Units 04:46 04:46 05:53 WBC 12.6 H (3.8-10.6) k/uL RBC 3.78 L (4.30-5.90) m/uL Hgb 11.4 L (13.0-17.5) gm/dL Hct 33.9 L (39.0-53.0) % Neutrophils # 9.4 H (1.3-7.7) k/uL ABG O2 Saturation 99.0 H (94-97) % Chloride 113 H (98-107) mmol/L Carbon Dioxide 19 L (22-30) mmol/L BUN 75 H (9-20) mg/dL Creatinine 3.09 H (0.66-1.25) mg/dL Glucose 193 H (74-99) mg/dL POC Glucose (mg/dL) (70-110) mg/dL Calcium 7.5 L (8.4-10.2) mg/dL Total Protein 5.3 L (6.3-8.2) g/dL Albumin 2.8 L (3.5-5.0) g/dL 06/12/22 06/12/22 06/12/22 Range/Units 05:58 07:02 08:33 WBC (3.8-10.6) k/uL RBC (4.30-5.90) m/uL Hgb (13.0-17.5) gm/dL Hct (39.0-53.0) % Neutrophils # (1.3-7.7) k/uL ABG O2 Saturation (94-97) % Chloride (98-107) mmol/L Carbon Dioxide (22-30) mmol/L BUN (9-20) mg/dL Creatinine (0.66-1.25) mg/dL Glucose (74-99) mg/dL POC Glucose (mg/dL) 200 H 195 H 174 H (70-110) mg/dL Calcium (8.4-10.2) mg/dL Total Protein (6.3-8.2) g/dL Albumin (3.5-5.0) g/dL 06/12/22 Range/Units 10:01 WBC (3.8-10.6) k/uL RBC (4.30-5.90) m/uL Hgb (13.0-17.5) gm/dL Hct (39.0-53.0) % Neutrophils # (1.3-7.7) k/uL ABG O2 Saturation (94-97) % Chloride (98-107) mmol/L Carbon Dioxide (22-30) mmol/L BUN (9-20) mg/dL Creatinine (0.66-1.25) mg/dL Glucose (74-99) mg/dL POC Glucose (mg/dL) 174 H (70-110) mg/dL Calcium (8.4-10.2) mg/dL Total Protein (6.3-8.2) g/dL Albumin (3.5-5.0) g/dL Microbiology - Last 24 Hours (Table) 06/09/22 13:40 Blood Culture - Preliminary Blood No Growth after 48 hours 06/09/22 13:40 Blood Culture - Preliminary Blood No Growth after 48 hours Assessment and Plan Assessment: 1. Acute kidney injury ATN from sepsis and hypotension during his initial hospitalization at [facility] [place]. Renal function had been improving however it is worse today most likely related to A. fib with RVR yesterday. Urine output is maintained. Patient was also restarted on IV fluids. 2. Hypernatremia associated with free water deficit status post D5W. Currently maintained on half normal saline. Free water down the feeding tube was also increased. 3. Encephalopathy most likely anoxic encephalopathy 4. Status post cardiac arrest 5. UTI with urine culture growing enterococcus species 6. Possible pneumonia 7. Hypertension maintained on clear at [place] drip Plan: Continue with half normal saline Continue with free water flushes Add hydralazine to help wean off clevidipine drip
[2022-06-12 11:10] LABS: Glucose,Whole Blood 174 mg/dL (70-110)
--- NOTE | 2022-06-12 12:11 | CT ---
EXAMINATION TYPE: CT brain wo con CT DLP: 1158.4 mGycm, Automated exposure control for dose reduction was used. DATE OF EXAM: 06/12/2022 11:46 AM COMPARISON: 06/08/2022 CLINICAL INDICATION:Male, 71 years old with history of Cardiac arrest, TECHNIQUE: Brain: Axial CT images of the brain were obtained with coronal and sagittal reformats created and rev iewed. Contrast used: None. Oral contrast used: None. FINDINGS: Brain: Extra-axial spaces: No abnormal extra-axial fluid collections. Ventricular system: Dilatation in proportion to cerebral atrophy. Cerebral parenchyma: Cerebral atrophy. No acute intraparenchymal hemorrhage or mass effect. The zhao -white junction is well differentiated. Scattered hypoattenuating areas are seen within the white mat ter. Cerebellum: Unremarkable. Mass effect: No evidence of midline shift. Intracranial vasculature: unremarkable Soft tissues: Normal. Calvarium/osseous structures: No depressed skull fracture. Paranasal sinuses and mastoid air cells: Mild scattered paranasal sinus disease. Visualized orbits: Orbital contents are intact. IMPRESSION: 1. No acute intracranial process. 2. Nonspecific white matter changes, likely secondary to chronic small vessel ischemic disease.
[2022-06-12 12:38] LABS: Glucose,Whole Blood 147 mg/dL (70-110)
[2022-06-12 14:12] LABS: Glucose,Whole Blood 142 mg/dL (70-110)
--- NOTE | 2022-06-12 15:34 | P.PN ---
Subjective Progress Note Date: 06/11/22 Principal diagnosis: Pneumonia Patient is a 71-year male initially presented to [facility] episode of unresponsive cardiac arrest s/p resuscitation intubation and the patient did have evidence of pneumonia sputum was positive for Klebsiella blood culture with staph epi likely contaminant subsequently transferred to [facility] for EEG and neuro evaluation. On today's evaluation that is 06/11/2022 the patient remains to be afebrile, the patient remains to be intubated on the vent FiO2 is down to 21 % patient is hemodynamically stable not requiring any pressor support , the patient been tolerating his tube feeds no diarrhea has been reported by the nursing staff Objective - Vital Signs Vital signs: Vital Signs Temp 98.5 F 06/11/22 12:00 Pulse 68 06/11/22 12:00 Resp 16 06/11/22 12:00 BP 125/52 06/11/22 12:00 Pulse Ox 97 06/11/22 12:00 FiO2 21 06/11/22 12:00 Intake & Output 06/10/22 06/11/22 06/11/22 18:59 06:59 18:59 Intake Total 4601.552 2092.659 713.227 Output Total 595 595 270 Balance 248.732 1463.659 443.227 Weight 101.6 kg Intake: IV 411 809 365 0.9 Pressure Bag 36 39 15 Dextrose 5% in Water 1, 375 420 000 ml @ 75 mls/hr IV . [id number] ONE Rx#:[id number] Sodium Chloride 0.45% 1, 350 350 000 ml @ 70 mls/hr IV . [id number] [facility] Rx#:[id number] Intake, IV Titration 641.141 184.659 83.227 Amount Clevidipine Butyrate 25 116.600 49.2 66.967 mg In Empty Bag 1 bag @ 1 MG/HR 2 mls/hr IV .Q24H [facility] Rx#:[id number] Insulin Regular 100 unit 34.541 65.459 16.260 In Sodium Chloride 0.9% 100 ml @ Titrate IV .Q0M [facility] Rx#:[id number] Sodium Chloride 0.45% 1, 490 70 000 ml @ 70 mls/hr IV . [id number] [facility] Rx#:[id number] Tube Feeding 20 558 265 Other 400 Output: Urine 595 595 270 Other: Voiding Method Indwelling Catheter Indwelling Catheter ABP, PAP, CO, CI - Last Documented Arterial Blood Pressure 139/40 - Exam GENERAL DESCRIPTION: Elderly male intubated on the vent. LUNGS: Unlabored breathing. Decreased breath sound at the base HEART: S1, S2, regular rate and rhythm. No loud murmur ABDOMEN: Soft, no tenderness , guarding or rigidity, no organomegaly EXTREMITIES: No edema of feet. - Labs CBC & Chem 7: 06/12/22 04:46 06/12/22 04:46 Labs: Abnormal Lab Results - Last 24 Hours (Table) 06/10/22 06/10/22 06/10/22 Range/Units 04:45 13:46 14:50 WBC (3.8-10.6) k/uL RBC (4.30-5.90) m/uL Hgb (13.0-17.5) gm/dL Hct (39.0-53.0) % Neutrophils # (1.3-7.7) k/uL ABG pCO2 (35-45) mmHg ABG pO2 (83-108) mmHg ABG O2 Saturation (94-97) % Sodium (137-145) mmol/L Chloride (98-107) mmol/L Carbon Dioxide (22-30) mmol/L BUN (9-20) mg/dL Creatinine (0.66-1.25) mg/dL Glucose (74-99) mg/dL POC Glucose (mg/dL) 337 H 330 H (70-110) mg/dL Hemoglobin A1c 7.2 H (0.0-6.0) % Calcium (8.4-10.2) mg/dL 06/10/22 06/10/22 06/10/22 Range/Units 15:47 16:57 18:06 WBC (3.8-10.6) k/uL RBC (4.30-5.90) m/uL Hgb (13.0-17.5) gm/dL Hct (39.0-53.0) % Neutrophils # (1.3-7.7) k/uL ABG pCO2 (35-45) mmHg ABG pO2 (83-108) mmHg ABG O2 Saturation (94-97) % Sodium (137-145) mmol/L Chloride (98-107) mmol/L Carbon Dioxide (22-30) mmol/L BUN (9-20) mg/dL Creatinine (0.66-1.25) mg/dL Glucose (74-99) mg/dL POC Glucose (mg/dL) 304 H 262 H 208 H (70-110) mg/dL Hemoglobin A1c (0.0-6.0) % Calcium (8.4-10.2) mg/dL 06/10/22 06/10/22 06/10/22 Range/Units 18:57 20:41 22:10 WBC (3.8-10.6) k/uL RBC (4.30-5.90) m/uL Hgb (13.0-17.5) gm/dL Hct (39.0-53.0) % Neutrophils # (1.3-7.7) k/uL ABG pCO2 (35-45) mmHg ABG pO2 (83-108) mmHg ABG O2 Saturation (94-97) % Sodium (137-145) mmol/L Chloride (98-107) mmol/L Carbon Dioxide (22-30) mmol/L BUN (9-20) mg/dL Creatinine (0.66-1.25) mg/dL Glucose (74-99) mg/dL POC Glucose (mg/dL) 170 H 119 H 170 H (70-110) mg/dL Hemoglobin A1c (0.0-6.0) % Calcium (8.4-10.2) mg/dL 06/10/22 06/11/22 06/11/22 Range/Units 23:10 00:20 01:44 WBC (3.8-10.6) k/uL RBC (4.30-5.90) m/uL Hgb (13.0-17.5) gm/dL Hct (39.0-53.0) % Neutrophils # (1.3-7.7) k/uL ABG pCO2 (35-45) mmHg ABG pO2 (83-108) mmHg ABG O2 Saturation (94-97) % Sodium (137-145) mmol/L Chloride (98-107) mmol/L Carbon Dioxide (22-30) mmol/L BUN (9-20) mg/dL Creatinine (0.66-1.25) mg/dL Glucose (74-99) mg/dL POC Glucose (mg/dL) 183 H 186 H 173 H (70-110) mg/dL Hemoglobin A1c (0.0-6.0) % Calcium (8.4-10.2) mg/dL 06/11/22 06/11/22 06/11/22 Range/Units 02:49 04:00 04:00 WBC 13.1 H (3.8-10.6) k/uL RBC 3.83 L (4.30-5.90) m/uL Hgb 11.3 L (13.0-17.5) gm/dL Hct 34.1 L (39.0-53.0) % Neutrophils # 10.0 H (1.3-7.7) k/uL ABG pCO2 (35-45) mmHg ABG pO2 (83-108) mmHg ABG O2 Saturation (94-97) % Sodium 146 H (137-145) mmol/L Chloride 115 H (98-107) mmol/L Carbon Dioxide 20 L (22-30) mmol/L BUN 73 H (9-20) mg/dL Creatinine 3.01 H (0.66-1.25) mg/dL Glucose 107 H (74-99) mg/dL POC Glucose (mg/dL) 151 H (70-110) mg/dL Hemoglobin A1c (0.0-6.0) % Calcium 7.7 L (8.4-10.2) mg/dL 06/11/22 06/11/22 06/11/22 Range/Units 04:23 05:43 06:35 WBC (3.8-10.6) k/uL RBC (4.30-5.90) m/uL Hgb (13.0-17.5) gm/dL Hct (39.0-53.0) % Neutrophils # (1.3-7.7) k/uL ABG pCO2 33 L (35-45) mmHg ABG pO2 130 H (83-108) mmHg ABG O2 Saturation 99.7 H (94-97) % Sodium (137-145) mmol/L Chloride (98-107) mmol/L Carbon Dioxide (22-30) mmol/L BUN (9-20) mg/dL Creatinine (0.66-1.25) mg/dL Glucose (74-99) mg/dL POC Glucose (mg/dL) 123 H 127 H (70-110) mg/dL Hemoglobin A1c (0.0-6.0) % Calcium (8.4-10.2) mg/dL 06/11/22 06/11/22 06/11/22 Range/Units 06:47 08:33 09:37 WBC (3.8-10.6) k/uL RBC (4.30-5.90) m/uL Hgb (13.0-17.5) gm/dL Hct (39.0-53.0) % Neutrophils # (1.3-7.7) k/uL ABG pCO2 (35-45) mmHg ABG pO2 (83-108) mmHg ABG O2 Saturation (94-97) % Sodium (137-145) mmol/L Chloride (98-107) mmol/L Carbon Dioxide (22-30) mmol/L BUN (9-20) mg/dL Creatinine (0.66-1.25) mg/dL Glucose (74-99) mg/dL POC Glucose (mg/dL) 165 H 229 H 249 H (70-110) mg/dL Hemoglobin A1c (0.0-6.0) % Calcium (8.4-10.2) mg/dL 06/11/22 06/11/22 Range/Units 10:55 12:03 WBC (3.8-10.6) k/uL RBC (4.30-5.90) m/uL Hgb (13.0-17.5) gm/dL Hct (39.0-53.0) % Neutrophils # (1.3-7.7) k/uL ABG pCO2 (35-45) mmHg ABG pO2 (83-108) mmHg ABG O2 Saturation (94-97) % Sodium (137-145) mmol/L Chloride (98-107) mmol/L Carbon Dioxide (22-30) mmol/L BUN (9-20) mg/dL Creatinine (0.66-1.25) mg/dL Glucose (74-99) mg/dL POC Glucose (mg/dL) 247 H 235 H (70-110) mg/dL Hemoglobin A1c (0.0-6.0) % Calcium (8.4-10.2) mg/dL Microbiology - Last 24 Hours (Table) 06/09/22 13:40 Blood Culture - Preliminary Blood No Growth after 24 hours 06/09/22 13:40 Blood Culture - Preliminary Blood No Growth after 24 hours Assessment and Plan (1) Aspiration pneumonia Current Visit: Yes Status: Acute Code(s): J69.0 - PNEUMONITIS DUE TO INHALATION OF FOOD AND VOMIT SNOMED Code(s): 434313757 Plan: 1patient with acute respiratory failure which is multifactorial in this patient with initial presentation with unresponsiveness/cardiac arrest and concerning for aspiration pneumonia, the patient sputum were positive for Klebsiella for which the patient is covered with Zosyn will be continued and will monitor clinical course closely Time with Patient: Less than 30
--- NOTE | 2022-06-12 15:35 | P.PN ---
Subjective Progress Note Date: 06/12/22 Principal diagnosis: Pneumonia Patient is a 71-year male initially presented to [facility] episode of unresponsive cardiac arrest s/p resuscitation intubation and the patient did have evidence of pneumonia sputum was positive for Klebsiella blood culture with staph epi likely contaminant subsequently transferred to [facility] for EEG and neuro evaluation. On today's evaluation that is 06/12/2022 the patient continues to be afebrile, the patient remains to be intubated on the vent FiO2 is stable at 21 %, the patient is hemodynamically stable not requiring any pressor support , the patient been tolerating his tube feeds no diarrhea has been reported by the nursing staff, and no other changes reported Objective - Vital Signs Vital signs: Vital Signs Temp 98.2 F 06/12/22 12:00 Pulse 70 06/12/22 12:15 Resp 16 06/12/22 12:00 BP 121/49 06/12/22 03:00 Pulse Ox 98 06/12/22 12:00 FiO2 21 06/12/22 12:00 Intake & Output 06/11/22 06/12/22 06/12/22 18:59 06:59 18:59 Intake Total 0215.197 7337.071 1302.346 Output Total 685 1220 335 Balance 614.818 919.071 967.346 Weight 100 kg Intake: IV 876 803 438 0.9 Pressure Bag 36 33 18 Sodium Chloride 0.45% 1, 840 770 420 000 ml @ 70 mls/hr IV . [id number] [facility] Rx#:[id number] Intake, IV Titration 158.818 153.071 286.346 Amount Clevidipine Butyrate 25 127.134 94.800 80.766 mg In Empty Bag 1 bag @ 1 MG/HR 2 mls/hr IV .Q24H [facility] Rx#:[id number] Insulin Regular 100 unit 31.684 58.271 5.58 In Sodium Chloride 0.9% 100 ml @ Titrate IV .Q0M [facility] Rx#:[id number] Piperacillin-Tazobactam 3 100 .375 gm In Sodium Chloride 0.9% 100 ml @ 25 mls/hr IVPB Q8HR [facility] Rx# :[id number] levETIRAcetam IV 500 mg 100 In Sodium Chloride 0.9% 100 ml @ 400 mls/hr IVPB Q12HR [facility] Rx#:[id number] Tube Feeding 265 583 318 Other 600 260 Output: Urine 685 745 335 Stool 475 Other: Voiding Method Indwelling Catheter Indwelling Catheter Indwelling Catheter ABP, PAP, CO, CI - Last Documented Arterial Blood Pressure 164/53 - Exam GENERAL DESCRIPTION: Elderly male intubated on the vent. LUNGS: Unlabored breathing. Decreased breath sound at the base HEART: S1, S2, regular rate and rhythm. No loud murmur ABDOMEN: Soft, no tenderness , guarding or rigidity, no organomegaly EXTREMITIES: No edema of feet. - Labs CBC & Chem 7: 06/12/22 04:46 06/12/22 04:46 Labs: Abnormal Lab Results - Last 24 Hours (Table) 06/11/22 06/11/22 06/11/22 Range/Units 13:02 14:12 15:06 WBC (3.8-10.6) k/uL RBC (4.30-5.90) m/uL Hgb (13.0-17.5) gm/dL Hct (39.0-53.0) % Neutrophils # (1.3-7.7) k/uL ABG O2 Saturation (94-97) % Chloride (98-107) mmol/L Carbon Dioxide (22-30) mmol/L BUN (9-20) mg/dL Creatinine (0.66-1.25) mg/dL Glucose (74-99) mg/dL POC Glucose (mg/dL) 215 H 180 H 177 H (70-110) mg/dL Calcium (8.4-10.2) mg/dL Total Protein (6.3-8.2) g/dL Albumin (3.5-5.0) g/dL 06/11/22 06/11/22 06/11/22 Range/Units 15:52 17:08 18:11 WBC (3.8-10.6) k/uL RBC (4.30-5.90) m/uL Hgb (13.0-17.5) gm/dL Hct (39.0-53.0) % Neutrophils # (1.3-7.7) k/uL ABG O2 Saturation (94-97) % Chloride (98-107) mmol/L Carbon Dioxide (22-30) mmol/L BUN (9-20) mg/dL Creatinine (0.66-1.25) mg/dL Glucose (74-99) mg/dL POC Glucose (mg/dL) 178 H 165 H 162 H (70-110) mg/dL Calcium (8.4-10.2) mg/dL Total Protein (6.3-8.2) g/dL Albumin (3.5-5.0) g/dL 06/11/22 06/11/22 06/11/22 Range/Units 18:58 21:27 23:09 WBC (3.8-10.6) k/uL RBC (4.30-5.90) m/uL Hgb (13.0-17.5) gm/dL Hct (39.0-53.0) % Neutrophils # (1.3-7.7) k/uL ABG O2 Saturation (94-97) % Chloride (98-107) mmol/L Carbon Dioxide (22-30) mmol/L BUN (9-20) mg/dL Creatinine (0.66-1.25) mg/dL Glucose (74-99) mg/dL POC Glucose (mg/dL) 173 H 178 H 201 H (70-110) mg/dL Calcium (8.4-10.2) mg/dL Total Protein (6.3-8.2) g/dL Albumin (3.5-5.0) g/dL 06/11/22 06/12/22 06/12/22 Range/Units 23:49 01:00 02:56 WBC (3.8-10.6) k/uL RBC (4.30-5.90) m/uL Hgb (13.0-17.5) gm/dL Hct (39.0-53.0) % Neutrophils # (1.3-7.7) k/uL ABG O2 Saturation (94-97) % Chloride (98-107) mmol/L Carbon Dioxide (22-30) mmol/L BUN (9-20) mg/dL Creatinine (0.66-1.25) mg/dL Glucose (74-99) mg/dL POC Glucose (mg/dL) 170 H 168 H 199 H (70-110) mg/dL Calcium (8.4-10.2) mg/dL Total Protein (6.3-8.2) g/dL Albumin (3.5-5.0) g/dL 06/12/22 06/12/22 06/12/22 Range/Units 04:43 04:46 04:46 WBC 12.6 H (3.8-10.6) k/uL RBC 3.78 L (4.30-5.90) m/uL Hgb 11.4 L (13.0-17.5) gm/dL Hct 33.9 L (39.0-53.0) % Neutrophils # 9.4 H (1.3-7.7) k/uL ABG O2 Saturation (94-97) % Chloride 113 H (98-107) mmol/L Carbon Dioxide 19 L (22-30) mmol/L BUN 75 H (9-20) mg/dL Creatinine 3.09 H (0.66-1.25) mg/dL Glucose 193 H (74-99) mg/dL POC Glucose (mg/dL) 197 H (70-110) mg/dL Calcium 7.5 L (8.4-10.2) mg/dL Total Protein 5.3 L (6.3-8.2) g/dL Albumin 2.8 L (3.5-5.0) g/dL 06/12/22 06/12/22 06/12/22 Range/Units 05:53 05:58 07:02 WBC (3.8-10.6) k/uL RBC (4.30-5.90) m/uL Hgb (13.0-17.5) gm/dL Hct (39.0-53.0) % Neutrophils # (1.3-7.7) k/uL ABG O2 Saturation 99.0 H (94-97) % Chloride (98-107) mmol/L Carbon Dioxide (22-30) mmol/L BUN (9-20) mg/dL Creatinine (0.66-1.25) mg/dL Glucose (74-99) mg/dL POC Glucose (mg/dL) 200 H 195 H (70-110) mg/dL Calcium (8.4-10.2) mg/dL Total Protein (6.3-8.2) g/dL Albumin (3.5-5.0) g/dL 06/12/22 06/12/22 06/12/22 Range/Units 08:33 10:01 11:08 WBC (3.8-10.6) k/uL RBC (4.30-5.90) m/uL Hgb (13.0-17.5) gm/dL Hct (39.0-53.0) % Neutrophils # (1.3-7.7) k/uL ABG O2 Saturation (94-97) % Chloride (98-107) mmol/L Carbon Dioxide (22-30) mmol/L BUN (9-20) mg/dL Creatinine (0.66-1.25) mg/dL Glucose (74-99) mg/dL POC Glucose (mg/dL) 174 H 174 H 174 H (70-110) mg/dL Calcium (8.4-10.2) mg/dL Total Protein (6.3-8.2) g/dL Albumin (3.5-5.0) g/dL Microbiology - Last 24 Hours (Table) 06/09/22 13:40 Blood Culture - Preliminary Blood No Growth after 48 hours 06/09/22 13:40 Blood Culture - Preliminary Blood No Growth after 48 hours Assessment and Plan (1) Aspiration pneumonia Current Visit: Yes Status: Acute Code(s): J69.0 - PNEUMONITIS DUE TO INHALATION OF FOOD AND VOMIT SNOMED Code(s): 906952855 Plan: 1patient with acute respiratory failure which is multifactorial in this patient with initial presentation with unresponsiveness/cardiac arrest and concerning for aspiration pneumonia, the patient sputum were positive for Klebsiella for which the patient is covered with Zosyn and monitor clinical course closely 2- leukocytosis however the patient remains to be afebrile, if the patient spike any fever or any worsening white count we will reculture and adjust antibiotics Time with Patient: Less than 30
[2022-06-12 15:37] LABS: Glucose,Whole Blood 121 mg/dL (70-110)
[2022-06-12 16:39] LABS: Glucose,Whole Blood 180 mg/dL (70-110)
[2022-06-12 17:45] LABS: Glucose,Whole Blood 192 mg/dL (70-110)
[2022-06-12 18:52] LABS: Glucose,Whole Blood 177 mg/dL (70-110)
[2022-06-12 19:49] LABS: Glucose,Whole Blood 195 mg/dL (70-110)
[2022-06-12 21:06] LABS: Glucose,Whole Blood 189 mg/dL (70-110)
--- NOTE | 2022-06-12 21:43 | P.PN ---
Subjective Progress Note Date: 06/12/22 Patient was seen for a follow-up. Patient is off sedation. Clinically no improvement. Continues to be comatose. No seizure-like activity reported. Objective - Vital Signs Vital signs: Vital Signs Temp 98.2 F 06/12/22 12:00 Pulse 64 06/12/22 15:00 Resp 16 06/12/22 15:00 BP 121/49 06/12/22 03:00 Pulse Ox 99 06/12/22 15:00 FiO2 21 06/12/22 12:00 Intake & Output 06/11/22 06/12/22 06/12/22 18:59 06:59 18:59 Intake Total 6013.237 5577.071 1954.773 Output Total 685 1220 490 Balance 614.818 609.133 9227.773 Weight 100 kg 100 kg Intake: IV 876 803 657 0.9 Pressure Bag 36 33 27 Sodium Chloride 0.45% 1, 840 770 630 000 ml @ 70 mls/hr IV . [id number] [facility] Rx#:[id number] Intake, IV Titration 158.818 153.071 360.773 Amount Clevidipine Butyrate 25 127.134 94.800 100.366 mg In Empty Bag 1 bag @ 1 MG/HR 2 mls/hr IV .Q24H [facility] Rx#:[id number] Insulin Regular 100 unit 31.684 58.271 60.407 In Sodium Chloride 0.9% 100 ml @ Titrate IV .Q0M [facility] Rx#:[id number] Piperacillin-Tazobactam 3 100 .375 gm In Sodium Chloride 0.9% 100 ml @ 25 mls/hr IVPB Q8HR [facility] Rx# :[id number] levETIRAcetam IV 500 mg 100 In Sodium Chloride 0.9% 100 ml @ 400 mls/hr IVPB Q12HR [facility] Rx#:[id number] Tube Feeding 265 583 477 Other 600 460 Output: Urine 685 745 490 Stool 475 Other: Voiding Method Indwelling Catheter Indwelling Catheter Indwelling Catheter ABP, PAP, CO, CI - Last Documented Arterial Blood Pressure 151/45 - Exam Patient is an elderly male, who is comatose, with GCS of 4(E1, V1, M2). Patient is comatose, intubated. Patient is not on any sedation since 06/06/2022. On cranial nerve examination, pupils are small, 3 mm, and the left pupil is very minimally bigger than the right. Both are mildly reactive. Gaze is in midline. Oculocephalics are present. Corneals present. Patient does have gag and cough. Patient is breathing over the ventilator. On muscle strength testing, patient has very minimal withdrawal movement of the arms to painful stimuli, with some facial grimacing, but not in the legs. The response appears slightly less as compared to yesterday. Deep tendon reflexes are symmetric (right/left) very hypoactive in the lower, plantar are upgoing bilaterally. Sensory to touch cannot be assessed, response to painful stimuli as above. Cerebellar function cannot be assessed. Tone is at least moderately increased bilaterally. Gait not able to be tested. On general examination, there is no carotid bruit or murmur, S1-S2 audible. Chest is clear on consultation. Abdomen is soft nontender. No organomegaly, bowel sounds present. Mild peripheral edema. - Labs CBC & Chem 7: 06/12/22 04:46 06/12/22 04:46 Labs: Abnormal Lab Results - Last 24 Hours (Table) 06/11/22 06/11/22 06/11/22 Range/Units 17:08 18:11 18:58 WBC (3.8-10.6) k/uL RBC (4.30-5.90) m/uL Hgb (13.0-17.5) gm/dL Hct (39.0-53.0) % Neutrophils # (1.3-7.7) k/uL ABG O2 Saturation (94-97) % Chloride (98-107) mmol/L Carbon Dioxide (22-30) mmol/L BUN (9-20) mg/dL Creatinine (0.66-1.25) mg/dL Glucose (74-99) mg/dL POC Glucose (mg/dL) 165 H 162 H 173 H (70-110) mg/dL Calcium (8.4-10.2) mg/dL Total Protein (6.3-8.2) g/dL Albumin (3.5-5.0) g/dL 06/11/22 06/11/22 06/11/22 Range/Units 21:27 23:09 23:49 WBC (3.8-10.6) k/uL RBC (4.30-5.90) m/uL Hgb (13.0-17.5) gm/dL Hct (39.0-53.0) % Neutrophils # (1.3-7.7) k/uL ABG O2 Saturation (94-97) % Chloride (98-107) mmol/L Carbon Dioxide (22-30) mmol/L BUN (9-20) mg/dL Creatinine (0.66-1.25) mg/dL Glucose (74-99) mg/dL POC Glucose (mg/dL) 178 H 201 H 170 H (70-110) mg/dL Calcium (8.4-10.2) mg/dL Total Protein (6.3-8.2) g/dL Albumin (3.5-5.0) g/dL 06/12/22 06/12/22 06/12/22 Range/Units 01:00 02:56 04:43 WBC (3.8-10.6) k/uL RBC (4.30-5.90) m/uL Hgb (13.0-17.5) gm/dL Hct (39.0-53.0) % Neutrophils # (1.3-7.7) k/uL ABG O2 Saturation (94-97) % Chloride (98-107) mmol/L Carbon Dioxide (22-30) mmol/L BUN (9-20) mg/dL Creatinine (0.66-1.25) mg/dL Glucose (74-99) mg/dL POC Glucose (mg/dL) 168 H 199 H 197 H (70-110) mg/dL Calcium (8.4-10.2) mg/dL Total Protein (6.3-8.2) g/dL Albumin (3.5-5.0) g/dL 06/12/22 06/12/22 06/12/22 Range/Units 04:46 04:46 05:53 WBC 12.6 H (3.8-10.6) k/uL RBC 3.78 L (4.30-5.90) m/uL Hgb 11.4 L (13.0-17.5) gm/dL Hct 33.9 L (39.0-53.0) % Neutrophils # 9.4 H (1.3-7.7) k/uL ABG O2 Saturation 99.0 H (94-97) % Chloride 113 H (98-107) mmol/L Carbon Dioxide 19 L (22-30) mmol/L BUN 75 H (9-20) mg/dL Creatinine 3.09 H (0.66-1.25) mg/dL Glucose 193 H (74-99) mg/dL POC Glucose (mg/dL) (70-110) mg/dL Calcium 7.5 L (8.4-10.2) mg/dL Total Protein 5.3 L (6.3-8.2) g/dL Albumin 2.8 L (3.5-5.0) g/dL 06/12/22 06/12/22 06/12/22 Range/Units 05:58 07:02 08:33 WBC (3.8-10.6) k/uL RBC (4.30-5.90) m/uL Hgb (13.0-17.5) gm/dL Hct (39.0-53.0) % Neutrophils # (1.3-7.7) k/uL ABG O2 Saturation (94-97) % Chloride (98-107) mmol/L Carbon Dioxide (22-30) mmol/L BUN (9-20) mg/dL Creatinine (0.66-1.25) mg/dL Glucose (74-99) mg/dL POC Glucose (mg/dL) 200 H 195 H 174 H (70-110) mg/dL Calcium (8.4-10.2) mg/dL Total Protein (6.3-8.2) g/dL Albumin (3.5-5.0) g/dL 06/12/22 06/12/22 06/12/22 Range/Units 10:01 11:08 12:36 WBC (3.8-10.6) k/uL RBC (4.30-5.90) m/uL Hgb (13.0-17.5) gm/dL Hct (39.0-53.0) % Neutrophils # (1.3-7.7) k/uL ABG O2 Saturation (94-97) % Chloride (98-107) mmol/L Carbon Dioxide (22-30) mmol/L BUN (9-20) mg/dL Creatinine (0.66-1.25) mg/dL Glucose (74-99) mg/dL POC Glucose (mg/dL) 174 H 174 H 147 H (70-110) mg/dL Calcium (8.4-10.2) mg/dL Total Protein (6.3-8.2) g/dL Albumin (3.5-5.0) g/dL 06/12/22 06/12/22 Range/Units 14:11 15:36 WBC (3.8-10.6) k/uL RBC (4.30-5.90) m/uL Hgb (13.0-17.5) gm/dL Hct (39.0-53.0) % Neutrophils # (1.3-7.7) k/uL ABG O2 Saturation (94-97) % Chloride (98-107) mmol/L Carbon Dioxide (22-30) mmol/L BUN (9-20) mg/dL Creatinine (0.66-1.25) mg/dL Glucose (74-99) mg/dL POC Glucose (mg/dL) 142 H 121 H (70-110) mg/dL Calcium (8.4-10.2) mg/dL Total Protein (6.3-8.2) g/dL Albumin (3.5-5.0) g/dL Microbiology - Last 24 Hours (Table) 06/09/22 13:40 Blood Culture - Preliminary Blood No Growth after 72 hours 06/09/22 13:40 Blood Culture - Preliminary Blood No Growth after 72 hours Assessment and Plan Assessment: * Status post cardiac arrest, with unclear downtime. Patient at present comatose with GCS of 4. 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 * Ventilator-dependent respiratory failure, on mechanical ventilation. * Hypertension * Diabetes2 * History of recurrent falls in the last 1 year. Plan: * Patient continues to be comatose, clinically no improvement, although appears minimally more worse today. Patient's response in the upper extremities is even less. Patient's and patient's daughter from [place], and her were present today. Tried to explain current situation, but she still not able to grasp patient's condition. Patient's has dementia. * CT head from this morning showed mild atrophy, no acute process. I personally reviewed computed tomography scan, agree with the findings. * EEG on 06/12/2022 was an abnormal EEG due to background slowing of at least moderate to severe degree. This is suggestive of generalized cerebral dysfunction as can be seen with toxic metabolic encephalopathy or related to diffuse structural brain abnormality. Clinical correlation is recommended. No obvious epileptiform activity was seen. When compared to EEG from 06/09/2022, there is no significant change. * We will discontinue Keppra. * Patient on day 8, is comatose (not on any sedatives), which makes prognosis very guarded to poor. * Discussed with family about overall prognosis. Patient's daughter is inclined towards hospice, but patient's not able to make any decision. * Supportive care. * Discussed with the nursing staff in detail. * Patient is DO NOT RESUSCITATE.
--- NOTE | 2022-06-12 21:52 | EEG ---
ELECTROENCEPHALOGRAM REPORT PREAMBLE: This is a 71-year-old male with cardiac arrest. This is a followup study. The patient is comatosed. EEG FINDINGS: This is a 21-channel digital EEG recorded with video competent, utilizing 10/20 international system with referential and bipolar montages. Background consists of poorly developed and regulated, mixed frequencies of moderate amplitude, diffuse delta and theta slowing in bihemispheric region. Background does not seem to be reactive to photic stimulation or to any activation procedure. Some periods of suppression were noted lasting briefly for 1 second. Different stages of sleep were not seen. No focal or generalized epileptiform activity was seen. IMPRESSION: This is an abnormal EEG due to background slowing of moderate to severe degree. This is suggestive of generalized cerebral dysfunction as can be seen with toxic metabolic encephalopathy or due to diffuse structural brain abnormality. Clinical correlation is recommended. When compared to the study from 06/09/2022, there is no significant change. [id number] / IJN: [id number] /
[2022-06-12 23:14] LABS: Glucose,Whole Blood 211 mg/dL (70-110)
[2022-06-13 00:15] LABS: Glucose,Whole Blood 178 mg/dL (70-110)
[2022-06-13] MEDS: PIPERACILLIN-TAZOBACTAM 3.375 GM in SODIUM CHLORIDE 0.9% 100 ML IVPB SCH ×3 (00:19→15:48)
[2022-06-13 01:16] LABS: Glucose,Whole Blood 171 mg/dL (70-110)
[2022-06-13 02:03] LABS: Glucose,Whole Blood 173 mg/dL (70-110)
[2022-06-13] MEDS: CLEVIDIPINE BUTYRATE 25 MG in EMPTY BAG 1 BAG IV SCH ×3 (02:26→12:45)
[2022-06-13 03:11] LABS: Glucose,Whole Blood 175 mg/dL (70-110)
[2022-06-13] MEDS: IPRATROPIUM-ALBUTEROL 3 ML NEB INHALATION SCH ×4 (03:40→15:52)
--- NOTE | 2022-06-13 04:18 | PN ---
PROGRESS NOTE SUBJECTIVE: This 71-year-old gentleman, admitted with prolonged cardiorespiratory arrest and possible anoxic injury, is being closely monitored at this time. Neurology following the patient. The patient is currently no code. A CT scan of the brain, which is done today, which was reviewed personally by me and showed no acute intracranial abnormalities. PAST MEDICAL HISTORY: Reviewed. REVIEW OF SYSTEMS: Could not be taken. CURRENT MEDICATIONS: Reviewed and include Cleviprex and Norvasc. Doses and rest of medications reviewed. PHYSICAL EXAMINATION: VITAL SIGNS: Pulse is 70, blood pressure is 160/83, respirations 16. HEENT: Conjunctivae normal. NECK: No JVD. CARDIOVASCULAR: S1, S2. RESPIRATION: Breath sounds diminished at the bases. Scattered rhonchi. ABDOMEN: Soft, nontender. LEGS: No edema. NERVOUS SYSTEM: No focal deficits. LABORATORY DATA: Accu-Cheks are noted. Other labs are noted. Vent settings are reviewed. Creatinine 3.09. ASSESSMENT: 1. Anoxic brain injury, possibly secondary to prolonged cardiorespiratory arrest. 2. Possible aspiration pneumonia and sepsis with Klebsiella oxytoca and acute hypoxic respiratory failure with mechanical ventilation. 3. Diabetes mellitus type 2, uncontrolled, on IV insulin drip. 4. Acute urinary tract infection. 5. Hypertension. 6. History of cerebrovascular accident. 7. History of deep venous thrombosis. 8. Multiple medical issues. 9. No code, no CPR, no vent. RECOMMENDATIONS AND DISCUSSION: I recommend to continue current management and continue with the rest of the medications. The patient's condition is not improving. Multiple consultants are following the patient closely including Nephrology. Closely follow with Pulmonary. Further recommendations to follow. His prognosis is guarded. Neurologist ordered repeat EEG and CT of the brain. MMODL / IJN: [id number] /
[2022-06-13 04:22] LABS: Glucose,Whole Blood 176 mg/dL (70-110)
[2022-06-13] MEDS: INSULIN REGULAR 100 UNIT in SODIUM CHLORIDE 0.9% 100 ML IV SCH (04:39)
[2022-06-13 05:09] LABS: Glucose,Whole Blood 173 mg/dL (70-110)
[2022-06-13 05:57] LABS: ABG Base Excess -4.9 mmol/L; ABG HCO3 20 mmol/L (21-25); ABG Hematocrit 33 % (34.0-46.0); ABG PCO2 35 mmHg (35-45); ABG PH 7.38 (7.35-7.45); ABG PO2 101 mmHg (83-108); ABG TCO2 21 mmol/L (19-24); Allen Test Performed? Yes
[2022-06-13 07:04] LABS: Glucose,Whole Blood 187 mg/dL (70-110)
--- NOTE | 2022-06-13 07:04 | XR ---
EXAMINATION TYPE: XR chest 1V portable DATE OF EXAM: 06/13/2022 5:43 AM COMPARISON: Chest radiographs from 06/12/2022 TECHNIQUE: XR chest 1V portable Portable AP radiograph of the chest. CLINICAL INDICATION:Male, 71 years old with history of Tube placement; FINDINGS: Lungs/Pleura: Low lung volumes are present. There is no evidence of pleural effusion, focal consolida tion, or pneumothorax. Pulmonary vascularity: Unremarkable. Heart/mediastinum: Cardiomediastinal silhouette is enlarged and stable. Musculoskeletal: No acute osseous pathology. Other findings: None Lines/Tubes: Endotracheal tube with distal tip 4.4 cm above the sathya Nasogastric tube with its distal tip and side-port projecting under the diaphragm. Left central venous catheter with distal tip at the brachiocephalic vein. IMPRESSION: 1. Low lung volumes with generalized hazy appearance which could represent pulmonary edema versus at electasis. 2. Support line and tubes in appropriate position.
[2022-06-13 08:11] LABS: Glucose,Whole Blood 194 mg/dL (70-110)
[2022-06-13] MEDS: METOPROLOL TARTRATE 50 MG TAB PO SCH (08:15)
[2022-06-13] MEDS: ENOXAPARIN 30 MG/0.3 ML SYRINGE SQ SCH (08:15)
[2022-06-13] MEDS: amLODIPine 10 MG TAB PO SCH (08:15)
[2022-06-13] MEDS: hydrALAZINE HCL 25 MG TAB PO SCH (08:15)
[2022-06-13] MEDS: CHLORHEXIDINE GLUCONATE 15 ML CUP MUCOUS MEM SCH (08:15)
[2022-06-13] MEDS: PANTOPRAZOLE 40 MG/10 ML VIAL IV SCH (08:15)
[2022-06-13 08:21] LABS: Calcium 7.3 mg/dL (8.4-10.2); Magnesium 2.4 mg/dL (1.6-2.3); Potassium 3.8 mmol/L (3.5-5.1)
[2022-06-13 09:12] LABS: Glucose,Whole Blood 187 mg/dL (70-110)
[2022-06-13] MEDS: SODIUM CHLORIDE 0.45% 1,000 ML IV SCH (09:18)
[2022-06-13] MEDS ORDERED: SODIUM BICARB 8.4% 50 ML SYR (1 MEQ/ML) IV STA (09:32)
[2022-06-13 09:34] LABS: Basophils % (A) 0 %; Eosinophils # (A) 0.6 k/uL (0-0.7); Eosinophils % (A) 6 %; HCT 32.5 % (39.0-53.0); HGB 10.8 gm/dL (13.0-17.5); Lymphocytes # (A) 1.3 k/uL (1.0-4.8); Lymphocytes % (A) 12 %; MCH 30.1 pg (25.0-35.0); MCHC 33.2 g/dL (31.0-37.0); MCV 90.5 fL (80.0-100.0); Mean Platelet Volume 9.2; Monocytes # (A) 0.7 k/uL (0-1.0); Monocytes % (A) 6 %; Neutrophils # (A) 8.2 k/uL (1.3-7.7); Neutrophils % (A) 75 %; Platelet Count 210 k/uL (150-450); RDW 14.7 % (11.5-15.5)
--- NOTE | 2022-06-13 09:39 | P.PN ---
Subjective Patient is seen in follow-up for acute kidney injury. Renal function stable. Nonoliguric. Receiving IV fluids as well as tube feeds. Intubated. On 20% FiO2. Vital signs are stable. HEENT: Intubated. LUNGS: Breath sounds decreased. HEART: Rate and Rhythm are regular. ABDOMEN: Soft, no distention. EXTREMITITES: No edema. Objective - Vital Signs Vital signs: Vital Signs Temp 98.6 F 06/13/22 08:00 Pulse 65 06/13/22 09:00 Resp 16 06/13/22 09:00 BP 121/49 06/12/22 03:00 Pulse Ox 97 06/13/22 09:00 FiO2 21 06/13/22 08:00 Intake & Output 06/12/22 06/13/22 06/13/22 18:59 06:59 18:59 Intake Total 2444.226 1746.574 792.675 Output Total 625 850 280 Balance 1819.226 896.574 512.675 Weight 100 kg 106.2 kg Intake: IV 876 803 219 0.9 Pressure Bag 36 33 9 Sodium Chloride 0.45% 1, 840 770 210 000 ml @ 70 mls/hr IV . [id number] [facility] Rx#:[id number] Intake, IV Titration 472.226 107.574 174.675 Amount Clevidipine Butyrate 25 108.299 71.501 57.566 mg In Empty Bag 1 bag @ 1 MG/HR 2 mls/hr IV .Q24H [facility] Rx#:[id number] Insulin Regular 100 unit 63.927 36.073 17.109 In Sodium Chloride 0.9% 100 ml @ Titrate IV .Q0M [facility] Rx#:[id number] Piperacillin-Tazobactam 3 200 100 .375 gm In Sodium Chloride 0.9% 100 ml @ 25 mls/hr IVPB Q8HR [facility] Rx# :[id number] levETIRAcetam IV 500 mg 100 In Sodium Chloride 0.9% 100 ml @ 400 mls/hr IVPB Q12HR [facility] Rx#:[id number] Tube Feeding 636 636 159 Other 460 200 240 Output: Urine 625 850 280 Other: Voiding Method Indwelling Catheter Indwelling Catheter ABP, PAP, CO, CI - Last Documented Arterial Blood Pressure 157/52 - Labs CBC & Chem 7: 06/12/22 04:46 06/13/22 07:50 Labs: Abnormal Lab Results - Last 24 Hours (Table) 06/12/22 06/12/22 06/12/22 Range/Units 10:01 11:08 12:36 ABG HCO3 (21-25) mmol/L ABG O2 Saturation (94-97) % ABG Hematocrit (34.0-46.0) % Hemoglobin (13.0-17.5) gm/dL Chloride (98-107) mmol/L Carbon Dioxide (22-30) mmol/L BUN (9-20) mg/dL Creatinine (0.66-1.25) mg/dL Glucose (74-99) mg/dL POC Glucose (mg/dL) 174 H 174 H 147 H (70-110) mg/dL Calcium (8.4-10.2) mg/dL Magnesium (1.6-2.3) mg/dL 06/12/22 06/12/22 06/12/22 Range/Units 14:11 15:36 16:38 ABG HCO3 (21-25) mmol/L ABG O2 Saturation (94-97) % ABG Hematocrit (34.0-46.0) % Hemoglobin (13.0-17.5) gm/dL Chloride (98-107) mmol/L Carbon Dioxide (22-30) mmol/L BUN (9-20) mg/dL Creatinine (0.66-1.25) mg/dL Glucose (74-99) mg/dL POC Glucose (mg/dL) 142 H 121 H 180 H (70-110) mg/dL Calcium (8.4-10.2) mg/dL Magnesium (1.6-2.3) mg/dL 06/12/22 06/12/22 06/12/22 Range/Units 17:44 18:51 19:48 ABG HCO3 (21-25) mmol/L ABG O2 Saturation (94-97) % ABG Hematocrit (34.0-46.0) % Hemoglobin (13.0-17.5) gm/dL Chloride (98-107) mmol/L Carbon Dioxide (22-30) mmol/L BUN (9-20) mg/dL Creatinine (0.66-1.25) mg/dL Glucose (74-99) mg/dL POC Glucose (mg/dL) 192 H 177 H 195 H (70-110) mg/dL Calcium (8.4-10.2) mg/dL Magnesium (1.6-2.3) mg/dL 06/12/22 06/12/22 06/13/22 Range/Units 21:05 23:13 00:14 ABG HCO3 (21-25) mmol/L ABG O2 Saturation (94-97) % ABG Hematocrit (34.0-46.0) % Hemoglobin (13.0-17.5) gm/dL Chloride (98-107) mmol/L Carbon Dioxide (22-30) mmol/L BUN (9-20) mg/dL Creatinine (0.66-1.25) mg/dL Glucose (74-99) mg/dL POC Glucose (mg/dL) 189 H 211 H 178 H (70-110) mg/dL Calcium (8.4-10.2) mg/dL Magnesium (1.6-2.3) mg/dL 06/13/22 06/13/22 06/13/22 Range/Units 01:14 02:01 03:09 ABG HCO3 (21-25) mmol/L ABG O2 Saturation (94-97) % ABG Hematocrit (34.0-46.0) % Hemoglobin (13.0-17.5) gm/dL Chloride (98-107) mmol/L Carbon Dioxide (22-30) mmol/L BUN (9-20) mg/dL Creatinine (0.66-1.25) mg/dL Glucose (74-99) mg/dL POC Glucose (mg/dL) 171 H 173 H 175 H (70-110) mg/dL Calcium (8.4-10.2) mg/dL Magnesium (1.6-2.3) mg/dL 06/13/22 06/13/22 06/13/22 Range/Units 04:19 05:07 05:54 ABG HCO3 20 L (21-25) mmol/L ABG O2 Saturation 99.0 H (94-97) % ABG Hematocrit 33 L (34.0-46.0) % Hemoglobin 10.8 L (13.0-17.5) gm/dL Chloride (98-107) mmol/L Carbon Dioxide (22-30) mmol/L BUN (9-20) mg/dL Creatinine (0.66-1.25) mg/dL Glucose (74-99) mg/dL POC Glucose (mg/dL) 176 H 173 H (70-110) mg/dL Calcium (8.4-10.2) mg/dL Magnesium (1.6-2.3) mg/dL 06/13/22 06/13/22 06/13/22 Range/Units 07:03 07:50 08:09 ABG HCO3 (21-25) mmol/L ABG O2 Saturation (94-97) % ABG Hematocrit (34.0-46.0) % Hemoglobin (13.0-17.5) gm/dL Chloride 115 H (98-107) mmol/L Carbon Dioxide 20 L (22-30) mmol/L BUN 77 H (9-20) mg/dL Creatinine 3.00 H (0.66-1.25) mg/dL Glucose 197 H (74-99) mg/dL POC Glucose (mg/dL) 187 H 194 H (70-110) mg/dL Calcium 7.3 L (8.4-10.2) mg/dL Magnesium 2.4 H (1.6-2.3) mg/dL 06/13/22 Range/Units 09:10 ABG HCO3 (21-25) mmol/L ABG O2 Saturation (94-97) % ABG Hematocrit (34.0-46.0) % Hemoglobin (13.0-17.5) gm/dL Chloride (98-107) mmol/L Carbon Dioxide (22-30) mmol/L BUN (9-20) mg/dL Creatinine (0.66-1.25) mg/dL Glucose (74-99) mg/dL POC Glucose (mg/dL) 187 H (70-110) mg/dL Calcium (8.4-10.2) mg/dL Magnesium (1.6-2.3) mg/dL Microbiology - Last 24 Hours (Table) 06/09/22 13:40 Blood Culture - Preliminary Blood No Growth after 72 hours 06/09/22 13:40 Blood Culture - Preliminary Blood No Growth after 72 hours Assessment and Plan Plan: Assessment: 1. Acute kidney injury secondary to hemodynamic ATN. Nonoliguric. Creatinine stable at 3.0 today. Unknown baseline renal function. 2. Hypernatremia from lack of oral water intake. 3. Anoxic encephalopathy. 4. Status post cardiac arrest. 5. UTI and pneumonia on antibiotics. ID following. 6. Metabolic acidosis secondary to acute kidney injury. Plan: Maintain IV fluids. Maintain tube feeds with 200 mL every 6 hours water flushes. 2 A of sodium bicarb IV push today. Check UA and renal ultrasound. Comfort measures being considered.
--- NOTE | 2022-06-13 10:41 | P.PN ---
Subjective Progress Note Date: 06/13/22 Principal diagnosis: Respiratory failure. 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 On 06/05/2022 patient was a witnessed collapse at home per his family. The exact details of resuscitation efforts, total downtime is unknown to us from the available documentation sent over from [facility], however there is a mention that patient had multiple unsuccessful intubation attempts per EMS related to a edematous upper airways. He was intubated by ER physician upon arrival to the [facility] emergency department. Per the nursing staff the reports starting CPR, and when EMS arrived the monitor showed sinus tachycardia. ACLS interventions are not known to us other than intubation attempts. Patient has history of multiple comorbid conditions including CVA, hypertension, poorly controlled diabetes mellitus type 2, previous history of DVT on Xarelto. Computed tomography scan of the brain showed no evidence for acute intracranial hemorrhage, no acute infarct, mass, mass effect or midline shift. There was mild white matter hypodensity relating to chronic small vessel ischemic disease. chest x-ray showed evidence of scattered septal opacities throughout the lungs possibly related to pulmonary edema. Patient was started on empiric antibiotics. He was started on IV Decadron related to upper airway edema. Computed tomography scan of the neck was reportedly negative. Patient's urine culture was reported to be positive for enterococci, and his sputum was positive for Klebsiella species. We'll try to obtain further information. Initial laboratory evaluation showed white blood cell count of 16.7, hemoglobin of 13.2, platelet count is 245, sodium is 137, potassium is 5.4, chloride is 100, CO2 is 21.8, BUN is 47, creatinine is 3.0, glucose was 408, calcium is 8.5, magnesium is 1.9, AST was 39, ALT was 26, alk phos was 71, total bilirubin was 1.2, INR was 1.07, urinalysis showed 2+ glucose, 1+ ketones, 3+ blood, 1+ leukocyte esterase, greater than 25 white blood cells, first set of troponins was less than 0.020, hemoglobin A1c was 9.1, TSH was 3.072. His antibiotic coverage was switched to Zosyn, renal ultrasound shows no hydronephrosis bilaterally. Follow-up computed tomography scan of the brain yesterday on 06/08/2022 showed no acute intracranial hemorrhage or midline shift, mild to moderate diffuse ventricular and sulcal prominence consistent with diffuse age-related cerebral atrophy, moderate low attenuation in the periventricular white matter consistent with chronic small vessel ischemic change, and near complete opacification of the right sphenoid sinus which was nonspecific. Patient has not been on any sedation, he remains intubated, according to the nursing staff patient was given a spontaneous breathing trial yesterday. He is comatose after being 2 days off sedation, he is withdrawing to pain, he is on assist-control mode of ventilation right now, he was transferred to the [facility] intensive care unit for neurology evaluation and treatment for possibility of anoxic brain injury. He was started on Keppra, stat EEG is pending. On arrival patient is on assist-control mode with a rate of 10, tidal volume is 500, FiO2 of 30% and PEEP of 5. He is on D5 W at a rate of 75 ML per hour for hyponatremia with a sodium of 153, no other drips. His propofol has been off for over 48 hours. No other sedatives, narcotics or hypnotics were given during that time. Blood gas was obtained on those settings showing pO2 of 143, pCO2 of 37, and pH of 7.44 and this was done on FiO2 of 30%. The rest of the blood work is pending at this time Progress note dated 06/10/2022. This patient was transferred from [facility] yesterday, to our intensive care unit. The patient was poorly responsive/unresponsive, and there was some concern about anoxic brain injury. The patient did have a cardiopulmonary arrest. Unfortunately, the patient was not waking up over there, and because it did not have neurology coverage see her, the patient was transferred here, by my partner. He was intubated on June 05. Currently, he remains on mechanical ventilator. Yesterday, we saw him when he came over and placed a left radial art line. He really had a central line. Neurology was consulted. EEG showed diffuse slowing. Norvasc was initiated today. Ventilator settings include the volume assist control, rate 16, tidal volume 500, FiO2 30%, and PEEP of 5. Blood gases show pO2 157, pCO2 34, pH is 7.42. The FiO2 was reduced down to 25%. The patient's getting D5W at 75 mL an hour, Cleveprex at 12 mg an hour, saline at 20 mL an hour, and vital high protein at 20 mL an hour, with a goal of 53. Labs today include a white count 10.6, hemoglobin 11.8, hematocrit 34.9, and platelet count 290,000. Sodium 145, potassium 3.8, chlorides 117, CO2 21, BUN 62, creatinine 2.59. Albumin is 2.6. Chest x-ray looks surprisingly normal, with a mildly elevated right diaphragm. The report from the outside hospital was sent the urine was positive for enterococci his sputum was positive for Klebsiella. Progress note dated 06/11/2022. This is a 71-year-old male transferred from [facility] because of cardiac arrest. The patient likely sustained significant anoxic brain injury. The patient is now a DO NOT RESUSCITATE patient. The family is apparently considering comfort measures. He was intubated on June 05. Remains on mechanical ventilator. He is on volume assist control, rate 16, tidal volume 500, FiO2 25%, and PEEP of 5. Arterial blood gases show pO2 130, pCO2 of 33, and pH is 7.42. The FiO2 was reduced down to 21%. Currently, the patient is on half-normal saline at 70 mL an hour, Cleveprex at 5 mg an hour, and insulin drip at 3.6 units an hour. His mental status has not improved. EEG showed diffuse slowing, consistent with encephalopathy. Labs today show white count of 13.1, hemoglobin 11.3, hematocrit 34.1, and platelet count of 206,000. Sodium 146, potassium 3.7, chlorides 1:15, CO2 20, BUN 73, creatinine 3.01. Chest x-ray is stable, and is currently on Zosyn for a urine that was positive for enterococci and sputum, which was positive for Klebsiella. Progress note dated 06/12/2022. 71-year-old male transferred from [facility], status post cardiac arrest, with anoxic brain injury. The patient is now a DO NOT RESUSCITATE patient. The patient is unresponsive, and has had no improvement in his neurologic status. The family's considering comfort measures. Today, he'll have a repeat EEG, and CAT scan as per neurology. He remains on the mechanical ventilator. He is on volume assist control, rate 16, tidal volume 500, FiO2 21%, and PEEP of 5. Arterial blood gases show pO2 105, pCO2 35, and pH is 7.39. Is getting half-normal saline at 70 mL an hour, Cleveprex at 8 mg an hour, insulin at 6.4 units an hour, and vital high protein at 53 mL an hour. White co unt 12.6, hemoglobin 11.4, hematocrit 33.9, platelet count 206,000. Sodium 144, potassium 3.7, chlorides 113, CO2 19, anion gap 12, BUN 75, and creatinine 3.09. Chest x-ray from today shows proper placement of tubes and lines, and essentially no change from prior chest x-rays. Lung canela are actually relatively clear. Progress note dated 06/13/2022. 71-year-old male transferred from [facility], status post [id number], cardiac arrest, with significant and suspected anoxic brain injury. The patient is now a DO NOT RESUSCITATE patient. The patient's family is considering the possibility of comfort measures, versus tracheostomy and PEG tube placement, and transferred to long-term acute care. The patient remains on mechanical ventilator. There's been no improvement in his neurologic status. He is on volume assist control, rate 16, tidal volume 500, FiO2 21%, and PEEP of 5. Blood gases show pO2 101, pCO2 35, and pH is 7.38. Remains on Cleveprex at 3 mg an hour, insulin drip at 5.3 units an hour, saline at 70 mL an hour and vital high protein at 53 mL an hour, which is his goal. Yesterday, he had a repeat brain CT which was unchanged. In addition, EEG showed diffuse slowing, with moderate to severe, and also unchanged from a prior EEG. White count 11, hemoglobin 10.8, hematocrit 32.5, and platelet count 210,000. Sodium 145, potassium re-0.8, chlorides 1:15, CO2 20, BUN 77, and creatinine 3. Microbiologic studies are negative. Chest x-ray my opinion is essentially unchanged. Objective - Vital Signs Vital signs: Vital Signs Temp 98.6 F 06/13/22 08:00 Pulse 68 06/13/22 10:00 Resp 16 06/13/22 10:00 BP 121/49 06/12/22 03:00 Pulse Ox 97 06/13/22 10:00 FiO2 21 06/13/22 08:00 Intake & Output 06/12/22 06/13/22 06/13/22 18:59 06:59 18:59 Intake Total 2444.226 1746.574 918.675 Output Total 625 850 340 Balance 1819.226 896.574 578.675 Weight 100 kg 106.2 kg Intake: IV 876 803 292 0.9 Pressure Bag 36 33 12 Sodium Chloride 0.45% 1, 840 770 280 000 ml @ 70 mls/hr IV . [id number] [facility] Rx#:[id number] Intake, IV Titration 472.226 107.574 174.675 Amount Clevidipine Butyrate 25 108.299 71.501 57.566 mg In Empty Bag 1 bag @ 1 MG/HR 2 mls/hr IV .Q24H LE[facility] Rx#:[id number] Insulin Regular 100 unit 63.927 36.073 17.109 In Sodium Chloride 0.9% 100 ml @ Titrate IV .Q0M [facility] Rx#:[id number] Piperacillin-Tazobactam 3 200 100 .375 gm In Sodium Chloride 0.9% 100 ml @ 25 mls/hr IVPB Q8HR [facility] Rx# :[id number] levETIRAcetam IV 500 mg 100 In Sodium Chloride 0.9% 100 ml @ 400 mls/hr IVPB Q12HR [facility] Rx#:[id number] Tube Feeding 636 636 212 Other 460 200 240 Output: Urine 625 850 340 Other: Voiding Method Indwelling Catheter Indwelling Catheter Indwelling Catheter ABP, PAP, CO, CI - Last Documented Arterial Blood Pressure 159/56 - Exam No acute distress, not on any sedation, and only responsive to deep pain. No gag reflex. HEENT examination is grossly unremarkable. Oral endotracheal tube noted. Neck supple. Full range of motion. No adenopathy thyromegaly or neck vein distention. Cardiovascular examination reveals regular rhythm rate. S1-S2 normal. No S3 or S4. No discernible murmur noted. Heart rate 68 bpm. Lungs reveal mostly clear breath sounds. Minimal scattered rhonchi. No wheezes or crackles. Saturations 97 %. Abdomen soft with bowel sounds. No masses. Extremities are intact. No cyanosis clubbing or edema. Skin reveals some bilateral lower extremity chronic venous changes. Neurologic examination is is unchanged. - Labs CBC & Chem 7: 06/13/22 07:50 06/13/22 07:50 Labs: Abnormal Lab Results - Last 24 Hours (Table) 06/12/22 06/12/22 06/12/22 Range/Units 11:08 12:36 14:11 WBC (3.8-10.6) k/uL RBC (4.30-5.90) m/uL Hgb (13.0-17.5) gm/dL Hct (39.0-53.0) % Neutrophils # (1.3-7.7) k/uL ABG HCO3 (21-25) mmol/L ABG O2 Saturation (94-97) % ABG Hematocrit (34.0-46.0) % Hemoglobin (13.0-17.5) gm/dL Chloride (98-107) mmol/L Carbon Dioxide (22-30) mmol/L BUN (9-20) mg/dL Creatinine (0.66-1.25) mg/dL Glucose (74-99) mg/dL POC Glucose (mg/dL) 174 H 147 H 142 H (70-110) mg/dL Calcium (8.4-10.2) mg/dL Magnesium (1.6-2.3) mg/dL 06/12/22 06/12/22 06/12/22 Range/Units 15:36 16:38 17:44 WBC (3.8-10.6) k/uL RBC (4.30-5.90) m/uL Hgb (13.0-17.5) gm/dL Hct (39.0-53.0) % Neutrophils # (1.3-7.7) k/uL ABG HCO3 (21-25) mmol/L ABG O2 Saturation (94-97) % ABG Hematocrit (34.0-46.0) % Hemoglobin (13.0-17.5) gm/dL Chloride (98-107) mmol/L Carbon Dioxide (22-30) mmol/L BUN (9-20) mg/dL Creatinine (0.66-1.25) mg/dL Glucose (74-99) mg/dL POC Glucose (mg/dL) 121 H 180 H 192 H (70-110) mg/dL Calcium (8.4-10.2) mg/dL Magnesium (1.6-2.3) mg/dL 06/12/22 06/12/22 06/12/22 Range/Units 18:51 19:48 21:05 WBC (3.8-10.6) k/uL RBC (4.30-5.90) m/uL Hgb (13.0-17.5) gm/dL Hct (39.0-53.0) % Neutrophils # (1.3-7.7) k/uL ABG HCO3 (21-25) mmol/L ABG O2 Saturation (94-97) % ABG Hematocrit (34.0-46.0) % Hemoglobin (13.0-17.5) gm/dL Chloride (98-107) mmol/L Carbon Dioxide (22-30) mmol/L BUN (9-20) mg/dL Creatinine (0.66-1.25) mg/dL Glucose (74-99) mg/dL POC Glucose (mg/dL) 177 H 195 H 189 H (70-110) mg/dL Calcium (8.4-10.2) mg/dL Magnesium (1.6-2.3) mg/dL 06/12/22 06/13/22 06/13/22 Range/Units 23:13 00:14 01:14 WBC (3.8-10.6) k/uL RBC (4.30-5.90) m/uL Hgb (13.0-17.5) gm/dL Hct (39.0-53.0) % Neutrophils # (1.3-7.7) k/uL ABG HCO3 (21-25) mmol/L ABG O2 Saturation (94-97) % ABG Hematocrit (34.0-46.0) % Hemoglobin (13.0-17.5) gm/dL Chloride (98-107) mmol/L Carbon Dioxide (22-30) mmol/L BUN (9-20) mg/dL Creatinine (0.66-1.25) mg/dL Glucose (74-99) mg/dL POC Glucose (mg/dL) 211 H 178 H 171 H (70-110) mg/dL Calcium (8.4-10.2) mg/dL Magnesium (1.6-2.3) mg/dL 0806/13/22 06/13/22 Range/Units 02:01 03:09 04:19 WBC (3.8-10.6) k/uL RBC (4.30-5.90) m/uL Hgb (13.0-17.5) gm/dL Hct (39.0-53.0) % Neutrophils # (1.3-7.7) k/uL ABG HCO3 (21-25) mmol/L ABG O2 Saturation (94-97) % ABG Hematocrit (34.0-46.0) % Hemoglobin (13.0-17.5) gm/dL Chloride (98-107) mmol/L Carbon Dioxide (22-30) mmol/L BUN (9-20) mg/dL Creatinine (0.66-1.25) mg/dL Glucose (74-99) mg/dL POC Glucose (mg/dL) 173 H 175 H 176 H (70-110) mg/dL Calcium (8.4-10.2) mg/dL Magnesium (1.6-2.3) mg/dL 06/13/22 06/13/22 06/13/22 Range/Units 05:07 05:54 07:03 WBC (3.8-10.6) k/uL RBC (4.30-5.90) m/uL Hgb (13.0-17.5) gm/dL Hct (39.0-53.0) % Neutrophils # (1.3-7.7) k/uL ABG HCO3 20 L (21-25) mmol/L ABG O2 Saturation 99.0 H (94-97) % ABG Hematocrit 33 L (34.0-46.0) % Hemoglobin 10.8 L (13.0-17.5) gm/dL Chloride (98-107) mmol/L Carbon Dioxide (22-30) mmol/L BUN (9-20) mg/dL Creatinine (0.66-1.25) mg/dL Glucose (74-99) mg/dL POC Glucose (mg/dL) 173 H 187 H (70-110) mg/dL Calcium (8.4-10.2) mg/dL Magnesium (1.6-2.3) mg/dL 06/13/22 06/13/22 06/13/22 Range/Units 07:50 07:50 08:09 WBC 11.0 H (3.8-10.6) k/uL RBC 3.60 L (4.30-5.90) m/uL Hgb 10.8 L (13.0-17.5) gm/dL Hct 32.5 L (39.0-53.0) % Neutrophils # 8.2 H (1.3-7.7) k/uL ABG HCO3 (21-25) mmol/L ABG O2 Saturation (94-97) % ABG Hematocrit (34.0-46.0) % Hemoglobin (13.0-17.5) gm/dL Chloride 115 H (98-107) mmol/L Carbon Dioxide 20 L (22-30) mmol/L BUN 77 H (9-20) mg/dL Creatinine 3.00 H (0.66-1.25) mg/dL Glucose 197 H (74-99) mg/dL POC Glucose (mg/dL) 194 H (70-110) mg/dL Calcium 7.3 L (8.4-10.2) mg/dL Magnesium 2.4 H (1.6-2.3) mg/dL 06/13/22 Range/Units 09:10 WBC (3.8-10.6) k/uL RBC (4.30-5.90) m/uL Hgb (13.0-17.5) gm/dL Hct (39.0-53.0) % Neutrophils # (1.3-7.7) k/uL ABG HCO3 (21-25) mmol/L ABG O2 Saturation (94-97) % ABG Hematocrit (34.0-46.0) % Hemoglobin (13.0-17.5) gm/dL Chloride (98-107) mmol/L Carbon Dioxide (22-30) mmol/L BUN (9-20) mg/dL Creatinine (0.66-1.25) mg/dL Glucose (74-99) mg/dL POC Glucose (mg/dL) 187 H (70-110) mg/dL Calcium (8.4-10.2) mg/dL Magnesium (1.6-2.3) mg/dL Microbiology - Last 24 Hours (Table) 06/09/22 13:40 Blood Culture - Preliminary Blood No Growth after 72 hours 06/09/22 13:40 Blood Culture - Preliminary Blood No Growth after 72 hours Assessment and Plan Assessment: Acute anoxic brain injury related to acute cardiopulmonary arrest. Patient was admitted to [facility] on 06/05/2022 after suffering of witnessed collapse per his family, with initiation of CPR, difficult intubation out in the field due to upper airway edema. Status post intubation and mechanical ventilation on 06/05/2022. Acute hypoxic respiratory failure possibly related to aspiration pneumonia and sepsis. Sputum cultures showed Klebsiella species. Acute urinary tract infection related to enterococcus species currently on Zosyn. Acute kidney injury. Poorly controlled diabetes mellitus type 2. Hypertension. Previous history of DVT. History of CVA Plan: Plan dated 06/10/2022. The patient is being nourished. We will increase tube feedings to goal. The FiO2 on the ventilator was reduced down to 25%. We will initiate Norvasc today, which she was taking at home, and weaning the Cleveprex. Sodium is much improved. Blood gases are stable. The patient is apparently scheduled for repeat computed tomography scan of the brain today. Neurology was consulted. EEG showed diffuse moderate to severe slowing. This is consistent with anoxic and/or metabolic encephalopathy. If the patient does not improve, consideration of tracheostomy and PEG tube placement will be discussed with family. Plan dated 06/11/2022. The patient is now a DO NOT RESUSCITATE. This is appropriate given the fact that he likely has significant anoxic brain injury, on his examination, and the EEG. The patient remains on Cleveprex for blood pressure control, and insulin for control of blood sugars. Today, his FiO2 was reduced down to 21%. His chest x-ray was normal. Labs, x-rays, and medications are reviewed. Prognosis is very poor. The family is apparently considering withdrawal from life support. No additional recommendations are made at this time. Plan dated 06/12/2022. The patient is now a DO NOT RESUSCITATE patient. Family is considering comfort measures. Neurology has ordered a repeat EEG and computed tomography scan of the brain. Labs, x-rays, and medications are reviewed. The patient remains on Cleveprex for blood pressure control, and insulin, for glucose control. We will continue to follow and make recommendations were appropriate. Obviously, prognosis is very poor. Plan dated 06/13/2022. The patient's overall prognosis remains very poor. The patient is a no code patient. The family is considering tracheostomy/PEG tube placement versus comfort care. The latter is more appropriate given his poor neurologic situ ation. Apparently this has been discussed with the family by neurology. Repeat computed tomography scan of the brain showed no change. Repeat EEG of the brain showed slowing, consistent with anoxic/metabolic encephalopathy. Labs are reviewed. Medications are reviewed. We will continue to follow. Prognosis obviously is very poor. Time with Patient: Greater than 30
[2022-06-13 11:13] LABS: Glucose,Whole Blood 176 mg/dL (70-110)
[2022-06-13 11:56] LABS: Appearance,Urine Clear (Clear); Bacteria,Urine Rare /hpf; Bilirubin,Urine Negative (Negative); Blood,Urine Small (Negative); Color,Urine Light Yellow; Glucose,Urine (UA) Trace (Negative); Ketones,Urine Negative (Negative); Leukocyte Esterase,Urine Small (Negative); Mucus,Urine Rare /hpf; Nitrite,Urine Negative (Negative); PH, Urine 5.5 (5.0-8.0); Protein,Urine 2+ (Negative); RBC,Urine 3 /hpf (0-5); Specific Gravity,Urine 1.015 (1.001-1.035); Squamous Epithelial Cell,Urine <1 /hpf (0-4); Urobilinogen,Urine <2.0 mg/dL (<2.0); WBC,Urine 17 /hpf (0-5)
[2022-06-13 12:35] LABS: Glucose,Whole Blood 171 mg/dL (70-110)
[2022-06-13 13:56] LABS: Glucose,Whole Blood 156 mg/dL (70-110)
--- NOTE | 2022-06-13 15:18 | US ---
EXAMINATION TYPE: US kidneys/renal and bladder DATE OF EXAM: 06/13/2022 COMPARISON: Outside renal ultrasound in PACS 06/08/22. CLINICAL HISTORY: peter. PETER. *Exam done portable, limited and difficult exam. Patient on ventilator. EXAM MEASUREMENTS: Right Kidney: 11.8 x 6.0 x 5.0 cm Left Kidney: 13.2 x 5.8 6.1 cm Right Kidney: No hydronephrosis or masses seen Left Kidney: Appears enlarged, although measurement is limited. Limited visibility of upper pole. No hydronephrosis or masses seen . Bladder: Catheter in place, undistended. Not evaluated. Bilateral Jets seen: No IMPRESSION: No evidence of renal mass or obstruction. No adverse change compared to previous exam.
[2022-06-13 15:27] LABS: Glucose,Whole Blood 151 mg/dL (70-110)
[2022-06-13 16:49] LABS: Glucose,Whole Blood 128 mg/dL (70-110)
[2022-06-13 18:17] LABS: Glucose,Whole Blood 167 mg/dL (70-110)
[2022-06-13] MEDS ORDERED: MORPHINE SULFATE 2 MG/ML SYRINGE IV PRN (19:03)
[2022-06-13] MEDS ORDERED: DRY MOUTH SPRAY 44.3 SPRAY/44.3 ML SPRAY MUCOUS MEM PRN (19:03)
[2022-06-13] MEDS ORDERED: LORazepam 2 MG/ML INJ IV PRN (19:03)
[2022-06-13] MEDS ORDERED: ACETAMINOPHEN SUPPOSITORY 650 MG SUPP RECTAL PRN (19:03)
[2022-06-13] MEDS ORDERED: MORPHINE SULFATE 4 MG/ML SYRINGE IV PRN (19:03)
[2022-06-13] MEDS ORDERED: ONDANSETRON 4 MG/2 ML VIAL IVP PRN (19:03)
[2022-06-13] MEDS ORDERED: SCOPOLAMINE 1 MG/72 HR PATCH TRANSDERM SCH (20:00)
[2022-06-13] MEDS: MORPHINE SULFATE (100 MG/2 ML) 100 MG in SODIUM CHLORIDE 0.9% 100 ML IV SCH (20:13)
--- NOTE | 2022-06-13 23:06 | P.PN ---
Subjective Progress Note Date: 06/13/22 Principal diagnosis: Pneumonia Patient is a 71-year male initially presented to [facility] episode of unresponsive cardiac arrest s/p resuscitation intubation and the patient did have evidence of pneumonia sputum was positive for Klebsiella blood culture with staph epi likely contaminant subsequently transferred to [facility] for EEG and neuro evaluation. On today's evaluation that is 06/13/2022 the patient remains to be afebrile, the patient remains to be intubated on the vent FiO2 is stable at 21 %, the patient is hemodynamically stable not requiring any pressor support , the patient been tolerating his tube feeds no diarrhea has been reported , currently waiting for family decision regarding possible comfort care Objective - Vital Signs Vital signs: Vital Signs Temp 98.4 F 06/13/22 12:00 Pulse 74 06/13/22 15:00 Resp 24 06/13/22 15:00 BP 121/49 06/12/22 03:00 Pulse Ox 99 06/13/22 15:00 FiO2 21 06/13/22 12:00 Intake & Output 06/12/22 06/13/22 06/13/22 18:59 06:59 18:59 Intake Total 2444.226 0889.113 2979.975 Output Total 625 850 680 Balance 1819.226 016.660 6148.975 Weight 100 kg 106.2 kg Intake: IV 876 803 657 0.9 Pressure Bag 36 33 27 Sodium Chloride 0.45% 1, 840 770 630 000 ml @ 70 mls/hr IV . [id number] [facility] Rx#:[id number] Intake, IV Titration 472.226 107.574 195.975 Amount Clevidipine Butyrate 25 108.299 71.501 78.866 mg In Empty Bag 1 bag @ 1 MG/HR 2 mls/hr IV .Q24H [facility] Rx#:[id number] Insulin Regular 100 unit 63.927 36.073 17.109 In Sodium Chloride 0.9% 100 ml @ Titrate IV .Q0M [facility] Rx#:[id number] Piperacillin-Tazobactam 3 200 100 .375 gm In Sodium Chloride 0.9% 100 ml @ 25 mls/hr IVPB Q8HR [facility] Rx# :[id number] levETIRAcetam IV 500 mg 100 In Sodium Chloride 0.9% 100 ml @ 400 mls/hr IVPB Q12HR [facility] Rx#:[id number] Tube Feeding 281 966 477 Other 460 200 440 Output: Urine 508 291 680 Other: Voiding Method Indwelling Catheter Indwelling Catheter Indwelling Catheter ABP, PAP, CO, CI - Last Documented Arterial Blood Pressure 169/52 - Exam GENERAL DESCRIPTION: Elderly male intubated on the vent. LUNGS: Unlabored breathing. Decreased breath sound at the base HEART: S1, S2, regular rate and rhythm. No loud murmur ABDOMEN: Soft, no tenderness , guarding or rigidity, no organomegaly EXTREMITIES: No edema of feet. - Labs CBC & Chem 7: 06/13/22 07:50 06/13/22 07:50 Labs: Abnormal Lab Results - Last 24 Hours (Table) 06/12/22 06/12/22 06/12/22 Range/Units 15:36 16:38 17:44 WBC (3.8-10.6) k/uL RBC (4.30-5.90) m/uL Hgb (13.0-17.5) gm/dL Hct (39.0-53.0) % Neutrophils # (1.3-7.7) k/uL ABG HCO3 (21-25) mmol/L ABG O2 Saturation (94-97) % ABG Hematocrit (34.0-46.0) % Hemoglobin (13.0-17.5) gm/dL Chloride (98-107) mmol/L Carbon Dioxide (22-30) mmol/L BUN (9-20) mg/dL Creatinine (0.66-1.25) mg/dL Glucose (74-99) mg/dL POC Glucose (mg/dL) 121 H 180 H 192 H (70-110) mg/dL Calcium (8.4-10.2) mg/dL Magnesium (1.6-2.3) mg/dL Urine Protein (Negative) Urine Glucose (UA) (Negative) Urine Blood (Negative) Ur Leukocyte Esterase (Negative) Urine WBC (0-5) /hpf Urine Bacteria (None) /hpf Urine Mucus (None) /hpf 06/12/22 06/12/22 06/12/22 Range/Units 18:51 19:48 21:05 WBC (3.8-10.6) k/uL RBC (4.30-5.90) m/uL Hgb (13.0-17.5) gm/dL Hct (39.0-53.0) % Neutrophils # (1.3-7.7) k/uL ABG HCO3 (21-25) mmol/L ABG O2 Saturation (94-97) % ABG Hematocrit (34.0-46.0) % Hemoglobin (13.0-17.5) gm/dL Chloride (98-107) mmol/L Carbon Dioxide (22-30) mmol/L BUN (9-20) mg/dL Creatinine (0.66-1.25) mg/dL Glucose (74-99) mg/dL POC Glucose (mg/dL) 177 H 195 H 189 H (70-110) mg/dL Calcium (8.4-10.2) mg/dL Magnesium (1.6-2.3) mg/dL Urine Protein (Negative) Urine Glucose (UA) (Negative) Urine Blood (Negative) Ur Leukocyte Esterase (Negative) Urine WBC (0-5) /hpf Urine Bacteria (None) /hpf Urine Mucus (None) /hpf 06/12/22 06/13/22 06/13/22 Range/Units 23:13 00:14 01:14 WBC (3.8-10.6) k/uL RBC (4.30-5.90) m/uL Hgb (13.0-17.5) gm/dL Hct (39.0-53.0) % Neutrophils # (1.3-7.7) k/uL ABG HCO3 (21-25) mmol/L ABG O2 Saturation (94-97) % ABG Hematocrit (34.0-46.0) % Hemoglobin (13.0-17.5) gm/dL Chloride (98-107) mmol/L Carbon Dioxide (22-30) mmol/L BUN (9-20) mg/dL Creatinine (0.66-1.25) mg/dL Glucose (74-99) mg/dL POC Glucose (mg/dL) 211 H 178 H 171 H (70-110) mg/dL Calcium (8.4-10.2) mg/dL Magnesium (1.6-2.3) mg/dL Urine Protein (Negative) Urine Glucose (UA) (Negative) Urine Blood (Negative) Ur Leukocyte Esterase (Negative) Urine WBC (0-5) /hpf Urine Bacteria (None) /hpf Urine Mucus (None) /hpf 06/13/22 06/13/22 06/13/22 Range/Units 02:01 03:09 04:19 WBC (3.8-10.6) k/uL RBC (4.30-5.90) m/uL Hgb (13.0-17.5) gm/dL Hct (39.0-53.0) % Neutrophils # (1.3-7.7) k/uL ABG HCO3 (21-25) mmol/L ABG O2 Saturation (94-97) % ABG Hematocrit (34.0-46.0) % Hemoglobin (13.0-17.5) gm/dL Chloride (98-107) mmol/L Carbon Dioxide (22-30) mmol/L BUN (9-20) mg/dL Creatinine (0.66-1.25) mg/dL Glucose (74-99) mg/dL POC Glucose (mg/dL) 173 H 175 H 176 H (70-110) mg/dL Calcium (8.4-10.2) mg/dL Magnesium (1.6-2.3) mg/dL Urine Protein (Negative) Urine Glucose (UA) (Negative) Urine Blood (Negative) Ur Leukocyte Esterase (Negative) Urine WBC (0-5) /hpf Urine Bacteria (None) /hpf Urine Mucus (None) /hpf 06/13/22 06/13/22 06/13/22 Range/Units 05:07 05:54 07:03 WBC (3.8-10.6) k/uL RBC (4.30-5.90) m/uL Hgb (13.0-17.5) gm/dL Hct (39.0-53.0) % Neutrophils # (1.3-7.7) k/uL ABG HCO3 20 L (21-25) mmol/L ABG O2 Saturation 99.0 H (94-97) % ABG Hematocrit 33 L (34.0-46.0) % Hemoglobin 10.8 L (13.0-17.5) gm/dL Chloride (98-107) mmol/L Carbon Dioxide (22-30) mmol/L BUN (9-20) mg/dL Creatinine (0.66-1.25) mg/dL Glucose (74-99) mg/dL POC Glucose (mg/dL) 173 H 187 H (70-110) mg/dL Calcium (8.4-10.2) mg/dL Magnesium (1.6-2.3) mg/dL Urine Protein (Negative) Urine Glucose (UA) (Negative) Urine Blood (Negative) Ur Leukocyte Esterase (Negative) Urine WBC (0-5) /hpf Urine Bacteria (None) /hpf Urine Mucus (None) /hpf 06/13/22 06/13/22 06/13/22 Range/Units 07:50 07:50 08:09 WBC 11.0 H (3.8-10.6) k/uL RBC 3.60 L (4.30-5.90) m/uL Hgb 10.8 L (13.0-17.5) gm/dL Hct 32.5 L (39.0-53.0) % Neutrophils # 8.2 H (1.3-7.7) k/uL ABG HCO3 (21-25) mmol/L ABG O2 Saturation (94-97) % ABG Hematocrit (34.0-46.0) % Hemoglobin (13.0-17.5) gm/dL Chloride 115 H (98-107) mmol/L Carbon Dioxide 20 L (22-30) mmol/L BUN 77 H (9-20) mg/dL Creatinine 3.00 H (0.66-1.25) mg/dL Glucose 197 H (74-99) mg/dL POC Glucose (mg/dL) 194 H (70-110) mg/dL Calcium 7.3 L (8.4-10.2) mg/dL Magnesium 2.4 H (1.6-2.3) mg/dL Urine Protein (Negative) Urine Glucose (UA) (Negative) Urine Blood (Negative) Ur Leukocyte Esterase (Negative) Urine WBC (0-5) /hpf Urine Bacteria (None) /hpf Urine Mucus (None) /hpf 06/13/22 06/13/22 06/13/22 Range/Units 09:10 09:45 11:12 WBC (3.8-10.6) k/uL RBC (4.30-5.90) m/uL Hgb (13.0-17.5) gm/dL Hct (39.0-53.0) % Neutrophils # (1.3-7.7) k/uL ABG HCO3 (21-25) mmol/L ABG O2 Saturation (94-97) % ABG Hematocrit (34.0-46.0) % Hemoglobin (13.0-17.5) gm/dL Chloride (98-107) mmol/L Carbon Dioxide (22-30) mmol/L BUN (9-20) mg/dL Creatinine (0.66-1.25) mg/dL Glucose (74-99) mg/dL POC Glucose (mg/dL) 187 H 176 H (70-110) mg/dL Calcium (8.4-10.2) mg/dL Magnesium (1.6-2.3) mg/dL Urine Protein 2+ H (Negative) Urine Glucose (UA) Trace H (Negative) Urine Blood Small H (Negative) Ur Leukocyte Esterase Small H (Negative) Urine WBC 17 H (0-5) /hpf Urine Bacteria Rare H (None) /hpf Urine Mucus Rare H (None) /hpf 06/13/22 06/13/22 06/13/22 Range/Units 12:33 13:53 15:25 WBC (3.8-10.6) k/uL RBC (4.30-5.90) m/uL Hgb (13.0-17.5) gm/dL Hct (39.0-53.0) % Neutrophils # (1.3-7.7) k/uL ABG HCO3 (21-25) mmol/L ABG O2 Saturation (94-97) % ABG Hematocrit (34.0-46.0) % Hemoglobin (13.0-17.5) gm/dL Chloride (98-107) mmol/L Carbon Dioxide (22-30) mmol/L BUN (9-20) mg/dL Creatinine (0.66-1.25) mg/dL Glucose (74-99) mg/dL POC Glucose (mg/dL) 171 H 156 H 151 H (70-110) mg/dL Calcium (8.4-10.2) mg/dL Magnesium (1.6-2.3) mg/dL Urine Protein (Negative) Urine Glucose (UA) (Negative) Urine Blood (Negative) Ur Leukocyte Esterase (Negative) Urine WBC (0-5) /hpf Urine Bacteria (None) /hpf Urine Mucus (None) /hpf Microbiology - Last 24 Hours (Table) 06/09/22 13:40 Blood Culture - Preliminary Blood No Growth after 72 hours 06/09/22 13:40 Blood Culture - Preliminary Blood No Growth after 72 hours Assessment and Plan (1) Aspiration pneumonia Current Visit: Yes Status: Acute Code(s): J69.0 - PNEUMONITIS DUE TO INHALATION OF FOOD AND VOMIT SNOMED Code(s): 414541565 Plan: 1patient with acute respiratory failure which is multifactorial in this patient with initial presentation with unresponsiveness/cardiac arrest and concerning for aspiration pneumonia, the patient sputum were positive for Klebsiella for which the patient is covered with Zosyn, with high clinical suspicious for anoxic encephalopathy and poor prognosis waiting for the family decision regarding possible comfort oriented care at which point antibiotics can be discontinued Time with Patient: Less than 30
--- NOTE | 2022-06-13 23:12 | P.PN ---
Subjective Progress Note Date: 06/13/22 Patient was seen for a follow-up. Patient is off sedation. Clinically no improvement. Continues to be comatose. No seizure-like activity reported. Family members were not present today. Objective - Vital Signs Vital signs: Vital Signs Temp 98.7 F 06/13/22 20:00 Pulse 76 06/13/22 21:00 Resp 16 06/13/22 21:00 BP 121/49 06/12/22 03:00 Pulse Ox 97 06/13/22 21:00 FiO2 21 06/13/22 20:00 Intake & Output 06/13/22 06/13/22 06/14/22 06:59 18:59 06:59 Intake Total 1601.606 5830.146 126.799 Output Total 850 1160 Balance 559.845 0148.146 126.799 Weight 106.2 kg Intake: IV 803 876 73 0.9 Pressure Bag 33 36 3 Sodium Chloride 0.45% 1, 770 840 70 000 ml @ 70 mls/hr IV . [id number] [facility] Rx#:[id number] Intake, IV Titration 107.574 376.146 0.799 Amount Clevidipine Butyrate 25 71.501 118.199 mg In Empty Bag 1 bag @ 1 MG/HR 2 mls/hr IV .Q24H [facility] Rx#:[id number] Insulin Regular 100 unit 36.073 57.947 In Sodium Chloride 0.9% 100 ml @ Titrate IV .Q0M [facility] Rx#:[id number] Morphine Sulfate (100 mg/ 0.799 2 ml) 100 mg In Sodium Chloride 0.9% 100 ml @ 1 MG/HR 1.02 mls/hr IV . Q24H [facility] Rx#:[id number] Piperacillin-Tazobactam 3 200 .375 gm In Sodium Chloride 0.9% 100 ml @ 25 mls/hr IVPB Q8HR [facility] Rx# :[id number] Tube Feeding 636 636 53 Other 200 440 Output: Urine 850 860 Stool 300 Other: Voiding Method Indwelling Catheter Indwelling Catheter Indwelling Catheter ABP, PAP, CO, CI - Last Documented Arterial Blood Pressure 152/46 - Exam Patient is an elderly male, who is comatose, with GCS of 4(E1, V1, M2). Patient is comatose, intubated. Patient is not on any sedation since 06/06/2022. On cranial nerve examination, pupils are small, 3 mm, and the left pupil is very minimally bigger than the right. Both are mildly reactive. Gaze is in midline. Oculocephalics are present. Corneals present. Patient does have gag and cough. Patient is breathing over the ventilator. On muscle strength testing, patient appears to have decerebrate posturing with deep painful stimuli. Response is less and appears worse. No response to painful stimuli in the legs. Deep tendon reflexes are symmetric (right/left) very hypoactive in the lower, plantar are upgoing bilaterally. Sensory to touch cannot be assessed, response to painful stimuli as above. Cerebellar function cannot be assessed. Tone is at least moderately increased bilaterally. Gait not able to be tested. On general examination, there is no carotid bruit or murmur, S1-S2 audible. Chest is clear on consultation. Abdomen is soft nontender. No organomegaly, bowel sounds present. Mild peripheral edema. - Labs CBC & Chem 7: 06/13/22 07:50 06/13/22 07:50 Labs: Abnormal Lab Results - Last 24 Hours (Table) 06/12/22 06/13/22 06/13/22 Range/Units 23:13 00:14 01:14 WBC (3.8-10.6) k/uL RBC (4.30-5.90) m/uL Hgb (13.0-17.5) gm/dL Hct (39.0-53.0) % Neutrophils # (1.3-7.7) k/uL ABG HCO3 (21-25) mmol/L ABG O2 Saturation (94-97) % ABG Hematocrit (34.0-46.0) % Hemoglobin (13.0-17.5) gm/dL Chloride (98-107) mmol/L Carbon Dioxide (22-30) mmol/L BUN (9-20) mg/dL Creatinine (0.66-1.25) mg/dL Glucose (74-99) mg/dL POC Glucose (mg/dL) 211 H 178 H 171 H (70-110) mg/dL Calcium (8.4-10.2) mg/dL Magnesium (1.6-2.3) mg/dL Urine Protein (Negative) Urine Glucose (UA) (Negative) Urine Blood (Negative) Ur Leukocyte Esterase (Negative) Urine WBC (0-5) /hpf Urine Bacteria (None) /hpf Urine Mucus (None) /hpf 06/13/22 06/13/22 06/13/22 Range/Units 02:01 03:09 04:19 WBC (3.8-10.6) k/uL RBC (4.30-5.90) m/uL Hgb (13.0-17.5) gm/dL Hct (39.0-53.0) % Neutrophils # (1.3-7.7) k/uL ABG HCO3 (21-25) mmol/L ABG O2 Saturation (94-97) % ABG Hematocrit (34.0-46.0) % Hemoglobin (13.0-17.5) gm/dL Chloride (98-107) mmol/L Carbon Dioxide (22-30) mmol/L BUN (9-20) mg/dL Creatinine (0.66-1.25) mg/dL Glucose (74-99) mg/dL POC Glucose (mg/dL) 173 H 175 H 176 H (70-110) mg/dL Calcium (8.4-10.2) mg/dL Magnesium (1.6-2.3) mg/dL Urine Protein (Negative) Urine Glucose (UA) (Negative) Urine Blood (Negative) Ur Leukocyte Esterase (Negative) Urine WBC (0-5) /hpf Urine Bacteria (None) /hpf Urine Mucus (None) /hpf 06/13/22 06/13/22 06/13/22 Range/Units 05:07 05:54 07:03 WBC (3.8-10.6) k/uL RBC (4.30-5.90) m/uL Hgb (13.0-17.5) gm/dL Hct (39.0-53.0) % Neutrophils # (1.3-7.7) k/uL ABG HCO3 20 L (21-25) mmol/L ABG O2 Saturation 99.0 H (94-97) % ABG Hematocrit 33 L (34.0-46.0) % Hemoglobin 10.8 L (13.0-17.5) gm/dL Chloride (98-107) mmol/L Carbon Dioxide (22-30) mmol/L BUN (9-20) mg/dL Creatinine (0.66-1.25) mg/dL Glucose (74-99) mg/dL POC Glucose (mg/dL) 173 H 187 H (70-110) mg/dL Calcium (8.4-10.2) mg/dL Magnesium (1.6-2.3) mg/dL Urine Protein (Negative) Urine Glucose (UA) (Negative) Urine Blood (Negative) Ur Leukocyte Esterase (Negative) Urine WBC (0-5) /hpf Urine Bacteria (None) /hpf Urine Mucus (None) /hpf 06/13/22 06/13/22 06/13/22 Range/Units 07:50 07:50 08:09 WBC 11.0 H (3.8-10.6) k/uL RBC 3.60 L (4.30-5.90) m/uL Hgb 10.8 L (13.0-17.5) gm/dL Hct 32.5 L (39.0-53.0) % Neutrophils # 8.2 H (1.3-7.7) k/uL ABG HCO3 (21-25) mmol/L ABG O2 Saturation (94-97) % ABG Hematocrit (34.0-46.0) % Hemoglobin (13.0-17.5) gm/dL Chloride 115 H (98-107) mmol/L Carbon Dioxide 20 L (22-30) mmol/L BUN 77 H (9-20) mg/dL Creatinine 3.00 H (0.66-1.25) mg/dL Glucose 197 H (74-99) mg/dL POC Glucose (mg/dL) 194 H (70-110) mg/dL Calcium 7.3 L (8.4-10.2) mg/dL Magnesium 2.4 H (1.6-2.3) mg/dL Urine Protein (Negative) Urine Glucose (UA) (Negative) Urine Blood (Negative) Ur Leukocyte Esterase (Negative) Urine WBC (0-5) /hpf Urine Bacteria (None) /hpf Urine Mucus (None) /hpf 06/13/22 06/13/22 06/13/22 Range/Units 09:10 09:45 11:12 WBC (3.8-10.6) k/uL RBC (4.30-5.90) m/uL Hgb (13.0-17.5) gm/dL Hct (39.0-53.0) % Neutrophils # (1.3-7.7) k/uL ABG HCO3 (21-25) mmol/L ABG O2 Saturation (94-97) % ABG Hematocrit (34.0-46.0) % Hemoglobin (13.0-17.5) gm/dL Chloride (98-107) mmol/L Carbon Dioxide (22-30) mmol/L BUN (9-20) mg/dL Creatinine (0.66-1.25) mg/dL Glucose (74-99) mg/dL POC Glucose (mg/dL) 187 H 176 H (70-110) mg/dL Calcium (8.4-10.2) mg/dL Magnesium (1.6-2.3) mg/dL Urine Protein 2+ H (Negative) Urine Glucose (UA) Trace H (Negative) Urine Blood Small H (Negative) Ur Leukocyte Esterase Small H (Negative) Urine WBC 17 H (0-5) /hpf Urine Bacteria Rare H (None) /hpf Urine Mucus Rare H (None) /hpf 06/13/22 06/13/22 06/13/22 Range/Units 12:33 13:53 15:25 WBC (3.8-10.6) k/uL RBC (4.30-5.90) m/uL Hgb (13.0-17.5) gm/dL Hct (39.0-53.0) % Neutrophils # (1.3-7.7) k/uL ABG HCO3 (21-25) mmol/L ABG O2 Saturation (94-97) % ABG Hematocrit (34.0-46.0) % Hemoglobin (13.0-17.5) gm/dL Chloride (98-107) mmol/L Carbon Dioxide (22-30) mmol/L BUN (9-20) mg/dL Creatinine (0.66-1.25) mg/dL Glucose (74-99) mg/dL POC Glucose (mg/dL) 171 H 156 H 151 H (70-110) mg/dL Calcium (8.4-10.2) mg/dL Magnesium (1.6-2.3) mg/dL Urine Protein (Negative) Urine Glucose (UA) (Negative) Urine Blood (Negative) Ur Leukocyte Esterase (Negative) Urine WBC (0-5) /hpf Urine Bacteria (None) /hpf Urine Mucus (None) /hpf 06/13/22 06/13/22 Range/Units 16:48 18:16 WBC (3.8-10.6) k/uL RBC (4.30-5.90) m/uL Hgb (13.0-17.5) gm/dL Hct (39.0-53.0) % Neutrophils # (1.3-7.7) k/uL ABG HCO3 (21-25) mmol/L ABG O2 Saturation (94-97) % ABG Hematocrit (34.0-46.0) % Hemoglobin (13.0-17.5) gm/dL Chloride (98-107) mmol/L Carbon Dioxide (22-30) mmol/L BUN (9-20) mg/dL Creatinine (0.66-1.25) mg/dL Glucose (74-99) mg/dL POC Glucose (mg/dL) 128 H 167 H (70-110) mg/dL Calcium (8.4-10.2) mg/dL Magnesium (1.6-2.3) mg/dL Urine Protein (Negative) Urine Glucose (UA) (Negative) Urine Blood (Negative) Ur Leukocyte Esterase (Negative) Urine WBC (0-5) /hpf Urine Bacteria (None) /hpf Urine Mucus (None) /hpf Microbiology - Last 24 Hours (Table) 06/09/22 13:40 Blood Culture - Preliminary Blood No Growth after 96 hours 06/09/22 13:40 Blood Culture - Preliminary Blood No Growth after 96 hours Assessment and Plan Assessment: * Status post cardiac arrest, with unclear downtime. Patient at present comatose with GCS of 4. 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 * Ventilator-dependent respiratory failure, on mechanical ventilation. * Hypertension * Diabetes2 * History of recurrent falls in the last 1 year. Plan: * Patient continues to be comatose, clinically appears worse, as patient is now decerebrate posturing with painful stimuli. * CT head 06/12/2022 showed mild atrophy, no acute process. I personally reviewed computed tomography scan, agree with the findings. * EEG on 06/12/2022 was an abnormal EEG due to background slowing of at least moderate to severe degree. This is suggestive of generalized cerebral dysfunction as can be seen with toxic metabolic encephalopathy or related to diffuse structural brain abnormality. Clinical correlation is recommended. No obvious epileptiform activity was seen. When compared to EEG from 06/09/2022, there is no significant change. * We will discontinue Keppra. * Patient on day 9 postarrest, is comatose (not on any sedatives), which makes prognosis very guarded to poor. * Family has not made decision yet regarding further care. * Supportive care. * Discussed with the nursing staff in detail. * Patient is DO NOT RESUSCITATE.
--- NOTE | 2022-06-14 03:26 | PN ---
PROGRESS NOTE SUBJECTIVE: This 71-year-old gentleman who was admitted with anoxic brain injuries, continued to be vent dependent. The patient also had possible aspiration pneumonia. The patient is on broad spectrum broad-spectrum IV antibiotics at this time. The patient also had kidney failure with creatinine elevated up to 3, which is rather stable over the past several days. Cultures are negative so far. PAST MEDICAL HISTORY: Reviewed. REVIEW OF SYSTEMS: Could not be taken. CURRENT MEDICATIONS: Reviewed include DuoNeb, dose and rest of medication noted. PHYSICAL EXAMINATION: VITAL SIGNS: Pulse is 70, blood pressure is ntd, respirations 16. HEENT: Conjunctivae normal. NECK: No JVD. CARDIOVASCULAR: S1, S2 muffled. RESPIRATIONS: Breath sounds diminished at the bases. A few scattered rhonchi. ABDOMEN: Soft, nontender. NERVOUS SYSTEM: The patient is unresponsive LABS: WBC 11, other labs are reviewed. ASSESSMENT: 1. Anoxic brain injury, possibly secondary to prolonged cardiorespiratory arrest. 2. Possible aspiration pneumonia. 3. Sepsis with Klebsiella oxytoca. 4. Hypoxic respiratory failure, on mechanical ventilation. 5. Diabetes mellitus type 2 uncontrolled, on IV insulin drip. 6. Acute urinary tract infection. 7. Hypertension. 8. History of cerebrovascular accident. 9. History of deep venous thrombosis. 10.Multiple medical issues. 11.No code, no CPR, no vent. RECOMMENDATIONS AND DISCUSSION: I recommend to continue current medications, symptomatic treatment. Continue antibiotics. Continue bronchodilators. Continue with mechanical ventilation per Pulmonary. Monitor creatinine closely. LFTs are normal so far. We will repeat labs tomorrow and see orders for details. Prognosis guarded. Further recommendations to follow. Discussion with the family is ongoing. MMSKYLERL / IJN: [id number] / PHILLIP
[2022-06-14] MEDS: MORPHINE SULFATE (100 MG/2 ML) 100 MG in SODIUM CHLORIDE 0.9% 100 ML IV SCH (14:57)
--- NOTE | 2022-06-15 07:12 | PN ---
PROGRESS NOTE SUBJECTIVE: This is a 71-year-old gentleman, who was admitted with multiple medical problems and possible anoxic brain injuries, on comfort measures. The patient is on at this time. No chest pain. No palpitations. The patient is sedated. PHYSICAL EXAMINATION: VITAL SIGNS: Pulse 74, blood pressure ntd, respirations 20. CHEST: Clear to auscultation. CARDIOVASCULAR: n ABDOMEN: Soft. NERVOUS SYSTEM: Sedated. LABORATORY DATA: Noted. ASSESSMENT: 1. Anoxic brain injury possibly secondary to prolonged cardiorespiratory arrest. 2. Possible aspiration pneumonia with sepsis and Klebsiella oxytoca. 3. Hypoxic respiratory failure, status post mechanical ventilation. 4. Multiple medical issues. RECOMMENDATIONS: I recommend to continue Continue comfort measures. Prognosis guarded. Discussed with staff. Further recommendations to follow. MMODL / IJN: [id number] / MTDD
[2022-06-15] MEDS: MORPHINE SULFATE (100 MG/2 ML) 100 MG in SODIUM CHLORIDE 0.9% 100 ML IV SCH (12:56)
[2022-06-15 15:04] VITALS: BMI 32.6
--- NOTE | 2022-06-15 15:05 | P.PN ---
Subjective Progress Note Date: 06/15/22 This is a 71-year-old male who was admitted with multiple medical problems with possible anoxic brain injuries and had been continued in the ICU on mechanical vent. CODE STATUS was addressed and patient was made no code and family opted for comfort measures. Patient continues on morphine drip at 5 ML per hour and comfort measures only. Patient is sedated and continues to be unresponsive. Review of systems: Unable to obtain as patient is sedated Active Medications Acetaminophen (Acetaminophen Suppository 650 Mg Supp) 650 mg RECTAL Q4HR PRN PRN Reason: Fever and/or Mild Pain Last Admin: 06/15/22 07:41 Dose: 650 mg Morphine Sulfate 100 mg/ (Sodium Chloride) 102 mls @ 1.02 mls/hr IV .Q24H [facility]; Protocol Last Admin: 06/15/22 12:56 Dose: 5 mg/hr, 5.1 mls/hr Lorazepam (Lorazepam 2 Mg/Ml Inj) 1 mg IV Q6HR PRN PRN Reason: Anxiety Morphine Sulfate (Morphine Sulfate 2 Mg/Ml Syringe) 2 mg IV Q15M PRN PRN Reason: Breakthrough Pain Morphine Sulfate (Morphine Sulfate 4 Mg/Ml Syringe) 4 mg IV Q15M PRN PRN Reason: Breakthrough Pain Last Admin: 06/13/22 20:22 Dose: 4 mg Ondansetron HCl (Ondansetron 4 Mg/2 Ml Vial) 4 mg IVP Q8HR PRN PRN Reason: Nausea/emesis Saliva Substitute (Dry Mouth Harrietta 44.3 Harrietta/44.3 Ml Harrietta) 1 spray MUCOUS MEM QID PRN PRN Reason: Dry Mouth Last Admin: 06/13/22 22:17 Dose: 1 spray Scopolamine (Scopolamine 1 Mg/72 Hr Patch) 1 patch TRANSDERM Q72H [facility] Last Admin: 06/13/22 20:16 Dose: 1 patch Sodium Chloride (Sodium Chloride 0.9% Flush 10 Ml Syringe) 10 ml IV BID [facility] Last Admin: 06/14/22 12:21 Dose: Not Given PHYSICAL EXAMINATION: GENERAL: The patient is unresponsive and sedated on morphine drip HEENT: Pupils are pinpoint. no scleral icterus. Oral mucosa is dry CARDIOVASCULAR: S1 and S2 muffled PULMONARY: diminished breath sounds bilaterally with some bilateral rhonchi noted. ABDOMEN: soft. obese. non-distended No palpable organomegaly. MUSCULOSKELETAL: No joint swelling or deformity. NEUROLOGICAL: Sedated SKIN: No rashes. Assessment: Anoxic brain injury possibly secondary to prolonged cardiorespiratory arrest Possible aspiration pneumonia with sepsis and Klebsiella oxytoca Hypoxic respiratory failure, status post mechanical ventilation Multiple medical issues No code Plan: Recommend to continue with current medications and comfort measures only per family request. Hospice has been consulted and patient is on comfort measures with comfort care measures ordered only. Patient is continued on a morphine drip and comfort measures only. Will continue to monitor and follow closely. The impression and plan of care has been dictated by Eileen Berkowitz, nurse practitioner as directed. Dr. Eligio MD I have performed a history and examination and MDM of this patient, discussed the same with the dictator, and agree with the dictator's assessment and plan as written ,documented as a scribe. Based on total visit time, I have performed more than 50% of the visit. Any additional findings or plans will be noted. Objective - Vital Signs Vital signs: Vital Signs Temp 100.5 F H 06/15/22 09:17 Pulse 114 H 06/15/22 07:55 Resp 13 06/15/22 07:55 BP 119/63 06/15/22 07:55 Pulse Ox 84 L 06/15/22 07:55 FiO2 21 06/13/22 20:00 Intake & Output 06/14/22 06/15/22 06/15/22 18:59 06:59 18:59 Intake Total 91.545 1200 Output Total 950 1300 Balance -858.455 -100 Intake: IV 1200 0.9 Pressure Bag 1200 Intake, IV Titration 91.545 Amount Morphine Sulfate (100 mg/ 91.545 2 ml) 100 mg In Sodium Chloride 0.9% 100 ml @ 1 MG/HR 1.02 mls/hr IV . Q24H [facility] Rx#:[id number] Output: Urine 950 1300 Other: Voiding Method Indwelling Catheter ABP, PAP, CO, CI - Last Documented Arterial Blood Pressure 152/46 - Labs CBC & Chem 7: 06/13/22 07:50 06/13/22 07:50 Labs: Microbiology - Last 24 Hours (Table) 06/09/22 13:40 Blood Culture - Preliminary Blood No Growth after 120 hours 06/09/22 13:40 Blood Culture - Preliminary Blood No Growth after 120 hours
[2022-06-15 15:24] VITALS: RESP 12
[2022-06-15 21:51] VITALS: BP 181/65; PULSE 102
[2022-06-16 00:46] VITALS: TEMP 98.8
--- NOTE | 2022-06-16 14:16 | P.DS ---
Providers Date of admission: 06/09/22 11:57 Expected date of discharge: 06/16/22 Attending physician: Risa Del Valle Consults: 06/09/22 12:27 Consult Physician Stat Consulting Provider: Risa Del Valle Consult Reason/Comments: ICU Management Do you want consulting provider notified?: Already Contacted 06/09/22 13:04 Consult Physician Stat Consulting Provider: Jose Chatterjee Consult Reason/Comments: Pt off sedation not waking up Do you want consulting provider notified?: Yes Placement Type Exists?: Yes 06/09/22 13:12 Consult Physician Routine Consulting Provider: Hugo Frederick Consult Reason/Comments: cardiac arrest, transfer from [facility] Do you want consulting provider notified?: Yes Placement Type Exists?: Yes Consult Physician Routine Consulting Provider: Ian Wiggins Consult Reason/Comments: sepsis Do you want consulting provider notified?: Yes Placement Type Exists?: Yes 06/09/22 13:14 Consult Physician Routine Consulting Provider: Nadya Perry Consult Reason/Comments: acute kidney innjury Do you want consulting provider notified?: Yes Placement Type Exists?: Yes Primary care physician: Vinay Mcgee Hospital Course: Preliminary cause of Aspiration pneumonia Final diagnosis Anoxic brain injury possibly secondary to prolonged cardiorespiratory arrest Possible aspiration pneumonia with sepsis and Klebsiella oxytoca Hypoxic respiratory failure, status post mechanical ventilation Multiple medical issues No code Discharge disposition Patient has . According to nursing documentation time of was 0235 on 06/16/2022. Total time taken is greater than 35 minutes. Hospital course This is a 71-year-old male who was recently admitted admitted with possible aspiration pneumonia with anoxic brain injury and monitored closely in the ICU on mechanical vent. Patient continued to deteriorate with no neurological response off sedation and family had opted for comfort measures. Hospice was consulted and patient was placed on comfort care orders only with morphine drip per family. According to nursing documentation time of was 0235 on 06/16/2022. Please refer to previous dictations and other consultations for further HPI. The impression and plan of care has been dictated by Eileen Berkowitz, Nurse Practitioner as directed. Dr. Eligio MD I have performed a history and examination and MDM of this patient, discussed the same with the dictator, and agree with the dictator's assessment and plan as written ,documented as a scribe. Based on total visit time, I have performed more than 50% of the visit. Patient Condition at Discharge: Poor Plan - Discharge Summary Discharge Rx Participant: Yes New Discharge Prescriptions: No Action Rivaroxaban [Xarelto] 20 mg PO DAILY lisinopriL [Zestril] 20 mg PO DAILY amLODIPine [Norvasc] 10 mg PO DAILY Furosemide [Lasix] 20 mg PO DAILY PRN PRN Reason: swelling Folic Acid 1 mg PO DAILY DULoxetine HCL [Cymbalta] 30 mg PO HS Ketorolac 0.5% Ophth Soln [Acular 0.5%] 1 drop OPHTHALMIC QID Insulin Aspart Prot/Insuln Asp [Novolog Mix 70-30 Flexpen] 75 units SQ DIRECTED Atorvastatin Calcium [Lipitor] 40 mg PO HS Discharge Medication List Atorvastatin Calcium [Lipitor] 40 mg PO HS 06/09/22 [History] DULoxetine HCL [Cymbalta] 30 mg PO HS 06/09/22 [History] Folic Acid 1 mg PO DAILY 06/09/22 [History] Furosemide [Lasix] 20 mg PO DAILY PRN 06/09/22 [History] Insulin Aspart Prot/Insuln Asp [Novolog Mix 70-30 Flexpen] 75 units SQ DIRECTED 06/09/22 [History] Ketorolac 0.5% Ophth Soln [Acular 0.5%] 1 drop OPHTHALMIC QID 06/09/22 [History] Rivaroxaban [Xarelto] 20 mg PO DAILY 06/09/22 [History] amLODIPine [Norvasc] 10 mg PO DAILY 06/09/22 [History] lisinopriL [Zestril] 20 mg PO DAILY 06/09/22 [History] Discharge Disposition: - Preliminary Cause of Preliminary Cause of : Aspiration pneumonia
--- NOTE | 2022-06-17 16:08 | P.PN ---
Subjective Progress Note Date: 06/14/22 Patient was seen for a follow-up. Patient was seen in room #459. Patient's family members were not present. Patient has been terminally extubated, on morphine drip. Patient discomfort care now. Hospice consult has been initiated. Patient continues to be comatose. No seizure-like activity reported. Objective - Vital Signs Vital signs: Vital Signs Temp 98.8 F 06/16/22 00:46 Pulse 102 H 06/15/22 19:44 Resp 12 06/15/22 19:44 BP 181/65 06/15/22 19:44 Pulse Ox 94 L 06/15/22 19:44 FiO2 21 06/13/22 20:00 ABP, PAP, CO, CI - Last Documented Arterial Blood Pressure 152/46 - Exam Patient is an elderly male, who is comatose, with GCS of 4(E1, V1, M2). Patient is comatose, now extubated. Patient is on morphine drip. Patient is breathing somewhat comfortably. Detailed testing deferred. - Labs CBC & Chem 7: 06/13/22 07:50 06/13/22 07:50 Assessment and Plan Assessment: * Status post cardiac arrest, with unclear downtime. Patient at present comatose with GCS of 4. 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 * Ventilator-dependent respiratory failure, on mechanical ventilation. Status post terminal extubation. * Patient now Comfort Care. * Hypertension * Diabetes2 * History of recurrent falls in the last 1 year. Plan: * Patient has been terminally extubated. Patient is comfort care. Patient on morphine drip. * Prognosis is extremely poor. * Hospice has been consulted. * Neurology will sign off.
--- NOTE | 2022-06-18 12:08 | CDI ---
Documentation Clarification Form Date: 06/18/22 From: Nuria Campo Admit Date: 06/09/2022 11:57:00 AM Patient Name: Hung Edouard Visit Number: [id number] Discharge Date: 06/16/2022 04:44:00 AM ATTENTION: The Clinical Documentation Specialists (CDI) and [facility] Coding Staff appreciate your assistance in clarifying documentation. Please respond to the clarification below the line at the bottom and electronically sign. The CDI & [facility] Coding staff will review the response and follow-up if needed. Please note: Queries are made part of the Legal Health Record. If you have any questions, please contact the author of this message via ITS. Dr. Risa Del Valle, A Stage II bilateral buttock pressure ulcer is documented in the Nursing Pressure Injury Assessment on 06/10. Based on this information and the findings below, is there an additional diagnosis that is clinically appropriate for this patient? History/Risk Factors: Gram negative sepsis w septic shock, acute hypoxic respiratory failure, ATN, aspiration pneumonia, NSTEMI, anoxic brain damage Clinical Indicators: Bilateral buttock pressure injury, Stage II, red & macerated Treatment: foam w/border Is there an additional diagnosis that is clinically appropriate for this patient? [ ] Bilateral buttock Pressure Ulcer Stage 2, POA [ ] Bilateral buttock Pressure Ulcer unstageable, POA [ ] Other condition, please specify [ ] Unable to determine Clinical Definitions: Stage 1 Pressure Ulcer: intact skin, non-blanching redness of local area Stage 2 Pressure Ulcer: Partial thickness, loss of dermis, pink wound bed Stage 3 Pressure Ulcer: Full thickness tissue loss Stage 4 Pressure Ulcer: Full thickness tissue loss with exposed bone, tendon, or muscle. Unstageable pressure ulcer: Full thickness tissue loss in which the base of the ulcer is covered by slough (yellow, fam, zhao, green or brown) and/or eschar (fam, brown or black) in the wound bed. Bilateral buttock Pressure Ulcer Stage 2, POA MTDD
== END 2022-06-16 04:44 | disposition expired | DRG 870 ==
LOC: 2SICU 11:57 → 4SSUR 06-14 01:00
PROVIDERS: ADMIT Hospitalist; ATTEND Hospitalist
PROC: 5A1955Z Respiratory Ventilation, Greater than 96 Consecutive Hours (ICD-10-PCS; principal; 2022-06-09)
PROC: 3E0G76Z Introduction of Nutritional Substance into Upper GI, Via Natural or Artificial Opening (ICD-10-PCS; 2022-06-09)
PROC: 4A133B1 Monitoring of Arterial Pressure, Peripheral, Percutaneous Approach (ICD-10-PCS; 2022-06-09)
PROC: 4A133J1 Monitoring of Arterial Pulse, Peripheral, Percutaneous Approach (ICD-10-PCS; 2022-06-09)
PROC: 03HY32Z Insertion of Monitoring Device into Upper Artery, Percutaneous Approach (ICD-10-PCS; 2022-06-09)
DX: A41.59 Other Gram-negative sepsis (principal); J96.01 Acute respiratory failure with hypoxia; N17.0 Acute kidney failure with tubular necrosis; J69.0 Pneumonitis due to inhalation of food and vomit; R65.21 Severe sepsis with septic shock; I21.4 Non-ST elevation (NSTEMI) myocardial infarction; J15.0 Pneumonia due to Klebsiella pneumoniae; G93.1 Anoxic brain damage, not elsewhere classified; E87.2 Acidosis; E87.0 Hyperosmolality and hypernatremia; N39.0 Urinary tract infection, site not specified; I46.9 Cardiac arrest, cause unspecified; L89.322 Pressure ulcer of left buttock, stage 2; L89.312 Pressure ulcer of right buttock, stage 2; E11.22 Type 2 diabetes mellitus with diabetic chronic kidney disease; N18.30 Chronic kidney disease, stage 3 unspecified; G31.9 Degenerative disease of nervous system, unspecified; E11.65 Type 2 diabetes mellitus with hyperglycemia; Z86.73 Personal history of transient ischemic attack (TIA), and cerebral infarction without residual deficits; I48.91 Unspecified atrial fibrillation; Z79.4 Long term (current) use of insulin; Z66 Do not resuscitate; Z51.5 Encounter for palliative care; I12.9 Hypertensive chronic kidney disease with stage 1 through stage 4 chronic kidney disease, or unspecified chronic kidney disease; K21.9 Gastro-esophageal reflux disease without esophagitis; R29.6 Repeated falls; M19.90 Unspecified osteoarthritis, unspecified site; T88.4XXA Failed or difficult intubation, initial encounter; Z86.718 Personal history of other venous thrombosis and embolism; Z79.01 Long term (current) use of anticoagulants; Z79.899 Other long term (current) drug therapy
CPT/HCPCS: 70450; 71045; 76770; 80048; 80053; 81001; 82805; 83036; 83735; 84484; 85025; 85610; 87040; 94002; 94003; 94640; 95816; 95822